=== PATIENT | male | born 1960 | race Caucasian/White ===

== ENCOUNTER 2021-02-25 09:42 | Inpatient (IN) | payer OTHER ==
[2021-02-25 10:19] LABS: Absolute Lymphocytes (CBC) 1.8 K/uL (0.7-4.9); Basophils % 0.6 % (0-1.3); Hematocrit 46.7 % (39.6-49.0); Lymphocytes % 21.3 % (15.3-44.8); MPV 8.1 fL (7.6-11.3); RBC Red Blood Cell Count 4.72 M/uL (4.33-5.43)
[2021-02-25] MEDS ORDERED: METOPROLOL TAR 50 MG TAB ONE (10:19)
[2021-02-25] MEDS ORDERED: NA CHLORIDE 0.9% 1,000 ML ONE (10:19)
[2021-02-25 10:20] LABS: Protime INR 1.05
[2021-02-25] MEDS ORDERED: METOPROLOL TARTRATE 5 MG/5 ML INJ IV ONE ×2 (10:23→11:41)
[2021-02-25] MEDS ORDERED: ENOXAPARIN 100 MG/ML SYR SQ ONE (10:27)
[2021-02-25 10:36] LABS: ALT/SGPT 57 U/L (12-78); AST/SGOT 34 U/L (15-37); Albumin 4.2 g/dL (3.4-5.0); Alkaline Phosphatase 87 U/L (45-117); BUN Blood Urea Nitrogen 13 mg/dL (7-18); Bicarbonate 27 mmol/L (21-32); Bilirubin Direct 0.3 mg/dL (0-0.2); Bilirubin Total 1.1 mg/dL (0.2-1.0); Glucose Level 114 mg/dL (74-106); NT PRO-BNP 2197 pg/mL (<125); Potassium 3.9 mmol/L (3.5-5.1); Protein, Total 7.9 g/dL (6.4-8.2); Sodium Level 138 mmol/L (136-145); Troponin (Emerg Dept Use Only) < 0.02 ng/mL (0.0-0.045)
[2021-02-25] MEDS ORDERED: THIAMINE 200 MG/2 ML INJ ONE (10:44)
[2021-02-25] MEDS ORDERED: Magnesium Sulfate 2gm IVPB 0 G/0 ML BAG IV ONE (10:45)
[2021-02-25] MEDS ORDERED: NA CHLORIDE 0.9% 100 ML ONE (10:48)
[2021-02-25] MEDS ORDERED: FOLIC ACID 5 MG/ML VIAL ONE ×2 (10:49→10:50)
[2021-02-25] MEDS ORDERED: MAGNESIUM SULFATE 1 gm IVPB 1 GM/100 ML BAG IV ONE (10:52)
--- NOTE | 2021-02-25 10:55 | ER ---
Nurse's Notes [facility] Name: Abel Birch Age: 60 yrs Sex: Male : 1960 Arrival Date: 02/25/2021 Time: 09:44 Bed 4 Private MD: Diagnosis: Palpitations;Persistent atrial fibrillation-with rvr;Alcohol abuse Presentation: 02/25 09:52 Chief complaint: Patient states: Rapid heart rate, started yesterday, denies cardiac jl7 history. Coronavirus screen: Vaccine status: Patient reports being unvaccinated. At this time, the client does not indicate any symptoms associated with coronavirus-19. Ebola Screen: No symptoms or risks identified at this time. Initial Sepsis Screen: Does the patient meet any 2 criteria? No. Patient's initial sepsis screen is negative. Does the patient have a suspected source of infection? No. Patient's initial sepsis screen is negative. Risk Assessment: Do you want to hurt yourself or someone else? Patient reports no desire to harm self or others. Onset of symptoms was February 24, 2021. 09:52 Method Of Arrival: Wheelchair jl7 09:52 Acuity: HOMERO 2 jl7 Triage Assessment: 09:55 General: Appears in no apparent distress. uncomfortable, Behavior is calm, cooperative, jl7 appropriate for age. Pain: Denies pain. Cardiovascular: Patient's skin is warm and dry. Historical: - Allergies: 09:54 PENICILLINS; jl7 - Home Meds: 09:54 None [Active]; jl7 - PMHx: 09:54 None; jl7 - PSHx: 09:54 bilateral shoulder; left knee; jl7 - Immunization history:: Adult Immunizations not up to date, Client reports having NOT received the Covid vaccine. - Social history:: Smoking status: Patient denies any tobacco usage or history of. Patient uses alcohol, on a daily basis. Vodka, 5-6 drinks per day, last drink yesterday. - Family history:: not pertinent. Screenin:56 Abuse screen: Denies threats or abuse. Denies injuries from another. Nutritional jl7 screening: No deficits noted. Tuberculosis screening: No symptoms or risk factors identified. 10:12 Fall Risk None identified. No fall in past 12 months (0 pts). tw5 Assessment: 10:12 General: Appears in no apparent distress. Behavior is calm, cooperative, anxious, tw5 Reports "I just didn't feel right." He states that this started yesterday. "I sometimes feel like my head was throbbing and some lightheadness. So I check my blood pressure and heart rate.". Pain: Denies pain. Pain began. Neuro: Level of Consciousness is awake, alert, obeys commands, Oriented to person, place, time, situation. Cardiovascular: Heart tones present Capillary refill < 3 seconds is brisk in bilateral fingers Pulses are 1+ in right radial artery and left radial artery Rhythm is SVT. Respiratory: Airway is patent Trachea midline Respiratory effort is even, unlabored, Respiratory pattern is regular. Derm: Skin is intact, is healthy with good turgor, Skin is diaphoretic, Skin is pink, Skin temperature is cool. Musculoskeletal: No signs and/or symptoms reported regarding the musculoskeletal system. 10:32 Reassessment: Patient appears in no apparent distress at this time. No changes from tw5 previously documented assessment. 10:50 : Urine is clear. tw5 12:38 Reassessment: Patient states symptoms have improved. General: Appears in no apparent tw5 distress. Behavior is calm, cooperative, Reports "I am feeling good.". Cardiovascular: Rhythm is atrial flutter. Vital Signs: 09:52 BP 133 / 96; Pulse 157; Resp 19; Temp 98.3; Pulse Ox 100% on R/A; Weight 92.99 kg; Pain jl7 0/10; 10:12 BP 102 / 83; Pulse 153; Resp 16; Pulse Ox 100% on R/A; Pain 0/10; tw5 11:11 BP 129 / 101; Pulse 126; Resp 18; Pulse Ox 100% on R/A; tr6 12:00 BP 133 / 84; Pulse 85; Resp 18; Pulse Ox 97% on R/A; tr6 12:38 BP 126 / 96; Pulse 77; Resp 16; Pulse Ox 100% on R/A; tw5 ED Course: 09:44 Patient arrived in ED. as 09:49 Pablo Myers MD is Attending Physician. aubree 09:54 Triage completed. jl7 09:55 Arm band placed on right wrist. jl7 09:56 Patient maintains SpO2 saturation greater than 95% on room air. jl7 10:00 No apparent distress. Awaiting lab results. tw5 10:00 Inserted saline lock: 20 gauge in left antecubital area, using aseptic technique. Blood tw5 collected. 10:00 Initial lab(s) drawn, by me, EKG done, by ED staff, COVID swab sent to lab. tw5 10:01 Donna Bejarano is Primary Nurse. tw5 10:12 Patient has correct armband on for positive identification. Placed in gown. Bed in low tw5 position. Call light in reach. Side rails up X 1. [employer] on. Pulse ox on. NIBP on. Door closed. Noise minimized. Lights dimmed. Warm blanket given. Verbal reassurance given. 10:50 Fracisco Kelly DO is Hospitalizing Provider. [facility] 10:50 X-ray(s) taken. tw5 10:55 XRAY Chest (1 view) In Process Unspecified. EDMS 11:27 No provider procedures requiring assistance completed. tr6 12:20 Patient admitted, IV remains in place. tr6 12:38 Awaiting bed assignment. tw5 12:38 Door closed. Noise minimized. Lights dimmed. Verbal reassurance given. tw5 Administered Medications: 10:07 Drug: Lopressor (metoprolol) 5 mg Route: IVP; Site: right antecubital; tw5 10:32 Follow up: Response: No adverse reaction tw5 10:32 Follow up: Response: Cardiac rhythm is unchanged tw5 10:08 Drug: NS 0.9% 1000 ml Route: IV; Rate: 125 ml/hr; Site: right antecubital; tw5 10:08 Drug: Lopressor (metoprolol TARTRATE) 50 mg Route: PO; tw5 12:40 Follow up: Response: No adverse reaction tw5 10:12 Drug: Lovenox (enoxaparin) 90 mg Route: Sub-Q; Site: right lower abdomen; tw5 10:32 Follow up: Response: No adverse reaction tw5 10:35 Drug: Thiamine 100 mg Route: IV; Rate: bolus; Site: right antecubital; tw5 12:40 Follow up: Response: No adverse reaction; IV Status: Completed infusion tw5 10:35 Drug: foLIC Acid 1 mg Route: IVPB; Site: right antecubital; tw5 12:40 Follow up: Response: No adverse reaction; IV Status: Completed infusion tw5 11:13 Drug: Lopressor (metoprolol) 5 mg Route: IVP; Site: right antecubital; 5 12:41 Follow up: Response: No adverse reaction tw5 11:23 Drug: Lopressor (metoprolol) 5 mg Route: IVP; Site: right antecubital; 5 12:40 Follow up: Response: No adverse reaction; Cardiac rhythm changed tw5 11:23 Drug: Digoxin 0.5 mg Route: IVP; Site: right antecubital; 5 12:39 Follow up: Response: No adverse reaction; Cardiac rhythm changed tw5 11:29 Drug: Magnesium Sulfate 1 grams Route: IVPB; Infused Over: 1 hrs; Site: right ch5 antecubital; 14:41 Follow up: Response: No adverse reaction; IV Status: Completed infusion tw5 Outcome: 10:55 Decision to Hospitalize by Provider. aubree 12:20 Admitted to Tele tr6 12:20 Condition: stable 12:20 Instructed on the need for admit, Demonstrated understanding of instructions. 18:05 Patient left the ED. jl7 Signatures: Dispatcher [employer] EDPablo Carbajal MD MD cha Martinez, Amelia as Leal, Jahala, RN RN jl7 Donna Major RN RN tr6 Jose Eduardo Fleming RN RN 5 Donna Bejarano tw5 Corrections: (The following items were deleted from the chart) 09:55 09:54 Allergies: No Known Allergies; jlGary jl7
--- NOTE | 2021-02-25 10:55 | EDPHYS ---
Physician Documentation [facility] Name: Abel Birch Age: 60 yrs Sex: Male : 1960 Arrival Date: 02/25/2021 Time: 09:44 Bed 4 Private MD: LASHELL Physician Pablo Myers HPI: 02/25 10:13 This 60 yrs old Male presents to ER via Wheelchair with complaints of aubree Irregular Pulse. 10:13 The patient presents with a history of irregular heart beat, heart racing. Context: The aubree symptoms occur with anxiety. Onset: The symptoms/episode began/occurred 1 day(s) ago. Duration: The patient or guardian reports a single episode, that is still ongoing, but improving, The patient or guardian reports multiple episodes, that have now resolved. Modifying factors: The symptoms are aggravated by anxiety, The symptoms are alleviated by nothing. Associated signs and symptoms: The patient has no apparent associated signs or symptoms. Severity of symptoms: At their worst the symptoms were mild in the emergency department the symptoms are unchanged. The patient has not experienced similar symptoms in the past. Historical: - Allergies: 09:54 PENICILLINS; jl7 - Home Meds: 09:54 None [Active]; jl7 - PMHx: 09:54 None; jl7 - PSHx: 09:54 bilateral shoulder; left knee; jl7 - Immunization history:: Adult Immunizations not up to date, Client reports having NOT received the Covid vaccine. - Social history:: Smoking status: Patient denies any tobacco usage or history of. Patient uses alcohol, on a daily basis. Vodka, 5-6 drinks per day, last drink yesterday. - Family history:: not pertinent. ROS: 10:13 Constitutional: Negative for fever, chills, and weight loss, Eyes: Negative for injury, aubree pain, redness, and discharge, ENT: Negative for injury, pain, and discharge, Neck: Negative for injury, pain, and swelling, Respiratory: Negative for shortness of breath, cough, wheezing, and pleuritic chest pain, Abdomen/GI: Negative for abdominal pain, nausea, vomiting, diarrhea, and constipation, Back: Negative for injury and pain, : Negative for injury, bleeding, discharge, and swelling, MS/Extremity: Negative for injury and deformity, Skin: Negative for injury, rash, and discoloration, Neuro: Negative for headache, weakness, numbness, tingling, and seizure, Psych: Negative for depression, anxiety, suicide ideation, homicidal ideation, and hallucinations, Allergy/Immunology: Negative for hives, rash, and allergies, Endocrine: Negative for neck swelling, polydipsia, polyuria, polyphagia, and marked weight changes, Hematologic/Lymphatic: Negative for swollen nodes, abnormal bleeding, and unusual bruising. 10:13 Cardiovascular: Positive for palpitations. Exam: 10:13 Constitutional: This is a well developed, well nourished patient who is awake, alert, aubree and in no acute distress. Head/Face: Normocephalic, atraumatic. Eyes: Pupils equal round and reactive to light, extra-ocular motions intact. Lids and lashes normal. Conjunctiva and sclera are non-icteric and not injected. Cornea within normal limits. Periorbital areas with no swelling, redness, or edema. ENT: Nares patent. No nasal discharge, no septal abnormalities noted. Tympanic membranes are normal and external auditory canals are clear. Oropharynx with no redness, swelling, or masses, exudates, or evidence of obstruction, uvula midline. Mucous membranes moist. Neck: Trachea midline, no thyromegaly or masses palpated, and no cervical lymphadenopathy. Supple, full range of motion without nuchal rigidity, or vertebral point tenderness. No Meningismus. Chest/axilla: Normal chest wall appearance and motion. Nontender with no deformity. No lesions are appreciated. Respiratory: Lungs have equal breath sounds bilaterally, clear to auscultation and percussion. No rales, rhonchi or wheezes noted. No increased work of breathing, no retractions or nasal flaring. Abdomen/GI: Soft, non-tender, with normal bowel sounds. No distension or tympany. No guarding or rebound. No evidence of tenderness throughout. Back: No spinal tenderness. No costovertebral tenderness. Full range of motion. Male : Normal genitalia with no discharge or lesions. Skin: Warm, dry with normal turgor. Normal color with no rashes, no lesions, and no evidence of cellulitis. MS/ Extremity: Pulses equal, no cyanosis. Neurovascular intact. Full, normal range of motion. Neuro: Awake and alert, GCS 15, oriented to person, place, time, and situation. Cranial nerves II-XII grossly intact. Motor strength 5/5 in all extremities. Sensory grossly intact. Cerebellar exam normal. Normal gait. Psych: Awake, alert, with orientation to person, place and time. Behavior, mood, and affect are within normal limits. 10:13 Cardiovascular: Rate: tachycardic, Rhythm: irregularly irregular, Pulses: Pulses are 4+ in bilateral radial, brachial, femoral, popliteal, posterior tibial and and dorsalis pedis arteries.. Heart sounds: normal, Edema: is not appreciated, JVD: is not appreciated. Vital Signs: 09:52 BP 133 / 96; Pulse 157; Resp 19; Temp 98.3; Pulse Ox 100% on R/A; Weight 92.99 kg; Pain jl7 0/10; 10:12 BP 102 / 83; Pulse 153; Resp 16; Pulse Ox 100% on R/A; Pain 0/10; tw5 11:11 BP 129 / 101; Pulse 126; Resp 18; Pulse Ox 100% on R/A; tr6 12:00 BP 133 / 84; Pulse 85; Resp 18; Pulse Ox 97% on R/A; tr6 12:38 BP 126 / 96; Pulse 77; Resp 16; Pulse Ox 100% on R/A; tw5 MDM: 09:49 Patient medically screened. aubree 10:49 CINTHIA Risk Score: Total Score = 0. Differential diagnosis: arrythmia, dehydration, aubree stress disorder. Data reviewed: vital signs, nurses notes, lab test result(s), EKG, radiologic studies, plain films. Data interpreted: engine monitor: rate is 153 beats/min, rhythm is atrial fibrillation, irregularly irregular, Pulse oximetry: on room air is 100 %. Test interpretation: by ED physician or midlevel provider: ECG, plain radiologic studies. Counseling: I had a detailed discussion with the patient and/or guardian regarding: the presence of at least one elevated blood pressure reading (>120/80) during this emergency department visit, lab results, radiology results, the need for further work-up and treatment in the hospital. 02/25 09:51 Order name: Basic Metabolic Panel; Complete Time: 11:06 [facility] 02/25 09:51 Order name: CBC with Diff; Complete Time: 10:44 [facility] 02/25 09:51 Order name: LFT's; Complete Time: 11:06 [facility] 02/25 09:51 Order name: Magnesium; Complete Time: 11:06 [facility] 02/25 09:51 Order name: NT PRO-BNP; Complete Time: 11:06 [facility] 02/25 09:51 Order name: PT-INR; Complete Time: 10:44 [facility] 02/25 09:51 Order name: Troponin (emerg Dept Use Only); Complete Time: 11:06 [facility] 02/25 09:51 Order name: XRAY Chest (1 view); Complete Time: 14:42 [facility] 02/25 09:51 Order name: TSH; Complete Time: 11:06 [facility] 02/25 09:51 Order name: Echo w/ Doppler [facility] 02/25 10:40 Order name: T4 Free; Complete Time: 11:06 [facility] 02/25 11:02 Order name: Urine Dipstick-Ancillary; Complete Time: 11:06 [facility] 02/25 11:13 Order name: SARS-COV-2 RT PCR; Complete Time: 14:42 [facility] 02/25 09:51 Order name: EKG; Complete Time: 09:52 [facility] 02/25 09:51 Order name: Cardiac monitoring; Complete Time: 10:03 [facility] 02/25 09:51 Order name: EKG - Nurse/Tech; Complete Time: 10:03 [facility] 02/25 10:29 Order name: EKG; Complete Time: 10:30 [facility] 02/25 13:17 Order name: Echo with Doppler [facility] 02/25 14:52 Order name: Diet Heart Healthy; Complete Time: 14:53 [facility] 02/25 09:51 Order name: IV Saline Lock; Complete Time: 10:02 [facility] 02/25 09:51 Order name: Labs collected and sent; Complete Time: 10:02 [facility] 02/25 09:51 Order name: O2 Per Protocol; Complete Time: 10:06 [facility] 02/25 09:51 Order name: O2 Sat Monitoring; Complete Time: 10:06 [facility] 02/25 09:51 Order name: Urine Dipstick-Ancillary (obtain specimen); Complete Time: 12:20 [facility] 02/25 10:29 Order name: EKG - Nurse/Tech; Complete Time: 10:43 [facility] Administered Medications: 10:07 Drug: Lopressor (metoprolol) 5 mg Route: IVP; Site: right antecubital; tw5 10:32 Follow up: Response: No adverse reaction tw5 10:32 Follow up: Response: Cardiac rhythm is unchanged tw5 10:08 Drug: NS 0.9% 1000 ml Route: IV; Rate: 125 ml/hr; Site: right antecubital; tw5 10:08 Drug: Lopressor (metoprolol TARTRATE) 50 mg Route: PO; tw5 12:40 Follow up: Response: No adverse reaction tw5 10:12 Drug: Lovenox (enoxaparin) 90 mg Route: Sub-Q; Site: right lower abdomen; tw5 10:32 Follow up: Response: No adverse reaction tw5 10:35 Drug: Thiamine 100 mg Route: IV; Rate: bolus; Site: right antecubital; tw5 12:40 Follow up: Response: No adverse reaction; IV Status: Completed infusion tw5 10:35 Drug: foLIC Acid 1 mg Route: IVPB; Site: right antecubital; tw5 12:40 Follow up: Response: No adverse reaction; IV Status: Completed infusion tw5 11:13 Drug: Lopressor (metoprolol) 5 mg Route: IVP; Site: right antecubital; ch5 12:41 Follow up: Response: No adverse reaction tw5 11:23 Drug: Lopressor (metoprolol) 5 mg Route: IVP; Site: right antecubital; ch5 12:40 Follow up: Response: No adverse reaction; Cardiac rhythm changed tw5 11:23 Drug: Digoxin 0.5 mg Route: IVP; Site: right antecubital; ch5 12:39 Follow up: Response: No adverse reaction; Cardiac rhythm changed tw5 11:29 Drug: Magnesium Sulfate 1 grams Route: IVPB; Infused Over: 1 hrs; Site: right ch5 antecubital; 14:41 Follow up: Response: No adverse reaction; IV Status: Completed infusion tw5 Disposition Summary: 02/25/21 10:55 Hospitalization Ordered Hospitalization Status: Observation aubree Provider: Fracisco Kelly cha Location: Telemetry/MedSurg (observation) aubree Condition: Fair aubree Problem: new aubree Symptoms: have improved aubree Bed/Room Type: Standard aubree Room Assignment: 429(02/25/21 17:03) bd Diagnosis - Palpitations aubree - Persistent atrial fibrillation - with rvr aubree - Alcohol abuse aubree Forms: - Medication Reconciliation Form aubree - SBAR form aubree Signatures: Dispatcher [employer] EDMS Dirrim, Inge bd Louis, Pablo, MD MD aubree Magallanes, Jahala, RN RN jl7 Jose Eduardo Fleming RN RN 5 Donna Bejarano 5 Corrections: (The following items were deleted from the chart) 09:55 09:54 Allergies: No Known Allergies; lázaro jl7 10:19 10:01 CORONAVIRUS+.BRZ ordered. EDMS EDMS 17:03 10:55 aubree munoz
[2021-02-25 11:02] LABS: Urine Blood Negative (Negative); Urine Glucose Negative (Negative); Urine Protein Negative (Negative); Urine Specific Gravity 1.015 (1.005-1.030); Urine pH 6.5 (5.0-7.0)
[2021-02-25] MEDS ORDERED: DIGOXIN 0.25 MG/ML AMP ONE (11:41)
--- NOTE | 2021-02-25 12:23 | RAD REPORT ---
EXAM DESCRIPTION: RAD - Chest Single View - 02/25/2021 10:55 am CLINICAL HISTORY: COUGH COMPARISON: None TECHNIQUE: AP portable chest image was obtained 02/25/2021 10:55 am . FINDINGS: Lungs are clear. Heart size is upper normal. Vasculature within normal limits. No measurab le pleural effusion and no pneumothorax. No acute bony abnormality seen. No acute aortic findings claudio pected. IMPRESSION: No acute cardiopulmonary process.
[2021-02-25 14:38] VITALS: BMI 29.4
--- NOTE | 2021-02-25 14:57 | P.HP ---
Certification for Inpatient Patient admitted to: Observation With expected LOS: <2 Midnights Patient will require the following post-hospital care: None Practitioner: I am a practitioner with admitting privileges, knowledge of patient current condition, hospital course, and medical plan of care. Services: Services provided to patient in accordance with Admission requirements found in Title 42 Section 412.3 of the Code of Federal Regulations Patient History Date of Service: 02/25/21 Primary Care Provider: Dr. Medina Reason for admission: Palpitations, SOB History of Present Illness: 60-year-old male presented to the emergency room with palpitations and shortness of breath. Patient reported symptoms since yesterday. Patient also reports similar episodes about a year ago. He denies any significant chest pain, edema, fever or chills. He came to the ER for further evaluation. In the ER patient was evaluated. Patient found to have atrial fibrillation with RVR. Patient was given metoprolol IV 5 mg then 50 mg oral. Heart rate has improved. Patient admitted for further evaluation and treatment. Patient stable at this time. Patient admits to alcohol use. No prior history of atrial fibrillation. No family history of atrial fibrillation that he reports. Allergies Penicillins Allergy (Verified 02/25/21 14:17) Rash Home Medications: NK [No Home Meds] 02/25/21 - Past Medical/Surgical History Has patient received pneumonia vaccine in the past: Yes Diabetic: No Past Medical History: Patient denies medical history -: Left shoulder surgery- 2015 -: Left Knee Surgery-2007 Psychosocial/ Personal History: Patient lives at home - Family History Family History: Reviewed- Non-Contributory - Social History Smoking Status: Never smoker Alcohol use: Yes CD- Drugs: No Caffeine use: Yes Place of Residence: Home Review of Systems General: As per HPI Eyes: As per HPI ENT: Unremarkable Respiratory: Shortness of Breath, As per HPI Cardiovascular: Palpitations, As per HPI Gastrointestinal: Unremarkable Genitourinary: Unremarkable Musculoskeletal: Unremarkable Integumentary: Unremarkable Neurological: Unremarkable Lymphatics: Unremarkable Physical Examination - Vital Signs Blood Pressure: 138/95 Pulse: 79 Respirations: 16 Pulse Ox (%): 100 - Studies Laboratory Data (last 24 hrs) 02/25/21 10:00: PT 12.1, INR 1.05 02/25/21 10:00: WBC 8.40, Hgb 15.7, Hct 46.7, Plt Count 212 02/25/21 10:00: Sodium 138, Potassium 3.9, BUN 13, Creatinine 1.00, Glucose 114 H, Magnesium 2.0, Total Bilirubin 1.1 H, AST 34, ALT 57, Alkaline Phosphatase 87 Assessment and Plan - Plan Physical Exam: GENERAL: The patient is a well-developed, well-nourished, in no apparent distress. Alert and oriented x3. VITAL SIGNS: Reviewed HEENT: Head is normocephalic and atraumatic. Extraocular muscles are intact. Pupils are equal, round, and reactive to light and accommodation. Nares appeared normal. Mouth is well hydrated and without lesions. Mucous membranes are moist. NECK: Supple. No carotid bruits. No lymphadenopathy or thyromegaly. LUNGS: Clear to auscultation. No crackles or wheezes are heard. HEART: Atrial fibrillation rate controlled ABDOMEN: Soft, nontender, and nondistended. Positive bowel sounds. No hepatosplenomegaly was noted. EXTREMITIES: Without any cyanosis, clubbing, rash, lesions or peripheral edema. NEUROLOGIC: The patient is oriented to person, place and time. Strength and sensation are grossly intact. Face is symmetric. SKIN: Normal color, turgor and temperature. No ulcerations or rashes noted. Impression: Atrial fibrillation with RVR Hypertension Alcohol use Plan: Atrial fibrillation with RVR: Patient admitted for further evaluation and observation. Will continue with metoprolol 50 mg 1 pill twice daily. Will start Lovenox at 1 mg/kg subcu twice daily. Will obtain echocardiogram to further evaluate. Case discussed with cardiology. Await further recommendations from cardiology. We will also start thiamine and folic acid. Alcohol cessation addressed in detail. Patient plans to quit. Will monitor the patient closely. Hopefully patient will convert back to normal rhythm. If this persists await recommendations by cardiology. Hypertension: Continue with metoprolol. May require additional medication. Alcohol use: Patient admits to alcohol use. Cessation education provided. Patient plans to quit. Code Status: Full Code DVT prophylaxis: Lovenox Advanced Care Planning-30 minutes: Home at discharge Discharge Plan: Home Plan to discharge in: 48 Hours - Advance Directives Does patient have a Living Will: No Does patient have a Durable POA for Healthcare: No Time Spent Managing Pts Care (In Minutes): 55
--- NOTE | 2021-02-25 16:40 | EKG ---
Test Date: 2021-02-25 Test Time: 09:58:44 Brakes Inspector: RICKIE MEASUREMENT RESULTS: Intervals: Rate: 159 MI: QRSD: 104 QT: 308 QTc: 501 [place]: P: MI: QRS: 20 T: -80 INTERPRETIVE STATEMENTS: Supraventricular tachycardia Incomplete right bundle branch block Septal infarct, age undetermined ST & T wave abnormality, consider inferolateral ischemia Abnormal ECG No previous ECG available for comparison Electronically Signed On 02-25-21 16:38:52 CDT by Kit Daniels
--- NOTE | 2021-02-25 17:21 | P.DS ---
Admission Date: 02/25/21 Discharge Date: 02/25/21 Primary Care Provider: Dr. Medina Disposition: ROUTINE DISCHARGE Discharge Condition: GOOD Reason for Admission: Palpitations, SOB Consultations: Cardiology-Dr. Daniels Procedures: Medical problem list Atrial fibrillation with RVR Hypertension Alcohol use Brief History of Present Illness: 60-year-old male presented to the emergency room with palpitations and shortness of breath. Patient reported symptoms since yesterday. Patient also reports similar episodes about a year ago. He denies any significant chest pain, edema, fever or chills. He came to the ER for further evaluation. In the ER patient was evaluated. Patient found to have atrial fibrillation with RVR. Patient was given metoprolol IV 5 mg then 50 mg oral. Heart rate has improved. Patient admitted for further evaluation and treatment. Patient stable at this time. Patient admits to alcohol use. No prior history of atrial fibrillation. No family history of atrial fibrillation that he reports. Hospital Course: Patient presented with atrial fibrillation with RVR. Patient was started on metoprolol IV and switched over to oral metoprolol. Patient converted to normal sinus rhythm. Patient was seen and evaluated by cardiology. This was likely related to his alcohol use. Patient admits to severe alcohol use. Patient plans to quit. Case discussed at length with cardiology. Patient will be discharged home. Patient will continue with metoprolol XL 50 mg daily and aspirin 81 mg daily. Recommend follow-up with cardiology in 1 to 2 weeks to follow-up his hospitalization. Patient with alcohol abuse. Patient plans to quit. Alcohol cessation education provided. Patient with hypertension. As mentioned above patient will continue with metoprolol XL 50 mg daily. Blood pressure stable at this time. Recommend to maintain blood pressure less than 130/80. Further adjustment can be done by his PCP. Vital Signs/Physical Exam: Temp Pulse Resp BP Pulse Ox 98.5 F 53 16 140/93 H 99 02/25/21 16:00 02/25/21 16:00 02/25/21 16:00 02/25/21 16:02/25/21 16:00 General: Alert, In no apparent distress, Oriented x3, Cooperative HEENT: Atraumatic Neck: Supple Respiratory: Clear to auscultation bilaterally, Normal air movement Cardiovascular: Normal pulses, Regular rate/rhythm Gastrointestinal: Normal bowel sounds, No tenderness, No masses, No rebound, No guarding Musculoskeletal: No erythema, No tenderness, No warmth Integumentary: No tenderness/swelling Neurological: Normal speech, Normal strength at 5/5 x4 extr, Normal tone, Normal affect Laboratory Data at Discharge: WBC 8.40 K/uL (4.3-10.9) 02/25/21 10:00 Hgb 15.7 g/dL (13.6-17.9) 02/25/21 10:00 Hct 46.7 % (39.6-49.0) 02/25/21 10:00 Plt Count 212 K/uL (152-406) 02/25/21 10:00 PT 12.1 SECONDS (9.5-12.5) 02/25/21 10:00 INR 1.05 02/25/21 10:00 Sodium 138 mmol/L (136-145) 02/25/21 10:00 Potassium 3.9 mmol/L (3.5-5.1) 02/25/21 10:00 BUN 13 mg/dL (7-18) 02/25/21 10:00 Creatinine 1.00 mg/dL (0.55-1.3) 02/25/21 10:00 Glucose 114 mg/dL (74-106) H 02/25/21 10:00 Magnesium 2.0 mg/dL (1.8-2.4) 02/25/21 10:00 Total Bilirubin 1.1 mg/dL (0.2-1.0) H 02/25/21 10:00 AST 34 U/L (15-37) 02/25/21 10:00 ALT 57 U/L (12-78) 02/25/21 10:00 Alkaline Phosphatase 87 U/L (45-117) 02/25/21 10:00 Home Medications: Aspirin [Aspirin EC 81 MG] 81 mg PO DAILY #90 tablet. 02/25/21 Metoprolol Succinate [Toprol Xl] 50 mg PO DAILY #30 tab 02/25/21 Thiamine HCl 100 mg PO DAILY #90 tablet 02/25/21 New Medications: Aspirin [Aspirin EC 81 MG] 81 mg PO DAILY #90 tablet. Thiamine HCl 100 mg PO DAILY #90 tablet Metoprolol Succinate [Toprol Xl] 50 mg PO DAILY #30 tab Physician Discharge Instructions: Patient presented with atrial fibrillation with RVR. Patient was started on metoprolol IV and switched over to oral metoprolol. Patient converted to normal sinus rhythm. Patient was seen and evaluated by cardiology. This was likely related to his alcohol use. Patient admits to severe alcohol use. Patient plans to quit. Case discussed at length with cardiology. Patient will be discharged home. Patient will continue with metoprolol XL 50 mg daily and aspirin 81 mg daily. Recommend follow-up with cardiology in 1 to 2 weeks to follow-up his hospitalization. Patient with alcohol abuse. Patient plans to quit. Alcohol cessation education provided. Patient with hypertension. As mentioned above patient will continue with metoprolol XL 50 mg daily. Blood pressure stable at this time. Recommend to maintain blood pressure less than 130/80. Further adjustment can be done by his PCP. Diet: AHA Activity: Ad jesús Followup: NONE,NONE [Primary Care Provider] - Time spent managing pt's care (in minutes): 55
[2021-02-25] MEDS ORDERED: METOPROLOL TAR 25 MG TAB PO SCH (18:00)
[2021-02-25 18:14] VITALS: BP 135/83; TEMP 97.9
[2021-02-25 18:17] VITALS: O2SAT 100
[2021-02-25] MEDS ORDERED: METOPROLOL TAR 50 MG TAB PO SCH (21:00)
[2021-02-25] MEDS ORDERED: FAMOTIDINE 20 MG TAB PO SCH (21:00)
[2021-02-25] MEDS ORDERED: ENOXAPARIN 100 MG/ML SYR SQ SCH (21:00)
--- NOTE | 2021-02-26 06:13 | CON ---
Date of Consultation: 02/25/2021 Reason For Consultation: Atrial fibrillation. History Of Present Illness: Mr. Birch is a 60-year-old white male, originally with no significan t past medical history. He came in with atrial fibrillation, irregular heartbeat. No chest pain, na usea, vomiting, diaphoresis, PND, orthopnea, pedal edema, or syncope. Denied any fever or chills. A dmitted to alcohol use. Allergies: PENICILLIN. Past Medical History: Negative. Medications: At home are negative. Review of Systems: Negative. Social History: Positive for alcohol. Family History: Noncontributory. Physical Examination: General: By the time I saw him, he was already in sinus rhythm after receiving metoprolol IV and p.o . Vital Signs: Otherwise stable and afebrile. HEENT: Negative. Neck: Supple. No bruit. Chest: Clear. Cardiac: Normal. Abdomen: Benign. Extremities: Revealed no clubbing, cyanosis, or edema. Diagnostic Data: All normal. 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 He is on aspirin. Echocardiogram is normal. He can go home today on metop rolol and aspirin, and I will see him in the office in the next 2 weeks. The use of alcohol was disc ussed with him in detail. He needs to cut back on the alcohol intake. He has a low CHADS score. He does not need to be on his significant anticoagulation except for aspirin. Case was discussed with Dr. Kelly. CORDELIA/ALTA Voice ID: [id number] Report ID: [id number]
[2021-02-26] MEDS ORDERED: FOLIC ACID 1 MG TABLET PO SCH (09:00)
[2021-02-26] MEDS ORDERED: THIAMINE HCL 100 MG TABLET PO SCH (09:00)
--- NOTE | 2021-02-26 10:25 | ECHO ---
HEIGHT: 5 ft 10 in WEIGHT: 205 lb 0 oz DATE OF STUDY: 02/25/[address]: Pablo Myers MD 2-DIMENSIONAL: YES M.MODE: YES DOPPLER: YES COLOR FLOW: YES TDS: PORTABLE: DEFINITY: BUBBLE STUDY: DIAGNOSIS: ATRIAL FIBRILLATION WITH RAPID VENTRICULAR RESPONSE CARDIAC HISTORY: CATHERIZATION: NO SURGERY: NO PROSTHETIC VALVE: NO PACEMAKER: NO MEASUREMENTS (cm) DIASTOLIC (NORMALS) SYSTOLIC (NORMALS) IVSd (0.6-1.2) LA Diam (1.9-4.0) LVEF % LVIDd (3.5-5.7) LVIDs (2.0-3.5) %FS % LVPWd (0.6-1.2) Ao Diam (2.0-3.7) 2 DIMENSIONAL ASSESSMENT: RIGHT ATRIUM: LEFT ATRIUM: RIGHT VENTRICLE: LEFT VENTRICLE: TRICUSPID VALVE: MITRAL VALVE: PULMONIC VALVE: AORTIC VALVE: PERICARDIAL EFFUSION: AORTIC ROOT: LEFT VENTRICULAR WALL MOTION: DOPPLER/COLOR FLOW: COMMENTS: TECHNICALLY DIFFICULT STUDY. ATRIAL FIBRILLATION. GROSSLY NORMAL LEFT SIZE AND FUNCTION. MILD TRICUSPID REGURGITATION. TECHNOLOGIST: JIMENA COBOS
--- NOTE | 2021-02-26 16:59 | EKG ---
Test Date: 2021-02-25 Test Time: 11:37:03 [place] Automatic: TTR MEASUREMENT RESULTS: Intervals: Rate: 161 [place]: QRSD: 32 QT: 92 QTc: 150 [place]: P: 80 [place]: QRS: 0 T: 85 INTERPRETIVE STATEMENTS: Atrial flutter with variable AV block with premature ventricular or aberrantly conducted complexes Pulmonary disease pattern Consider right ventricular involvement in acute inferior infarct Abnormal ECG Compared to ECG 02/25/2021 09:58:44 [facility] Electronically Signed On 02-26-21 16:58:40 CDT by Kit Daniels
== END 2021-02-25 19:00 | disposition home or self-care (01) | DRG 310 ==
LOC: ER 09:42 → ERHOLD 13:28 → 4TH 17:34
PROVIDERS: ADMIT Family Medicine; ATTEND Family Medicine
DX: I48.91 Unspecified atrial fibrillation (principal); I10 Essential (primary) hypertension; Z72.89 Other problems related to lifestyle; Z88.0 Allergy status to penicillin; Z20.822 Contact with and (suspected) exposure to COVID-19
CPT/HCPCS: 36415; 71045; 80048; 80076; 81003; 83735; 83880; 84439; 84443; 84484; 85025; 85610; 93005; 93306; 96365; 96366; 96367; 96368; 96372; 96375; 99285; J1160; J1650; J3411; J3475; J7030; U0003

== ENCOUNTER 2021-03-31 07:29 | Day surgery (SDC) | payer OTHER ==
[2021-03-28 10:11] LABS: Absolute Lymphocytes (CBC) 2.7 K/uL (0.7-4.9); Basophils % 0.4 % (0-1.3); Hematocrit 46.2 % (39.6-49.0); Lymphocytes % 27.4 % (15.3-44.8); MPV 8.6 fL (7.6-11.3); RBC Red Blood Cell Count 4.69 M/uL (4.33-5.43)
[2021-03-28 10:24] LABS: Protime INR 0.98
[2021-03-28 10:25] LABS: Potassium 4.7 mmol/L (3.5-5.1)
--- NOTE | 2021-03-29 14:24 | EKG ---
Test Date: 2021-03-28 Test Time: 08:32:02 [place] Attendant: JULIANA MEASUREMENT RESULTS: Intervals: Rate: 57 AL: 162 QRSD: 84 QT: 414 QTc: 402 [place]: P: -14 AL: 162 QRS: 17 T: 28 INTERPRETIVE STATEMENTS: Sinus bradycardia Otherwise normal ECG Compared to ECG 02/25/2021 11:37:03 Atrial flutter no longer present Ventricular premature complex(es) no longer present Myocardial infarct finding no longer present Electronically Signed On 03-29-21 14:21:48 CDT by Kit Daniels
[2021-03-31] MEDS ORDERED: NA CHLORIDE 0.9% 500 ML ONE ×2 (08:52→10:20)
[2021-03-31] MEDS ORDERED: MIDAZOLAM HCL 2 MG/2 ML INJ ONE ×2 (09:40→09:53)
[2021-03-31] MEDS ORDERED: FENTANYL CITR 100 MCG/2 ML ONE (09:41)
[2021-03-31] MEDS ORDERED: NITROGLYCERIN/D5W 0 MG/0 ML BTL IV ONE (09:41)
[2021-03-31] MEDS ORDERED: ATROPINE SULF 1 MG/10 ML SYR IV ONE (09:41)
[2021-03-31] MEDS ORDERED: NA CHLORIDE 0.9% 0 ML ONE (09:41)
[2021-03-31] MEDS ORDERED: NITROGLYCERIN 100 MCG/ML SYR (for cath lab use only) IV ONE (09:41)
[2021-03-31] MEDS ORDERED: METOPROLOL TARTRATE 5 MG/5 ML INJ IV ONE (09:51)
[2021-03-31] MEDS ORDERED: AMIODARONE IN DEXTROSE,ISO-OSM 0 MG/0 ML BAG IV ONE (09:54)
--- NOTE | 2021-03-31 10:44 | OP ---
Surgeon: Kit Daniels MD Care Aide: Smith. The patient will remain at bedrest for 2 hours after an Angio-Seal. I will see him in the office patrick john. Procedure Performed: Admitted today as an outpatient to the microbiology lab technician for heart catheterization, shavonne ctive coronary arteriogram. Indication: Atrial flutter, abnormal stress test, routine abnormal Cardiolite. Procedure In Detail: The patient was prepped and draped in routine sterile fashion. Was found to hensley ve atrial flutter at a rate of 140. He has not been taking his metoprolol at home except on an as-ne eded basis, completely asymptomatic, normotensive. Prepped and draped in routine sterile fashion. Ramya jarvis Versed for sedation. A 6-Indonesian sheath introduced in the right common femoral artery successful ly. Angiography using left and right Pancho catheter showed a tortuous vessel, very large, minimal plaquing. No focal stenosis. RCA was codominant and again was very large vessel, tortuous. Angiogr aphy of the iliac showed tortuous iliac as well. Angio-Seal was used to close the case. There were no complications. Blood Loss: 10 cc. Postoperative Diagnoses: 1.Atrial flutter. 2.Low ejection fraction. 3.Positive stress test. 4.Normal coronaries. We will continue beta-blockers and aspirin. I think the patient is going to have to have antiarrhyth casandra such as sotalol or amiodarone. I will discuss that with him in more details. Anesthesia: Total conscious sedation was 45 minutes. CORDELIA/ALTA Voice ID: [id number] Report ID: [id number]
[2021-03-31 15:04] VITALS: BP 103/78; TEMP 97; O2SAT 99
== END 2021-03-31 12:07 | disposition home or self-care (01) ==
LOC: PRE 07:29 → CCL 12:07
DX: R94.39 Abnormal result of other cardiovascular function study (principal); I48.92 Unspecified atrial flutter; I48.0 Paroxysmal atrial fibrillation; I77.1 Stricture of artery; Z88.0 Allergy status to penicillin; Z20.822 Contact with and (suspected) exposure to COVID-19; Z82.49 Family history of ischemic heart disease and other diseases of the circulatory system
CPT/HCPCS: 93005; 85025; 80048; 36415; 85610; 85730; 93454; U0003; C1893; C1760; J2250; J3010; J7040 ×2; J0282; J0583

== ENCOUNTER 2021-10-19 09:23 | Emergency (ER) | payer OTHER ==
--- OUTSIDE RECORDS SUMMARY | 2021-10-19 09:26 | XMS REPORT | Continuity of Care Document ---
:1960 Author Organization [facility] t Address [address] [place] [address] Care Team Providers Name Role Phone Hi CONTRERAS, Nely Attending Clinician Payers Payer Name Policy Type Policy Number Effective Date Expiration Date S ource Problems Condition Condition Condition Status Onset Resolution Last Treating Co mments Source Name Details Category Date Date Treatment Clinician Date Left Left Disease Active Univers shoulder shoulder 3-14 ity of pain pain 00:00: [place] [address] [facility] Branch Allergies, Adverse Reactions, Alerts Allergy Allergy Status Severity Reaction(s) Onset Inactive Treating Comm ents Source Name Type Date Date Clinician Penicill Propensi Active Rash Univer s ins ty to 3-14 ity of adverse 00:00: [place] reaction Medical s [facility] Social History Social Habit Start Date Stop Date Quantity Comments Source Alcohol intake [facility] Smoking Status Start Date Stop Date Source Never smoker General acute hospital Medications Ordered Filled Start Stop Current Ordering Indication Dosage Frequency Signature Comments Components Source Medication Medication Date Date Medication? Clinician (SIG) Name Name diclofenac Yes [id number] 75mg Take 1 U nivers 75 mg EC 7-26 tablet by ity of tablet 00:00: mouth 2 [place] [address] (two) Medical times Branch daily with meals. diclofenac Yes [id number] 75mg Take 1 U nivers 75 mg EC 7-26 tablet by ity of tablet 00:00: mouth 2 [place] [address] (two) Medical times Branch daily with meals. acetaminoph 2015-05 Yes TAKE 1 TO U nivers en-codeine 1-30 2 TABLETS ity of (TYLENOL 00:00: BY MOUTH [place] #3) 300-30 00 EVERY 6 Medica l mg tablet HOURS Branch NEEDED FOR PAIN acetaminoph 2015-05 Yes TAKE 1 TO U nivers en-codeine 1-30 2 TABLETS ity of (TYLENOL 00:00: BY MOUTH [place] #3) 300-30 00 EVERY 6 Medica l mg tablet HOURS Branch NEEDED FOR PAIN Vital Signs Vital Name Observation Time Observation Value Comments Source Systolic blood 2018-12-23 13:53:00 114 mm[Hg] Univer sity of pressure [facility] Diastolic blood 2018-12-23 13:53:00 76 mm[Hg] Unive rsity [facility] Heart rate 2018-12-23 13:53:00 94 /min [facility] Respiratory rate 2018-12-23 13:53:00 18 /min [facility] Body height 2018-12-23 13:53:00 177.8 cm [facility] Body weight 2018-12-23 13:53:00 97.523 kg [facility] BMI 2018-12-23 13:53:00 30.85 kg/m2 [facility] Procedures This patient has no known procedures. Encounters Start End Encounter Admission Attending Care Care Encounter Source Date/Time Date/Time Type Type Clinicians Facility Department ID 2018-12-23 2018-12-23 Office Do, [facility] [id number] [facility] 08:44:48 09:35:46 Visit [facility] [id number] it y of Surgical [id number] Leo as Specialti [id number] [place] dical es [address] [place] Results This patient has no known results.
[2021-10-19 10:06] LABS: Absolute Lymphocytes (CBC) 2.6 K/uL (0.7-4.9); Hematocrit 45.9 % (39.6-49.0); Lymphocytes % 22.7 % (15.3-44.8); MPV 8.1 fL (7.6-11.3)
[2021-10-19] MEDS ORDERED: ASPIRIN 325 MG TAB ONE ×2 (10:06→10:08)
[2021-10-19] MEDS ORDERED: ASPIRIN 81 MG CHEWABLE TABLET ONE (10:12)
--- NOTE | 2021-10-19 10:34 | RAD REPORT ---
EXAM DESCRIPTION: CT - Ct Stroke Brain Wo Cont - 10/19/2021 10:20 am CLINICAL HISTORY: Left sided weakness COMPARISON: <Comparisons> TECHNIQUE: Axial 5 millimeter thick images of the head were obtained without IV contrast. All CT scans are performed using dose optimization technique as appropriate and may include automated exposure control or mA/KV adjustment according to patient size. FINDINGS: No intracranial hemorrhage is present. There is no midline shift. There is a large nonhemo rrhagic acute/subacute CVA involving the majority of the right temporal lobe extending posteriorly to the temporal occipital junction. Additional acute/ subacute non infarction changes involve the right head of the caudate and lentiform nucleus. The basal ganglia infarction extends to the subcortical i nsular cortex. The insular cortex does not appear edematous. There is superior extension into the yenny p periventricular white matter of the right frontal lobe. Small area of infarction is seen in the inf erior aspect of the right frontal lobe anterior to the basal ganglia. Superior aspects of the right frontal lobe and the right parietal lobe are mostly uninvolved. There m ay be involvement of the lateral aspect of the thalamus and the posterior limb internal capsule. Left cerebral hemispheres uninvolved. Ventricles are normal size. Patient does have some mild volume loss given the patient's age. No extra-axial fluid collections. No globe or orbital content abnormality. Visualized portions of the mastoid air cells, paranasal sinuses, and orbits are unremarkable. Findings telephoned to Vas[place] 9:33 a.m. IMPRESSION: Large area of nonhemorrhagic acute/ subacute infarction involving majority of the right temporal lobe, right basal ganglia, lateral margin of the right thalamus and posterior limb internal capsule. Additional nonhemorrhagic infarction changes extend into the right frontal lobe periventricular white matter and posteriorly to the temporal occipital junction. There is mild localized mass effect. No midline shift is present.
--- NOTE | 2021-10-19 11:05 | RAD REPORT ---
EXAM DESCRIPTION: RAD - Chest Single View - 10/19/2021 10:45 am CLINICAL HISTORY: Left sided weakness, Stroke protocol chest film COMPARISON: Portable 02/25/2021 TECHNIQUE: AP portable chest image was obtained 10/19/2021 10:45 am . FINDINGS: Lungs are clear. Heart and vasculature are normal. No measurable pleural effusion and no p neumothorax. No acute bony abnormality seen. No acute aortic findings suspected. IMPRESSION: No acute cardiopulmonary process. No significant change from comparison study.
[2021-10-19] MEDS ORDERED: ATORVASTATIN 20 MG TAB ONE (11:13)
[2021-10-19] MEDS ORDERED: CLOPIDOGREL 75 MG TABLET ONE (11:13)
[2021-10-19] MEDS ORDERED: FOLIC ACID 5 MG/ML VIAL ONE (11:14)
[2021-10-19 11:18] LABS: Protime INR 1.06
[2021-10-19 11:28] LABS: Albumin 3.9 g/dL (3.4-5.0); Bilirubin Direct 0.2 mg/dL (0-0.2); Bilirubin Total 0.8 mg/dL (0.2-1.0); Potassium 4.1 mmol/L (3.5-5.1); Protein, Total 7.5 g/dL (6.4-8.2)
--- NOTE | 2021-10-19 11:58 | RAD REPORT ---
EXAM DESCRIPTION: CT - Head angio - 10/19/2021 11:38 am CLINICAL HISTORY: Neuro deficit, acute, stroke suspected TECHNIQUE: During dynamic enhancement using nonionic IV contrast, axial 1 millimeter thick images of the head were obtained. Sagittal and axial reconstruction images were generated using MIP technique and reviewed. All CT scans are performed using dose optimization technique as appropriate and may include automated exposure control or mA/KV adjustment according to patient size. FINDINGS: No aneurysm or vascular malformation identified. Major venous sinuses are patent. Right vertebral artery is dominant. Vertebrobasilar tortuosity is present. No basilar stenosis or dis section. Right posterior communicating artery is present. The posterior cerebral artery distribution show no significant finding. Internal carotid arteries show no significant findings. Left anterior cerebral artery is smaller than the right along its entire course. No stenosis, vasculitis or other significant finding in the bilat eral anterior cerebral artery distributions. Left middle cerebral artery unremarkable as well. There is truncation of the M1 segment right middle cerebral artery 5 mm from origin. A few enhancing vessels are seen in the superior aspect of the right frontal lobe and in the right parietal lobe like ly from collateralized anterior or posterior cerebral artery pathways. Truncation at this location sp aces additional areas of frontal and parietal lobe better risk for infarction. 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 Minimal enhancing vessels are seen in the right parietal lobe and superior right frontal lobe. M1 MCA occlusion places the remaining areas of middle cerebral artery distribution at risk for infarction.
--- NOTE | 2021-10-19 12:27 | EDPHYS ---
Physician Documentation [facility] Name: Abel Birch Age: 61 yrs Sex: Male : 1960 Arrival Date: 10/19/2021 Time: 09:25 Bed 4 Private MD: ED Physician Mode Gilman HPI: 10/19 09:56 This 61 yrs old Male presents to ER via Wheelchair with complaints of Unable to move pm1 arm. 09:56 The patient's problem is reported as weakness, in the left upper extremity, in the left pm1 lower extremity. Onset: The symptoms/episode began/occurred yesterday, at 08:00. Duration: The episode is continuous. Context: symptoms became apparent on October 18, 2021, occurred at home, occurred while the patient was eating breakfast. The symptoms are alleviated by nothing. The symptoms are aggravated by nothing. Associated signs and symptoms: Pertinent negatives: abdominal pain, chest pain, dizziness, headache, palpitations, vision changes. Severity of symptoms: in the emergency department the symptoms are unchanged Pain is currently a 0 / 10. Patient's baseline: Neuro: alert and fully oriented, Motor: no deficits, Ambulation: walks without assistance, The patient has a previous history of atrial fibrillation. The patient has not experienced similar symptoms in the past. The patient has not recently seen a physician, the patient's primary care provider is Dr. Tubbs. Historical: - Allergies: 09:48 PENICILLINS; vg1 - PSHx: 09:48 bilateral shoulder; left knee; vg1 - Immunization history:: Client reports having NOT received the Covid vaccine. - Social history:: Smoking status: Patient denies any tobacco usage or history of. ROS: 09:56 Constitutional: Negative for fever, chills, and weight loss, Eyes: Negative for injury, pm1 pain, redness, and discharge, Cardiovascular: Negative for chest pain, palpitations, and edema, Respiratory: Negative for shortness of breath, cough, wheezing, and pleuritic chest pain, Abdomen/GI: Negative for abdominal pain, nausea, vomiting, diarrhea, and constipation. 09:56 Skin: Negative for injury, rash, and discoloration. 09:56 Neuro: Positive for weakness, of the left arm, Negative for dizziness, headache, numbness. 09:56 All other systems are negative. Exam: 10:01 Constitutional: This is a well developed, well nourished patient who is awake, alert, pm1 and in no acute distress. Head/Face: Normocephalic, atraumatic. 10:01 Back: No spinal tenderness. No costovertebral tenderness. Full range of motion. Skin: Warm, dry with normal turgor. Normal color with no rashes, no lesions, and no evidence of cellulitis. 10:01 Eyes: Exam is negative for acute changes, Periorbital structures: no acute changes, Pupils: no acute changes, Extraocular movements: no acute changes, Conjunctiva: no acute changes, no injection, Sclera: no acute changes, icterus, is not appreciated. 10:01 ENT: Mouth: no acute changes, Lips: normal, moist, Oral mucosa: normal, pink and intact, moist. 10:01 Cardiovascular: Exam negative for acute changes, Rate: normal, Rhythm: regular, Pulses: no pulse deficits are appreciated, Heart sounds: normal, Edema: is not appreciated. 10:01 Respiratory: Exam negative for acute changes, respiratory distress, shortness of breath, Breath sounds: are clear throughout. 10:01 Abdomen/GI: Inspection: abdomen appears normal, Palpation: abdomen is soft and non-tender, in all quadrants. 10:01 Musculoskeletal/extremity: Circulation is intact in all extremities. Sensation intact. 10:01 Neuro: Orientation: is normal, Mentation: is normal, Motor: strength is 4/5 in the left leg and left ankle, unable to move left arm, mild facial droop present to left side of face, asymmetrical smile . 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 pm1 Patient previously without any movement to left arm. Patient is now able to bend his arm at the elbow when he could not previously on initial presentation, Change in NIHSS score from 6 to 4 due to left arm improvment. Vital Signs: 09:45 BP 100 / 80; Pulse 86; Resp 16; Temp 97.9; Pulse Ox 97% on R/A; Weight 90.72 kg; Height vg1 5 ft. 10 in. (177.80 cm); Pain 0/10; 10:00 BP 150 / 91; Pulse 70; Resp 16; Pulse Ox 99% ; ll1 11:15 BP 123 / 88; Pulse 64; Pulse Ox 99% ; ll1 12:00 BP 127 / 93; Pulse 68; Resp 16; Pulse Ox 100% ; ll1 12:45 BP 117 / 87; Pulse 74; Resp 17; Pulse Ox 100% ; ll1 13:26 BP 134 / 96; Pulse 65; Resp 17; Pulse Ox 100% ; ll1 14:30 BP 135 / 84; Pulse 72; Resp 17; Pulse Ox 100% ; ww 15:35 BP 131 / 89; Pulse 64; Resp 20; Pulse Ox 100% ; ww 16:30 BP 134 / 91; Pulse 77; Resp 16; Pulse Ox 100% ; ww 09:45 Body Mass Index 28.70 (90.72 kg, 177.80 cm) vg1 NIH Stroke Scale Scores: 09:55 NIHSS Score: 6 pm1 11:31 NIHSS Score: 6 ww 16:02 NIHSS Score: 4 pm1 Aurora Coma Score: 10:00 Eye Response: spontaneous(4). Verbal Response: oriented(5). Motor Response: obeys ww commands(6). Total: 15. 11:07 Eye Response: spontaneous(4). Verbal Response: oriented(5). Motor Response: obeys ww commands(6). Total: 15. Trauma Score (Adult): 14:30 Eye Response: spontaneous(1); Verbal Response: oriented(1); Motor Response: obeys ww commands(2); Systolic BP: > 89 mm Hg(4); Respiratory Rate: 10 to 29 per min(4); Aurora Score: 15; Trauma Score: 12 MDM: 09:40 Patient medically screened. pm1 10:00 Data reviewed: vital signs. Data interpreted: Pulse oximetry: on room air is 99 %. pm1 Interpretation: normal. 10:41 ED course: No CT head report received from radiologist to either myself or Dr. Andino. pm1 Phone system is currently not working. 10:50 Physician consultation: Domingo Novak MD regarding consult, patient's condition, ASA, pm1 Plavix, Folic Acid, Statin and CT angio. 12:08 Physician consultation: Domingo Novak MD regarding CT angio results, after a pm1 discussion of the case, a recommendation for transfer for higher level of care is made. 12:10 Counseling: I had a detailed discussion with the patient and/or guardian regarding: the pm1 historical points, exam findings, and any diagnostic results supporting the discharge/admit diagnosis, radiology results, the need to transfer to another facility. 13:08 Physician consultation: Hospitalist Mary regarding regarding transfer, patient's pm1 condition, and will see patient I discussed the case with Dr. Matthews, neurologist who will be consult. 10/19 09:54 Order name: Basic Metabolic Panel; Complete Time: 11: pm10/19 09:54 Order name: CBC with Diff; Complete Time: : pm10/19 09:54 Order name: Hepatic Function; Complete Time: : pm10/19 09:54 Order name: Magnesium; Complete Time: : pm10/19 09:54 Order name: Protime (+inr); Complete Time: :10/19 09:54 Order name: Ptt, Activated; Complete Time: 11:10/19 09:54 Order name: CT Stroke Brain w/o Contrast; Complete Time: 10:41 pm10/19 09:54 Order name: Stroke CXR 1 View; Complete Time: 11: pm10/19 10:08 Order name: COVID-19 SARS RT PCR (Document "Date of Onset" if Symptomatic); Complete pm1 Time: 13:10/19 10:54 Order name: CT Head Angio; Complete Time: 12:00 pm10/19 09:54 Order name: EKG; Complete Time: 09:55 pm10/19 09:54 Order name: Accucheck; Complete Time: 11:05 10/19 09:54 Order name: Cardiac monitoring; Complete Time: 10:00 pm10/19 09:54 Order name: EKG - Nurse/Tech; Complete Time: :59 pm10/19 09:54 Order name: IV Saline Lock; Complete Time: :59 pm10/19 09:54 Order name: Labs collected and sent; Complete Time: 09:59 pm10/19 09:54 Order name: NPO; Complete Time: 10:10 pm10/19 09:54 Order name: O2 Per Protocol; Complete Time: :59 pm1 10/19 09:54 Order name: O2 Sat Monitoring; Complete Time: 09:59 pm1 10/19 09:54 Order name: Stroke Swallow Screen; Complete Time: 10:10 pm1 10/19 10:08 Order name: Labs - recollect needed: ALL LABS; Complete Time: 11:04 em1 Administered Medications: 10:09 Drug: Aspirin 325 mg {Note: Aspirin 243 mg PO given, took 81 mg PO [employer].} Route: PO; ll1 10:59 Follow up: Response: No adverse reaction ll1 11:20 Drug: foLIC Acid 1 mg Route: IVPB; Site: right forearm; ll1 12:05 Follow up: Response: No adverse reaction; IV Status: Completed infusion; IV Intake: ll1 0.2ml 11:20 Drug: PlaVIX (clopidogrel) 75 mg Route: PO; ll1 12:05 Follow up: Response: No adverse reaction ll1 11:20 Drug: Atorvastatin 80 mg Route: PO; ll1 12:05 Follow up: Response: No adverse reaction ll1 Disposition Summary: 10/19/21 12:26 Transfer Ordered Transfer Location: [facility] pm1 Reason: Higher level of care pm1 Condition: Stable pm1 Problem: new pm1 Symptoms: are unchanged pm1 Accepting Physician: (10/19/21 17:59) ww Diagnosis - Cerebral infarction, unspecified pm1 Forms: - Medication Reconciliation Form pm1 - SBAR form pm1 NIH Stroke Scale - NIH Stroke Score Date: 10/19/2021 Time: 09:55 Total Score = 6 1a. Level of Consciousness (LOC) - 0(Alert) 1b. Level of Consciousness (LOC) (Month \\T\\ Age) - 0(Both) 1c. LOC Commands (Open \\T\\ Closes Eyes/Bindery Leadperson) - 0(Both) 2. Best Gaze (Lateral Gaze Paresis) - 0(Normal) 3. Visual Field Loss - 0(No visual loss) 4. Facial Palsy - 1(Minor Paralysis) 5a. Left Arm: Motor (10-second hold) - 4(No movement) 5b. Right Arm: Motor (10-second hold) - 0(No drift) 6a. Left Leg: Motor (5-second hold - always test supine) - 1(Drift) 6b. Right Leg: Motor (5-second hold - always test supine) - 0(No drift) 7. Limb Ataxia (finger/nose \\T\\ heel/ruelas - test with eyes open) - 0(Absent) 8. Sensory Loss (pinprick arms/legs/face) - 0(Normal) 9. Best Language: Aphasia (description/naming/reading) - 0(No aphasia) 10. Dysarthria (speech clarity - read or repeat words) - 0(Normal) 11. Extinction and Inattention (visual/tactile/auditory/spatial/personal) - 0(No abnormality) Initials: pm1 NIH Stroke Scale - NIH Stroke Score Date: 10/19/2021 Time: 11:31 Total Score = 6 1a. Level of Consciousness (LOC) - 0(Alert) 1b. Level of Consciousness (LOC) (Month \\T\\ Age) - 0(Both) 1c. LOC Commands (Open \\T\\ Closes Eyes/Bindery Leadperson) - 0(Both) 2. Best Gaze (Lateral Gaze Paresis) - 0(Normal) 3. Visual Field Loss - 0(No visual loss) 4. Facial Palsy - 1(Minor Paralysis) 5a. Left Arm: Motor (10-second hold) - 4(No movement) 5b. Right Arm: Motor (10-second hold) - 0(No drift) 6a. Left Leg: Motor (5-second hold - always test supine) - 1(Drift) 6b. Right Leg: Motor (5-second hold - always test supine) - 0(No drift) 7. Limb Ataxia (finger/nose \\T\\ heel/ruelas - test with eyes open) - 0(Absent) 8. Sensory Loss (pinprick arms/legs/face) - 0(Normal) 9. Best Language: Aphasia (description/naming/reading) - 0(No aphasia) 10. Dysarthria (speech clarity - read or repeat words) - 0(Normal) 11. Extinction and Inattention (visual/tactile/auditory/spatial/personal) - 0(No abnormality) Initials: ww NIH Stroke Scale - NIH Stroke Score Date: 10/19/2021 Time: 16:02 Total Score = 4 1a. Level of Consciousness (LOC) - 0(Alert) 1b. Level of Consciousness (LOC) (Month \\T\\ Age) - 0(Both) 1c. LOC Commands (Open \\T\\ Closes Eyes/Bindery Leadperson) - 0(Both) 2. Best Gaze (Lateral Gaze Paresis) - 0(Normal) 3. Visual Field Loss - 0(No visual loss) 4. Facial Palsy - 1(Minor Paralysis) 5a. Left Arm: Motor (10-second hold) - 2(Drift, some effort against gravity) 5b. Right Arm: Motor (10-second hold) - 0(No drift) 6a. Left Leg: Motor (5-second hold - always test supine) - 1(Drift) 6b. Right Leg: Motor (5-second hold - always test supine) - 0(No drift) 7. Limb Ataxia (finger/nose \\T\\ heel/ruelas - test with eyes open) - 0(Absent) 8. Sensory Loss (pinprick arms/legs/face) - 0(Normal) 9. Best Language: Aphasia (description/naming/reading) - 0(No aphasia) 10. Dysarthria (speech clarity - read or repeat words) - 0(Normal) 11. Extinction and Inattention (visual/tactile/auditory/spatial/personal) - 0(No abnormality) Initials: pm1 Signatures: Dispatcher [employer] EDMichael Gongora em1 Vasu Sanchez, MAYUR ENGINE BOSS pm1 Marii Cervantes RN RN vg1 Karmen Manley RN RN ll1 Rachna Bejarano RN RN ww Corrections: (The following items were deleted from the chart) 11:34 09:55 NIHSS Score: 5 pm1 pm1 15:36 15:28 Constitutional: This is a well developed, well nourished patient who is pm1 awake, alert, and in no acute distress. Head/Face: Normocephalic, atraumatic. pm1 15:36 15:28 Eyes: Exam is negative for acute changes, Periorbital structures: no pm1 acute changes, Pupils: no acute changes, Extraocular movements: no acute changes, Conjunctiva: no acute changes, no injection, Sclera: no acute changes, icterus, is not appreciated, pm1 15:36 15:28 ENT: Mouth: no acute changes, Lips: normal, moist, Oral mucosa: normal, pm1 pink and intact, moist, pm1 15:36 15:28 Cardiovascular: Exam negative for acute changes, Rate: normal, Rhythm: pm1 regular, Pulses: no pulse deficits are appreciated, Heart sounds: normal, Edema: is not appreciated, pm1 15:36 15:28 Respiratory: Exam negative for acute changes, respiratory distress, pm1 shortness of breath, Breath sounds: are clear throughout, pm1 15:36 15:28 Abdomen/GI: Inspection: abdomen appears normal, Palpation: abdomen is pm1 soft and non-tender, in all quadrants, pm1 15:36 15:28 Back: No spinal tenderness. No costovertebral tenderness. Full range of pm1 motion. Skin: Warm, dry with normal turgor. Normal color with no rashes, no lesions, and no evidence of cellulitis. pm1 15:36 15:28 Musculoskeletal/extremity: Circulation is intact in all extremities. pm1 Sensation intact. pm1 15:36 15:28 Neuro: Orientation: is normal, Mentation: is normal, Motor: strength is pm1 4/5 in the left leg and left ankle, unable to move left arm, mild facial droop present to left side of face, asymmetrical smile , pm1 17:59 12:26 MD pm1 ww
--- NOTE | 2021-10-19 12:27 | ER ---
Nurse's Notes [facility] Name: Abel Birch Age: 61 yrs Sex: Male : 1960 Arrival Date: 10/19/2021 Time: 09:25 Bed 4 Private MD: Diagnosis: Cerebral infarction, unspecified Presentation: 10/19 09:45 Chief complaint: Patient states: "Yesterday morning I went to try and eat breakfast and vg1 I couldn't sampler pickup it with my Left hand" Pt states numbness and weakness to Left hand; pt appears to be unable to lift Left arm and appears to have left sided facial droop. Coronavirus screen: Vaccine status: Patient reports being unvaccinated. Client denies travel out of the [place] in the last 14 days. Ebola Screen: Patient denies exposure to infectious person. Patient denies travel to an Ebola-affected area in the 21 days before illness onset. Initial Sepsis Screen: Does the patient meet any 2 criteria? No. Patient's initial sepsis screen is negative. Does the patient have a suspected source of infection? No. Patient's initial sepsis screen is negative. Risk Assessment: Do you want to hurt yourself or someone else? Patient reports no desire to harm self or others. Onset of symptoms was October 18, 2021. 09:45 Method Of Arrival: Wheelchair vg1 09:45 Acuity: HOMERO 2 vg1 Triage Assessment: 09:48 General: Appears uncomfortable, Behavior is calm, cooperative. Pain: Denies pain. EENT: vg1 No signs and/or symptoms were reported regarding the EENT system. Neuro: Marcus Agitation-Sedation Scale (RASS): 0 - Alert and Calm Level of Consciousness is awake, alert, obeys commands, Oriented to person, place, time, situation, Hot Packer are weak on left Weakness in left arm(s) Speech is normal, Facial droop on left. Cardiovascular: Patient's skin is warm and dry. Respiratory: Airway is patent Respiratory effort is even, unlabored. GI: No signs and/or symptoms were reported involving the gastrointestinal system. : No signs and/or symptoms were reported regarding the genitourinary system. Derm: Skin is intact, is healthy with good turgor. Musculoskeletal: Range of motion: limited in left arm and left leg. Historical: - Allergies: 09:48 PENICILLINS; vg1 - PSHx: 09:48 bilateral shoulder; left knee; vg1 - Immunization history:: Client reports having NOT received the Covid vaccine. - Social history:: Smoking status: Patient denies any tobacco usage or history of. Screenin:00 VAN Screening: Arm Drift: Severe drift. Aphasia: No aphasia noted. Neglect: No neglect ww noted. 10:10 Abuse screen: Denies threats or abuse. Nutritional screening: No deficits noted. ll1 Tuberculosis screening: No symptoms or risk factors identified. Patient has been NPO before screening. The patient is alert, able to follow commands. The patient does not exhibit slurred or garbled speech The patient is not exhibiting difficulty speaking. The patient does not exhibit difficulty understanding words. The patient is able to swallow own secretions with no drooling or need for suction. Patient tolerated one teaspoon of water. No drooling, immediate coughing, gurgling, or clearing of the throat was noted. The patient tolerated 90mL of water. No drooling, immediate coughing, gurgling, or clearing of the throat was noted. The patient passed the bedside swallow screening. Oral medications may be given as ordered. Contact Physician for further diet orders. 10:11 Fall Risk IV access (20 points). Gait- Impaired (20 pts.). Total Bland Fall Scale ll1 indicates Low Risk Score (25-44 pts). Fall prevention measures have been instituted. Side Rails Up X 2 Placed close to Nursing Station Frequent Obs/Assesments occuring Family Present and informed to notify staff if they need to leave bedside As available Patient and Family Educated on Fall Prevention Program and strategies. Assessment: 10:00 General: Appears in no apparent distress. Neuro: Level of Consciousness is awake, ww alert, obeys commands, Oriented to person, place, time, situation, Hot Packer are weak on left Weakness in left hand(s) leg(s) Facial droop on left, Intact. Cardiovascular: Capillary refill < 3 seconds Patient's skin is warm and dry. Pulses are palpable in right radial artery and left radial artery Rhythm is Chest pain is denied. Respiratory: Airway is patent Respiratory effort is even, unlabored, Respiratory pattern is regular, symmetrical. GI: No signs and/or symptoms were reported involving the gastrointestinal system. : No signs and/or symptoms were reported regarding the genitourinary system. Derm: Skin is intact, is healthy with good turgor. 10:11 Reassessment: No changes from previously documented assessment. Patient and/or family ll1 updated on plan of care and expected duration. Pain level reassessed. Patient is alert, oriented x 3, equal unlabored respirations, skin warm/dry/pink. 10:30 Reassessment: Patient appears in no apparent distress at this time. No changes from ww previously documented assessment. Patient and/or family updated on plan of care and expected duration. Pain level reassessed. Patient is alert, oriented x 3, equal unlabored respirations, skin warm/dry/pink. 11:07 Reassessment: Patient appears in no apparent distress at this time. No changes from ww previously documented assessment. Patient and/or family updated on plan of care and expected duration. Pain level reassessed. Patient is alert, oriented x 3, equal unlabored respirations, skin warm/dry/pink. 12:05 Reassessment: No changes from previously documented assessment. Patient and/or family ll1 updated on plan of care and expected duration. Pain level reassessed. Patient is alert, oriented x 3, equal unlabored respirations, skin warm/dry/pink. 13:00 Reassessment: No changes from previously documented assessment. Patient and/or family ll1 updated on plan of care and expected duration. Pain level reassessed. Patient is alert, oriented x 3, equal unlabored respirations, skin warm/dry/pink. 14:15 Reassessment: Patient appears in no apparent distress at this time. No changes from ww previously documented assessment. Patient and/or family updated on plan of care and expected duration. Pain level reassessed. Patient is alert, oriented x 3, equal unlabored respirations, skin warm/dry/pink. assisted with urinal, repositioned in bed, updated with transfer update. 15:34 Reassessment: Patient appears in no apparent distress at this time. No changes from ww previously documented assessment. Patient and/or family updated on plan of care and expected duration. Pain level reassessed. Patient is alert, oriented x 3, equal unlabored respirations, skin warm/dry/pink. Patient states symptoms have not improved. 16:29 Reassessment: report given to DINH Cummings at [facility]. ww 16:59 Reassessment: Patient appears in no apparent distress at this time. Patient and/or ww family updated on plan of care and expected duration. Pain level reassessed. Patient is alert, oriented x 3, equal unlabored respirations, skin warm/dry/pink. speech is improving and patient now able to lift left arm but still with weakness Patient states feeling better. Vital Signs: 09:45 BP 100 / 80; Pulse 86; Resp 16; Temp 97.9; Pulse Ox 97% on R/A; Weight 90.72 kg; Height vg1 5 ft. 10 in. (177.80 cm); Pain 0/10; 10:00 BP 150 / 91; Pulse 70; Resp 16; Pulse Ox 99% ; ll1 11:15 BP 123 / 88; Pulse 64; Pulse Ox 99% ; ll1 12:00 BP 127 / 93; Pulse 68; Resp 16; Pulse Ox 100% ; ll1 12:45 BP 117 / 87; Pulse 74; Resp 17; Pulse Ox 100% ; ll1 13:26 BP 134 / 96; Pulse 65; Resp 17; Pulse Ox 100% ; ll1 14:30 BP 135 / 84; Pulse 72; Resp 17; Pulse Ox 100% ; ww 15:35 BP 131 / 89; Pulse 64; Resp 20; Pulse Ox 100% ; ww 16:30 BP 134 / 91; Pulse 77; Resp 16; Pulse Ox 100% ; ww 09:45 Body Mass Index 28.70 (90.72 kg, 177.80 cm) vg1 Keshia Coma Score: 10:00 Eye Response: spontaneous(4). Verbal Response: oriented(5). Motor Response: obeys commands(6). Total: 15. 11:07 Eye Response: spontaneous(4). Verbal Response: oriented(5). Motor Response: obeys commands(6). Total: 15. Trauma Score (Adult): 14:30 Eye Response: spontaneous(1); Verbal Response: oriented(1); Motor Response: obeys commands(2); Systolic BP: > 89 mm Hg(4); Respiratory Rate: 10 to 29 per min(4); [place] Score: 15; Trauma Score: 12 NIH Stroke Scale Scores: 09:55 NIHSS Score: 6 pm1 11:31 NIHSS Score: 6 ww 16:02 NIHSS Score: 4 pm1 ED Course: :25 Patient arrived in ED. mr 09:40 Laura Vasu, MOLDING AND TRIM INSTALLER is PHCP. pm1 09:40 Mode Gilman MD is Attending Physician. pm1 09:40 Arm band placed on Patient placed in an exam room, on a stretcher. ll1 09:41 Karmen Manley, DINH is Primary Nurse. ll1 09:46 Initial lab(s) drawn, by me, sent to lab. Inserted saline lock: 20 gauge in right dh3 forearm, using aseptic technique. Blood collected. 09:48 Triage completed. vg1 09:48 EKG completed in triage. Results shown to MD. vg1 10:11 Patient has correct armband on for positive identification. Bed in low position. Call ll1 light in reach. Side rails up X2. Client placed on continuous cardiac and pulse oximetry monitoring. NIBP monitoring applied. 10:22 CT Stroke Brain w/o Contrast In Process Unspecified. EDMS 10:47 Stroke CXR 1 View In Process Unspecified. EDMS 11:08 Lab(s) recollected, by me, sent to lab. 3 11:39 CT Head Angio In Process Unspecified. EDMS 12:17 Transfer initiated with [facility]. em1 12:46 recruiter coordinator Stuart advised us that a bed assignment could take 2 to 3 hours, we em1 acknowledged. 15:34 Rachna Bejarano, RN is Primary Nurse. ww 17:02 No provider procedures requiring assistance completed. Patient transferred, IV remains ww in place. Administered Medications: 10:09 Drug: Aspirin 325 mg {Note: Aspirin 243 mg PO given, took 81 mg PO DIAMOND MERCHANT.} Route: PO; ll1 10:59 Follow up: Response: No adverse reaction ll1 11:20 Drug: foLIC Acid 1 mg Route: IVPB; Site: right forearm; ll1 12:05 Follow up: Response: No adverse reaction; IV Status: Completed infusion; IV Intake: ll1 0.2ml 11:20 Drug: PlaVIX (clopidogrel) 75 mg Route: PO; ll1 12:05 Follow up: Response: No adverse reaction ll1 11:20 Drug: Atorvastatin 80 mg Route: PO; ll1 12:05 Follow up: Response: No adverse reaction ll1 Medication: 10:11 VIS not applicable for this client. ll1 Intake: 12:05 IV: 0ml; Total: 0ml. ll1 Outcome: 12:26 ER care complete, transfer ordered by . pm1 17:02 Transferred by ground EMS to [facility]. 17:02 Condition: stable 17:02 Instructed on the need for transfer. 17:59 Patient left the ED. NIH Stroke Scale - NIH Stroke Score Date: 10/19/2021 Time: 09:55 Total Score = 6 1a. Level of Consciousness (LOC) - 0(Alert) 1b. Level of Consciousness (LOC) (Month \\T\\ Age) - 0(Both) 1c. LOC Commands (Open \\T\\ Closes Eyes/Metallurgical Engineering Technician) - 0(Both) 2. Best Gaze (Lateral Gaze Paresis) - 0(Normal) 3. Visual Field Loss - 0(No visual loss) 4. Facial Palsy - 1(Minor Paralysis) 5a. Left Arm: Motor (10-second hold) - 4(No movement) 5b. Right Arm: Motor (10-second hold) - 0(No drift) 6a. Left Leg: Motor (5-second hold - always test supine) - 1(Drift) 6b. Right Leg: Motor (5-second hold - always test supine) - 0(No drift) 7. Limb Ataxia (finger/nose \\T\\ heel/ruelas - test with eyes open) - 0(Absent) 8. Sensory Loss (pinprick arms/legs/face) - 0(Normal) 9. Best Language: Aphasia (description/naming/reading) - 0(No aphasia) 10. Dysarthria (speech clarity - read or repeat words) - 0(Normal) 11. Extinction and Inattention (visual/tactile/auditory/spatial/personal) - 0(No abnormality) Initials: pm1 NIH Stroke Scale - NIH Stroke Score Date: 10/19/2021 Time: 11:31 Total Score = 6 1a. Level of Consciousness (LOC) - 0(Alert) 1b. Level of Consciousness (LOC) (Month \\T\\ Age) - 0(Both) 1c. LOC Commands (Open \\T\\ Closes Eyes/Metallurgical Engineering Technician) - 0(Both) 2. Best Gaze (Lateral Gaze Paresis) - 0(Normal) 3. Visual Field Loss - 0(No visual loss) 4. Facial Palsy - 1(Minor Paralysis) 5a. Left Arm: Motor (10-second hold) - 4(No movement) 5b. Right Arm: Motor (10-second hold) - 0(No drift) 6a. Left Leg: Motor (5-second hold - always test supine) - 1(Drift) 6b. Right Leg: Motor (5-second hold - always test supine) - 0(No drift) 7. Limb Ataxia (finger/nose \\T\\ heel/ruelas - test with eyes open) - 0(Absent) 8. Sensory Loss (pinprick arms/legs/face) - 0(Normal) 9. Best Language: Aphasia (description/naming/reading) - 0(No aphasia) 10. Dysarthria (speech clarity - read or repeat words) - 0(Normal) 11. Extinction and Inattention (visual/tactile/auditory/spatial/personal) - 0(No abnormality) Initials: NIH Stroke Scale - NIH Stroke Score Date: 10/19/2021 Time: 16:02 Total Score = 4 1a. Level of Consciousness (LOC) - 0(Alert) 1b. Level of Consciousness (LOC) (Month \\T\\ Age) - 0(Both) 1c. LOC Commands (Open \\T\\ Closes Eyes/Metallurgical Engineering Technician) - 0(Both) 2. Best Gaze (Lateral Gaze Paresis) - 0(Normal) 3. Visual Field Loss - 0(No visual loss) 4. Facial Palsy - 1(Minor Paralysis) 5a. Left Arm: Motor (10-second hold) - 2(Drift, some effort against gravity) 5b. Right Arm: Motor (10-second hold) - 0(No drift) 6a. Left Leg: Motor (5-second hold - always test supine) - 1(Drift) 6b. Right Leg: Motor (5-second hold - always test supine) - 0(No drift) 7. Limb Ataxia (finger/nose \\T\\ heel/ruelas - test with eyes open) - 0(Absent) 8. Sensory Loss (pinprick arms/legs/face) - 0(Normal) 9. Best Language: Aphasia (description/naming/reading) - 0(No aphasia) 10. Dysarthria (speech clarity - read or repeat words) - 0(Normal) 11. Extinction and Inattention (visual/tactile/auditory/spatial/personal) - 0(No abnormality) Initials: pm1 Signatures: Dispatcher [employer] [place] Leon, Yana mr Nik, Michael em1 Vasu Sanchez, MOLDING AND TRIM INSTALLER MOLDING AND TRIM INSTALLER pm1 Kerrie Hall 3 Marii Cervantes, RN RN vg1 Karmen Manley RN RN ll1 Rachna Bejarano RN RN ww Corrections: (The following items were deleted from the chart) 11:33 10:00 NIHSS Score: 7 jess mercado
[2021-10-19 18:10] VITALS: TEMP 97.9
[2021-10-19 18:15] VITALS: O2SAT 100
[2021-10-19 18:23] VITALS: BP 134/91
--- NOTE | 2021-10-20 11:26 | EKG ---
Test Date: 2021-10-19 Test Time: 09:44:32 Technical Aid: MELIDA MEASUREMENT RESULTS: Intervals: Rate: 72 MI: 152 QRSD: 78 QT: 384 QTc: 420 [place]: P: 35 MI: 152 QRS: -1 T: 36 INTERPRETIVE STATEMENTS: Sinus rhythm with premature atrial complexes Otherwise normal ECG Compared to ECG 10/19/2021 09:44:00 Atrial premature complex(es) now present Sinus arrhythmia no longer present Electronically Signed On 10-20-21 11:23:31 CDT by Kit Daniels
--- NOTE | 2021-10-20 11:26 | EKG ---
Test Date: 2021-10-19 Test Time: 09:44:00 [employer] Treat Furnace Operator: MELIDA MEASUREMENT RESULTS: Intervals: Rate: 75 DC: 154 QRSD: 78 QT: 396 QTc: 442 [place]: P: 42 DC: 154 QRS: 2 T: 40 INTERPRETIVE STATEMENTS: Normal sinus rhythm with sinus arrhythmia Normal ECG Compared to ECG 03/28/2021 08:32:02 Sinus bradycardia no longer present Electronically Signed On 10-20-21 11:23:33 CDT by Kit Daniels
== END 2021-10-19 17:59 | disposition short-term general hospital (02) ==
LOC: ER 09:23
DX: I63.9 Cerebral infarction, unspecified (principal); R29.706 NIHSS score 6; Z88.0 Allergy status to penicillin; Z20.822 Contact with and (suspected) exposure to COVID-19
CPT/HCPCS: 96365; 93005 ×2; 85025; 80048; 36415; 83735; 85610; 80076; 85730; 70496; 70450; 71045; 99285; U0003; Q9967

== ENCOUNTER 2021-10-22 15:31 | Inpatient (IN) | payer OTHER ==
--- NOTE | 2021-10-22 12:19 | R.PREADM ---
PRE-ADMISSION SCREENING FORM SCREENING DATE AND TIME 10/22/2021 08:56 (CDT) ANTICIPATED REHAB ADMISSION DATE 10/24/2021 REFERRING FACILITY [facility] REFERRAL DATE AND TIME 10/22/2021 08:56 (CDT) ACUTE ADMIT DATE 10/19/2021 Previous Rehabilitation(s): No. 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 Domingo Novak M.D. MR# [id number] NAME AZAM TEJEDA ADDRESS [address] [place] [address] DATE OF 1960 AGE 61 SSN# [id number] GENDER male MARITAL STATUS Single (Never ) RACE unknown race ADMIT FROM 02 - [facility] PRE-HOSPITAL LIVING SETTING 01 - Home (private home/apt. board/care, assisted living, half-way, transitional living) HOME TYPE AND DETAILS Type of home: single family house # of levels in the residence: 2 # of steps within the residence: unknown # of steps to enter the residence: 1 PRE-HOSPITAL LIVING WITH Alone FAMILY SUPPORT Yes FAMILY SUPPORT DETAILS Family and friends will work out schedule to assist pt in the home upon discharge PRIMARY FAMILY CONTACT NAME Yana Tejeda PHONE PRIMARY FAMILY CONTACT ON ADM.? no IS PRIMARY FAMILY CONTACT AUTH. REP.? no 1ST EMERGENCY CONTACT Yana Tejeda PHONE 1ST CONTACT ON ADM. no IS 1ST CONTACT AUTH. REP.? no PHONE 2ND CONTACT ON ADM.? no PATIENT EMPLOYMENT STATUS Employed Outside [employer] PAYOR INFORMATION: 1ST PAYOR NAME Kris 1ST PAYOR PHONE 1ST PAYOR INJURY/ILLNESS DUE TO ACCIDENT? No ANOTHER LIBERTARIAN RESPONSIBLE? 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) ONSET DATE 10/18/2021 REHAB IMPAIRMENT CATEGORY (MICHAEL): 01 Stroke (STR) MEETS 60% rule AFFECTED EXTREMITIES: LLE, and LUE PRIMARY DIAGNOSIS-RELATED SURGERIES: None INTERVENTIONS: - Stroke Provide aggressive PT, OT and Speech to improve pt level of function Assess pt neuro status regularly - Permissive Hypertension Monitor pt b/p regularly Administer medications when indicated by pt BP per MD order and monitor effectivness - Afib Administer prescribed anticoagulants and monitor effectiveness Vitals will be monitored regularly Monitor pt cardiac and respiratory status - DVT Administer medications as prescribed per MD Reposition pt regularly RISK FOR COMPLICATIONS: - DVT Active and Passive ROM exercises Assist patient with frequent position changes Elevate BLE - Skin Breakdown Encourage ambulation as tolerated Repositioning q 2 hours Use of pillows or foam wedges while in bed - Falls Maintain call light within patient reach for easy access to nursing assistance Provide assistance getting out of bed and with ambulation Provide assistive devices - Pain Anticipate the need for pain medication for optimal pain managment Administer prescribed pain medication as needed Education on relaxation and deep breathing techniques - Stroke Monitor and maintain patient pain level Monitor patient blood pressure SUMMARY OF ACUTE HOSPITALIZATION: On 10/18/2021 Pt. presented to [facility] with sudden onset of left-side weakness. Pt. is a 61 yo male of unknown race. 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 His impairment category is Stroke 01 - Left Body (Right Brain) (01.1). Pre-morbidly, Pt. was independent/mod-I in Locomotion and Self-Care; and he had good Balance, Communi cation, Endurance, Safety Awareness, and Transfers Control. Currently, he has deficits of Locomotion, Balance, Self-Care, Communication, Endurance, and Safety Aw areness. Pt. is now referred to [facility] for acute in-patient rehabilitation in order to maximize patient's functional independence in activities of daily living, strength, ROM, and mobi lity. Patient has realistic goal of being discharged at assistance level 6-Christy to reside at Home with Pt self. PAST MEDICAL HISTORY Hypertension Atrial Fibrillation PAST SURGICAL HISTORY: None MEDICATION ALLERGIES: No Known Drug Allergies (NKDA) ENVIRONMENTAL ALLERGIES: - Substance Allergies None Known - Other Allergies None Known CODE STATUS: Full code WEIGHT/HEIGHT/BMI: WEIGHT 199 lbs HEIGHT 5' 10" BMI 28.6 DIET: - Diet Type Regular - Diet - Solid Texture Regular - Diet - Liquid Texture Regular - Tube Feed N/A none REVIEW OF SYSTEMS: - Gen Alert and awake Lying in bed No apparent distress Oriented to: person, time, and place - Vital Signs Temperature: 98.2 F SBP/DBP: 141/77 Pulse: 66 Resp: 18 Vital signs stable, afebrile - CVS RRR VITAL SIGNS Temperature: 98.2 F SBP/DBP: 141/77 Pulse: 66 Resp: 18 Vital signs stable, afebrile Date 10/21/2021 MEDICATIONS/TREATMENT: Other- See attached MAR (Medication Administration Record). CURRENT SPHINCTER CONTROL: Pre-hospital bladder status: unspecified # of bladder accidents in the last 7 days prior to screenin Pre-hospital bowel status: unspecified # of bowel accidents in the last 7 days prior to screenin Last Bowel Movement Date: 10/22/2021 CURRENT LOCOMOTION STATUS: distance walked 30 feet distance walked 70 feet DETAILED CURRENT FUNCTIONAL STATUS: - Bladder accident frequency: 7-Ind - No accidents in the past 7 days - Bowel accident frequency: 7-Ind - No accidents in the past 7 days - Walking score based on distance walked: 0(N/A) score based on distance walked: 1(<=50ft) score based on distance walked: 2(50-149ft) - Wheelchair score based on distance traveled: 0(N/A) QI SCORES: - Self-Care A. Eating 04-Supervision or touching assistance B. Oral hygiene 04-Supervision or touching assistance C. Toileting hygiene 04-Supervision or touching assistance E. Shower/bathe self 03-Partial/moderate assistance F. Upper body dressing 09-Not applicable G. Lower body dressing 01-Dependent H. Putting on/taking off footwear 01-Dependent - Mobility A. Roll left and right 88-Not attempted due to medical condition or safety concerns B. Sit to lying 04-Supervision or touching assistance C. Lying to sitting on side of bed 88-Not attempted due to medical condition or safety concerns D. Sit to stand 04-Supervision or touching assistance E. Chair/rpu-cd-iroas transfer 03-Partial/moderate assistance F. Toilet transfer 03-Partial/moderate assistance G. Car transfer 03-Partial/moderate assistance I. Walk 10 feet 03-Partial/moderate assistance J. Walk 50 feet with two turns 03-Partial/moderate assistance K. Walk 150 feet 88-Not attempted due to medical condition or safety concerns L. Walking 10 feet on uneven surfaces 88-Not attempted due to medical condition or safety concerns M. 1 step (curb) 88-Not attempted due to medical condition or safety concerns N. 4 steps 88-Not attempted due to medical condition or safety concerns O. 12 steps 88-Not attempted due to medical condition or safety concerns P. Picking up object 88-Not attempted due to medical condition or safety concerns R. Wheel 50 feet with two turns 09-Not applicable S. Wheel 150 feet 09-Not applicable - Bladder and Bowel Bladder continence 0-Always continent Bowel continence 0-Always continent - Endurance Fair - Balance Fair - Safety Awareness Fair CURRENT FUNC. DEFICITS: Self-Care, Endurance, Balance, Safety Awareness, and Mobility CURRENT / PREVIOUS ASSISTIVE DEVICES: Straight Cane HISTORY OF FALLS. HAS THE PATIENT HAD TWO OR MORE FALLS IN THE PAST YEAR OR ANY FALL WITH INJURY IN T HE PAST YEAR?: No PRIOR SURGERY. DID THE PATIENT HAVE MAJOR SURGERY DURING THE 100 DAYS PRIOR TO ADMISSION?: No THERAPY NOTES FROM ACUTE CARE: [id number] ched. SPECIAL NEEDS: - Safety Concerns Skin breakdown and Fall precautions needed due to skin breakdown risk, Fall history, Poor balance, an d Risk of injury - IV inserted on unknown - Fall Precautions Due to poor balance - Communication Slurred/Impaired speech, slightly dysarthric PRECAUTIONS: - Fall Precaution Bed alarm TABS alarm Wheel chair alarm - DVT Risk due to restricted mobility and age - Cardiac Precaution Monitor blood pressure, heart rate, lower extremity edema, notify MD for shortness of breath or chest pain - Skin Breakdown Risk due to restricted mobility and age PATIENT NEEDS ACTIVE AND ONGOING THERAPEUTIC INTERVENTION OF MULTIPLE THERAPY DISCIPLINES, INCLUDING: - Dietary and Nutrition Adequate Nutrition. Nutritional Education. Nutritional Supplements. - Occupational Therapy Cognitive Retraining. Patient needs Occupational Therapy for a daily minimum of 1.5 hours at least 5 out of 7 days, to improve Activities of Daily Living, including: Eating, Grooming, Bathing, Dressing, Toileting, Toilet Transfers, Community Reintegration, Higher functional activities, Adaptive Equipme nt, Splinting, Household Tasks, and Other activities as determined. Visual Perceptual Training. - Speech Therapy Expressive Language Skills. Memory Strategies. Patient needs Speech Therapy for a daily minimum of 1. 5 hours at least 5 out of 7 days, to improve: Cognition, Language Skills, and Compensatory Strategies . Receptive Language Skills. Speech Intelligibility Training. - Physical Therapy Patient needs Physical Therapy for a daily minimum of 1.5 hours at least 5 out of 7 days, to improve: Mobility, Strengthening, Transfers, Stretching, ROM, Endurance, Ability to manage stairs, Gait, and Balance. PATIENT NEEDS CLOSE MEDICAL SUPERVISION BY A REHABILITATION PHYSICIAN FOR: Coordination of Treatment Team Bowel and Bladder Management DVT Management Medical and Co-Morbidity Management Pain Management PATIENT REQUIRES 24X7 REHAB NURSING FOR MEDICAL AND FUNCTIONAL MGT. OF THE FOLLOWING DEFICITS: Patient requires 24x7 Rehabilitation Nursing for: Pain Issues, Identifying and preventing risk factor s, Monitoring and reporting current medical conditions, Assisting with ambulation and transfer, Esvin ting with all ADL-s, Teaching patients about disease process and medications, Family teaching, Provid ing safe environment, Bowel and Bladder Issues, Skin Integrity, and Medication Management PATIENT REQUIRES INTENSIVE, COORDINATED INTERDISCIPLINARY APPROACH TO REHAB: Patient needs Dietary and Nutrition Services for: Adequate Nutrition, Nutritional Supplements, and Nu tritional Education Patient needs Welding Production Supervisor and/or Case Management for: Discharge Planning, Arranging Home Equipmen t or Services, and Family Interventions PATIENT REHAB POTENTIAL: Guero TEJEDA is able and expected to receive 3 hours of individualized therapy daily on at least 5 of every 7 days Guero TEJEDA's prognosis for significant practical improvement within a reasonable period of time jordan ears Good Expected level of measurable improvement will be of a practical value to Guero TEJEDA's functional ca pacity or adaptations to impairments Has a viable Discharge Plan Medically appropriate; condition is sufficiently stable to participate in intensive rehab program DISCHARGE PLAN: - Estimated Length of Stay (days) 17. - Consensus on plan Discharge plan has been discussed with primary caregiver. Patient/Family is in agreement with the vale n. Primary caregiver is in agreement with the plan. - Patient/Family Goals Return home independently. - Potential barriers to discharge Any lines must be removed or patient/caregiver needs to be educated on line care. - Planned Living Setting Upon Discharge Home, to live alone. Transitional Living. Primary caregiver: Pt self. RECOMMENDED CARE LEVEL: IRF RECOMMENDATION DETAILS: Recommended Admission to Comprehensive Rehabilitation Program to Increase Functional [place] SCREENER'S COMPLETENESS CONFIRMATION: - Screening Confirmation The patient data collection on this preadmission screening form is finished PHYSICIANS REVIEW AND ADMISSION DETERMINATION Admit - Based on my review of the Pre-Admission Screening results, in my medical judgment and experie nce, I concur with the findings and recommend admission to [facility], as this patient requires an IRF level of care. SIGNATURE PANEL: Clinical Liaison - [electronically] signed by Lindsay Ward on 10/22/2021 at 12:06 (CDT) Physician Reviewer - [electronically] signed by Dr. Domingo Novak M.D. on 10/22/2021 at 12:18 (CDT )
--- OUTSIDE RECORDS SUMMARY | 2021-10-22 20:52 | XMS REPORT | Continuity of Care Document ---
:1960 Author Organization [facility] t Address [address] [place] [address] Care Team Providers Name Role Phone ALENA KOWALSKI Attending Clinician Unavailable CEE Attending Clinician Unavailable Hi CONTRERAS, L Attending Clinician SAUNDRA Admitting Clinician Unavailable Payers Payer Name Policy Type Policy Number Effective Date Expiration Date S brenna [employer] O POS [id number] 2021 00:00:00 QPOS Problems Condition Condition Condition Status Onset Resolution Last Treating Co mments Source Name Details Category Date Date Treatment Clinician Date Left Left Disease Active [facility] shoulder shoulder 3-14 ity of pain pain 00:00: [place] [address] [facility] [place] Allergies, Adverse Reactions, Alerts Allergy Allergy Status Severity Reaction(s) Onset Inactive Treating Comm ents Source Name Type Date Date Clinician Penicill Propensi Active Rash Univer s ins ty to 3-14 ity of adverse 00:00: [place] reaction Medical s Branch NO KNOWN Allergy Active [facility] Social History Social Habit Start Date Stop Date Quantity Comments Source Alcohol intake [facility] Sex Assigned At [facility] Smoking Status Start Date Stop Date Source Never smoker [facility] Medications Ordered Filled Start Stop Current Ordering Indication Dosage Frequency Signature Comments Components Source Medication Medication Date Date Medication? Clinician (SIG) Name Name diclofenac Yes [id number] 75mg Take 1 U nivers 75 mg EC 7-26 tablet by ity of tablet 00:00: mouth 2 [place] 00 (two) Medical times Branch daily with meals. diclofenac Yes [id number] 75mg Take 1 U nivers 75 mg EC 7-26 tablet by ity of tablet 00:00: mouth 2 00 (two) Medical times Branch daily with meals. acetaminoph 2015-05 Yes TAKE 1 TO U nivers en-codeine 1-30 2 TABLETS ity of (TYLENOL 00:00: BY MOUTH [place] #3) 300-30 00 EVERY 6 Medica l mg tablet HOURS Branch NEEDED FOR PAIN acetaminoph 2015-05 Yes TAKE 1 TO U nivers en-codeine 1-30 2 TABLETS ity of (TYLENOL 00:00: BY MOUTH [place] #3) 300-30 00 EVERY 6 Medica l mg tablet HOURS Branch NEEDED FOR PAIN Vital Signs Vital Name Observation Time Observation Value Comments Source WEIGHT 2021-10-19 20:08:00 90.402 kg HEIGHT 2021-10-19 20:08:00 177.8 cm WEIGHT 2021-10-19 20:08:00 90.402 kg HEIGHT 2021-10-19 20:08:00 177.8 cm Systolic blood 2018-12-23 13:53:00 114 mm[Hg] [facility]iver [facility] Diastolic blood 2018-12-23 13:53:00 76 [facility]Hg[facility] 2018-12-23 13:53:00 94 /min [facility] Respiratory rate 2018-12-23 13:53:00 18 /[facility] height 2018-12-23 13:53:00 177.8 cm [facility] Body weight 2018-12-23 13:53:00 97.523 kg [facility] BMI 2018-12-23 13:53:00 30.85 kg/m2 [facility] Procedures This patient has no known procedures. Encounters Start End Encounter Admission Attending Care Care Encounter Source Date/Time Date/Time Type Type Clinicians Facility Department ID 2021-10-19 2021-10-22 Inpatient ER VALORIE KOWALSKI Neurology [id number] VAL[place]IE 19:12:00 17:43:00 [facility] 2018-12-23 2018-12-23 Office SOLOMON Do [id number] [facility] 08:44:48 09:35:46 Visit [facility] [id number] it y of Surgical [id number] Leo as Specialti [id number] Ma dical es [address] [place] Results Test Description Test Time Test Comments Results Result Comments Source SARS-COV2/RT-PCR ([facility]) 2021-10-22 14:12:05 Test Item Value Reference Range Interpretation Comme nts SARS-COV2/RT-PCR (test code = Negative Negative The SARS-CoV-2 target nucleic [id number]) acids are not d etected in this specimen. Nega tive results do not preclude SA RS-CoV-2 infection and s hould not be used as the sole bas is for patient management deci sions. Negative results must be combined with clinical observ ations, patient history, and ep idemiological information. A false negative result may occu r if a specimen is improperly c ollected, transported or handled. This SARS CoV-2 test is a rapid, real-time RT-PC R test intended for the qualita tive detection of nucleic acid fr om SARS-CoV-2 in a nasopharyngea l swab specimen collected from individuals suspected of CO VID-19 by their healthcare prov ider. This test has been authorized by FDA under an EUA for use by authorized laboratories. This test is only authorized for the duration of the declaration that circumstances exist justifying the authorization of emergency use of in vitro diagnostic tests for detection and/or diagnosis of COVID-19 under Section 564(b)(1) of the Federal Food, Drug and Cosmetic Act, 21 U.S.C. 360bbb- 3(b)(1), unless the authorization is terminated or revoked sooner. Fact Sheet for Healthcare Providers: https://www.[employer]/Documents/Xpert%20Xpress%20SARS%20CoV-2/Fact%20Sheets/017-3712%20SARS-COV -2%20HEALTHCARE%20PROVIDERS%20FACT%20SHEET.pdf Fact Sheet for Healthcare Patients: https://www.[employer]/Documents/Xpert %20Xpress%20SARS%20CoV-2/Fact%20Sheets/288-3801%64AYSU-FMV-9%20PATIENT%20FACT%20 SHEET.pdfBASIC METABOLIC [id number] 05:32:28 Test Item Value Reference Range Interpretation Comments SODIUM (BEAKER) 140 meq/L 136-145 (test code = 381) POTASSIUM (BEAKER) 3.7 meq/L 3.5-5.1 (test code = 379) CHLORIDE (BEAKER) 104 meq/L 98-107 (test code = 382) CO2 (BEAKER) (test 27 meq/L 22-29 code = 355) BLOOD UREA NITROGEN 14 mg/dL 7-21 (BEAKER) (test code = 354) CREATININE (BEAKER) 1.05 mg/dL 0.57-1.25 (test code = 358) GLUCOSE RANDOM 109 mg/dL 70-105 H (BEAKER) (test code = 652) CALCIUM (BEAKER) 9.4 mg/dL 8.4-10.2 (test code = 697) EGFR (BEAKER) (test 88 mL/min/1.73 ESTIMA MILA GFR IS code = 1092) sq m NOT ACCURATE CREATININE CLEARANCE IN PREDICTING GLOMERULAR FILTRATION RATE . ESTIMATED GFR I S NOT APPLICABLE FOR DIALYSIS PATIEN TS. [employer] Farm Manager ID - JACOB [facility]BC W/PLT COUNT & AUTO [id number] 04:59:31 Test Item Value Reference Range Interpretation Comments WHITE BLOOD CELL COUNT (BEAKER) 9.7 K/ L 3.5-10.5 (test code = 775) RED BLOOD CELL COUNT (BEAKER) 4.14 M/ L 4.63-6.08 L (test code = 761) HEMOGLOBIN (BEAKER) (test code = 13.6 GM/DL 13.7-17.5 L 410) HEMATOCRIT (BEAKER) (test code = 40.3 % 40.1-51.0 411) MEAN CORPUSCULAR VOLUME (BEAKER) 97.3 fL 79.0-92.2 H (test code = 753) MEAN CORPUSCULAR HEMOGLOBIN 32.9 pg 25.7-32.2 H (BEAKER) (test code = 751) MEAN CORPUSCULAR HEMOGLOBIN CONC 33.7 GM/DL 32.3-36.5 (BEAKER) (test code = 752) RED CELL DISTRIBUTION WIDTH 13.0 % 11.6-14.4 (BEAKER) (test code = 412) PLATELET COUNT (BEAKER) (test 186 K/CU MM 150-450 code = 756) MEAN PLATELET VOLUME (BEAKER) 10.0 fL 9.4-12.4 (test code = 754) NUCLEATED RED BLOOD CELLS 0 /100 WBC 0-0 (BEAKER) (test code = 413) NEUTROPHILS RELATIVE PERCENT 56 % (BEAKER) (test code = 429) LYMPHOCYTES RELATIVE PERCENT 33 % (BEAKER) (test code = 430) MONOCYTES RELATIVE PERCENT 8 % (BEAKER) (test code = 431) EOSINOPHILS RELATIVE PERCENT 2 % (BEAKER) (test code = 432) BASOPHILS RELATIVE PERCENT 1 % (BEAKER) (test code = 437) NEUTROPHILS ABSOLUTE COUNT 5.40 K/ L 1.78-5.38 H (BEAKER) (test code = 670) LYMPHOCYTES ABSOLUTE COUNT 3.18 K/ L 1.32-3.57 (BEAKER) (test code = 414) MONOCYTES ABSOLUTE COUNT (BEAKER) 0.80 K/ L 0.30-0.82 (test code = 415) EOSINOPHILS ABSOLUTE COUNT 0.19 K/ L 0.04-0.54 (BEAKER) (test code = 416) BASOPHILS ABSOLUTE COUNT (BEAKER) 0.06 K/ L 0.01-0.08 (test code = 417) IMMATURE GRANULOCYTES-RELATIVE 1 % 0-1 PERCENT (BEAKER) (test code = 2801) BASIC METABOLIC [id number] 04:45:24 Test Item Value Reference Range Interpretation Comments SODIUM (BEAKER) 136 meq/L 136-145 (test code = 381) POTASSIUM (BEAKER) 3.9 meq/L 3.5-5.1 (test code = 379) CHLORIDE (BEAKER) 101 meq/L 98-107 (test code = 382) CO2 (BEAKER) (test 25 meq/L 22-29 code = 355) BLOOD UREA NITROGEN 15 mg/dL 7-21 (BEAKER) (test code = 354) CREATININE (BEAKER) 1.06 mg/dL 0.57-1.25 (test code = 358) GLUCOSE RANDOM 98 mg/dL 70-105 (BEAKER) (test code = 652) CALCIUM (BEAKER) 9.4 mg/dL 8.4-10.2 (test code = 697) EGFR (BEAKER) (test 87 mL/min/1.73 ESTIMA MILA GFR IS code = 1092) sq m NOT ACCURATE CREATININE CLEARANCE IN PREDICTING GLOMERULAR FILTRATION RATE . ESTIMATED GFR I S NOT APPLICABLE FOR DIALYSIS PATIEN TS. [employer] Farm Manager ID - DBCBC W/PLT COUNT & AUTO [id number] 04:06:29 Test Item Value Reference Range Interpretation Comments WHITE BLOOD CELL COUNT (BEAKER) 10.7 K/ L 3.5-10.5 H (test code = 775) RED BLOOD CELL COUNT (BEAKER) 4.44 M/ L 4.63-6.08 L (test code = 761) HEMOGLOBIN (BEAKER) (test code = 14.3 GM/DL 13.7-17.5 410) HEMATOCRIT (BEAKER) (test code = 43.2 % 40.1-51.0 411) MEAN CORPUSCULAR VOLUME (BEAKER) 97.3 fL 79.0-92.2 H (test code = 753) MEAN CORPUSCULAR HEMOGLOBIN 32.2 pg 25.7-32.2 (BEAKER) (test code = 751) MEAN CORPUSCULAR HEMOGLOBIN CONC 33.1 GM/DL 32.3-36.5 (BEAKER) (test code = 752) RED CELL DISTRIBUTION WIDTH 13.0 % 11.6-14.4 (BEAKER) (test code = 412) PLATELET COUNT (BEAKER) (test 190 K/CU MM 150-450 code = 756) MEAN PLATELET VOLUME (BEAKER) 9.9 fL 9.4-12.4 (test code = 754) NUCLEATED RED BLOOD CELLS 0 /100 WBC 0-0 (BEAKER) (test code = 413) NEUTROPHILS RELATIVE PERCENT 64 % (BEAKER) (test code = 429) LYMPHOCYTES RELATIVE PERCENT 26 % (BEAKER) (test code = 430) MONOCYTES RELATIVE PERCENT 8 % (BEAKER) (test code = 431) EOSINOPHILS RELATIVE PERCENT 1 % (BEAKER) (test code = 432) BASOPHILS RELATIVE PERCENT 1 % (BEAKER) (test code = 437) NEUTROPHILS ABSOLUTE COUNT 6.80 K/ L 1.78-5.38 H (BEAKER) (test code = 670) LYMPHOCYTES ABSOLUTE COUNT 2.76 K/ L 1.32-3.57 (BEAKER) (test code = 414) MONOCYTES ABSOLUTE COUNT (BEAKER) 0.84 K/ L 0.30-0.82 H (test code = 415) EOSINOPHILS ABSOLUTE COUNT 0.15 K/ L 0.04-0.54 (BEAKER) (test code = 416) BASOPHILS ABSOLUTE COUNT (AKER) 0.08 K/ L 0.01-0.08 (test code = 417) IMMATURE GRANULOCYTES-RELATIVE 1 % 0-1 PERCENT (AKER) (test code = 2801) [id number] 12:31:09 Test Item Value Reference Range Interpretation Comments RPR SCREEN ([facility]) (test code = Nonreactive Nonreactive 420) HEMOGLOBIN [id number] 10:00:30 Test Item Value Reference Range Interpretation Comments HEMOGLOBIN A1C 5.2 % See_Comment [Automated m essage] ELECTROPHORESIS ([facility]) The system which (test code = 3212) generated this result transmitted ref erence range: <=5.6%. The reference range was not used to int erpret this result as normal/abnormal . "The A1c is measured using a [facility]certified method. HbA1c value equal to or greater than 6.5% as thediagnosis cutoff for diabetes. An HbA1c value of 5.7- 6.4% indicates increased risk for diabetes (prediabetes)."[employer] Farm Manager ID - ADMOperator ID - ADMVITAMIN B12 AND [id number] 02:51:34 Test Item Value Reference Range Interpretation Comments VITAMIN B12 688 pg/mL 213-816 ([employer]) (test code = 774) FOLATE ([employer]) 14.60 ng/mL See_Comment [Automated message] (test code = 362) The system which generated this result transmitted ref erence range: >=7.00. The reference range was not used to interpr et this result as normal/abnormal . [employer] Farm Manager ID - JACOB MTSH/FREE T4 IF [id number] 22:56:15 Test Item Value Reference Range Interpretation Comments THYROID STIMULATING HORMONE 3.905 uIU/mL 0.350-4.940 ([employer]) (test code = 772) [employer] Farm Manager ID - DBC-REACTIVE [id number] 22:36:37 Test Item Value Reference Range Interpretation Comments C-REACTIVE PROTEIN (BEAKER) (test 2.89 mg/dL 0.00-0.50 H code = 676) [employer] Farm Manager ID - DBLIPID [id number] 22:36:37 Test Item Value Reference Range Interpretation Comments TRIGLYCERIDES ([employer]) (test code = 81 mg/dL 540) CHOLESTEROL (BEAKER) (test code = 229 mg/dL 631) HDL CHOLESTEROL (BEAKER) (test code 85 mg/dL = 976) LDL CHOLESTEROL CALCULATED (BEAKER) 128 mg/dL (test code = 633) Triglyceride Reference Range: Low Risk <150 Borderline 150-199 High Risk 200-499 Very High Risk >=500Cholesterol Reference Range: Low Risk <200 Borderline 200-239 High Risk >240HDL Cholesterol Reference Range: Low Risk >=60 High Risk <40LDL Cholesterol Reference Range: Optimal <100 Near Optimal 100-129 Borderline 130-159 High 160-189 Very High >=190 [employer] Farm Manager ID - DBCOMPREHENSIVE METABOLIC [id number] 22:36:36 Test Item Value Reference Range Interpretation Comments TOTAL PROTEIN 7.5 gm/dL 6.0-8.3 (BEAKER) (test code = 770) ALBUMIN (BEAKER) 4.4 g/dL 3.5-5.0 (test code = 1145) ALKALINE PHOSPHATASE 83 U/L 40-150 (BEAKER) (test code = 346) BILIRUBIN TOTAL 0.9 mg/dL 0.2-1.2 (BEAKER) (test code = 377) SODIUM (BEAKER) (test 139 meq/L 136-145 code = 381) POTASSIUM (BEAKER) 4.2 meq/L 3.5-5.1 (test code = 379) CHLORIDE (BEAKER) 102 meq/L 98-107 (test code = 382) CO2 (BEAKER) (test 24 meq/L 22-29 code = 355) BLOOD UREA NITROGEN 16 mg/dL 7-21 (BEAKER) (test code = 354) CREATININE (BEAKER) 1.13 mg/dL 0.57-1.25 (test code = 358) GLUCOSE RANDOM 100 mg/dL 70-105 (BEAKER) (test code = 652) CALCIUM (BEAKER) 9.6 mg/dL 8.4-10.2 (test code = 697) AST (SGOT) (BEAKER) 24 U/L 5-34 (test code = 353) ALT (SGPT) (BEAKER) 20 U/L 6-55 (test code = 347) EGFR (BEAKER) (test 81 mL/min/1.73 ESTIMA MILA GFR IS code = 1092) sq m NOT ACCURATE CREATININE CLEARANCE IN PREDICTING GLOMERULAR FILTRATION RATE . ESTIMATED GFR I S NOT APPLICABLE FOR DIALYSIS PATIEN TS. [employer] Farm Manager ID - [id number] 22:28:54 Test Item Value Reference Range Interpretation Comments PROTIME (BEAKER) 14.1 seconds 11.9-14.2 (test code = 759) INR (BEAKER) (test 1.11 See_Comment [Automat ed message] code = 370) The system vivit generated this result transmitted ref erence range: <=5.90. The reference range was not used to int erpret this result as normal/abnormal . RECOMMENDED COUMADIN/WARFARIN INR THERAPY RANGESSTANDARD DOSE: 2.0 - 3.0 Includes: PROPHYLAXIS forvenous thrombosis, systemic embolization; TREATMENT for venous thrombosis and/or pulmonary embolus.HIGH RISK: Target INR is 2.5-3.5 for patients with mechanical heart valves.CBC W/PLT COUNT & AUTO DIFFERENTIAL 2021-10-19 22:18:13 Test Item Value Reference Range Interpretation Comments WHITE BLOOD CELL COUNT (BEAKER) 9.7 K/ L 3.5-10.5 (test code = 775) RED BLOOD CELL COUNT (BEAKER) 4.53 M/ L 4.63-6.08 L (test code = 761) HEMOGLOBIN (BEAKER) (test code = 14.8 GM/DL 13.7-17.5 410) HEMATOCRIT (BEAKER) (test code = 44.3 % 40.1-51.0 411) MEAN CORPUSCULAR VOLUME (BEAKER) 97.8 fL 79.0-92.2 H (test code = 753) MEAN CORPUSCULAR HEMOGLOBIN 32.7 pg 25.7-32.2 H (BEAKER) (test code = 751) MEAN CORPUSCULAR HEMOGLOBIN CONC 33.4 GM/DL 32.3-36.5 (BEAKER) (test code = 752) RED CELL DISTRIBUTION WIDTH 13.6 % 11.6-14.4 (BEAKER) (test code = 412) PLATELET COUNT (BEAKER) (test 207 K/CU MM 150-450 code = 756) MEAN PLATELET VOLUME (BEAKER) 9.6 fL 9.4-12.4 (test code = 754) NUCLEATED RED BLOOD CELLS 0 /100 WBC 0-0 (BEAKER) (test code = 413) NEUTROPHILS RELATIVE PERCENT 69 % (BEAKER) (test code = 429) LYMPHOCYTES RELATIVE PERCENT 22 % (BEAKER) (test code = 430) MONOCYTES RELATIVE PERCENT 7 % (BEAKER) (test code = 431) EOSINOPHILS RELATIVE PERCENT 1 % (BEAKER) (test code = 432) BASOPHILS RELATIVE PERCENT 1 % (BEAKER) (test code = 437) NEUTROPHILS ABSOLUTE COUNT 6.65 K/ L 1.78-5.38 H (BEAKER) (test code = 670) LYMPHOCYTES ABSOLUTE COUNT 2.15 K/ L 1.32-3.57 (BEAKER) (test code = 414) MONOCYTES ABSOLUTE COUNT (BEAKER) 0.70 K/ L 0.30-0.82 (test code = 415) EOSINOPHILS ABSOLUTE COUNT 0.05 K/ L 0.04-0.54 (BEAKER) (test code = 416) BASOPHILS ABSOLUTE COUNT (BEAKER) 0.06 K/ L 0.01-0.08 (test code = 417) IMMATURE GRANULOCYTES-RELATIVE 1 % 0-1 PERCENT (BEAKER) (test code = 0421)
[2021-10-22] MEDS ORDERED: IBUPROFEN 200 MG TAB PO PRN (21:14)
[2021-10-22] MEDS: ATORVASTATIN 80 MG TAB PO SCH (21:54)
[2021-10-22] MEDS: MELATONIN 5 MG TABLET PO PRN (21:54)
[2021-10-22 22:59] LABS: Urine Appearance Clear (Clear); Urine Bilirubin Negative (Negative); Urine Blood Negative (Negative); Urine Color Yellow (Yellow); Urine Glucose Negative (Negative); Urine Protein Negative (Negative); Urine Specific Gravity 1.025 (1.005-1.030); Urine Urobilinogen 0.2 mg/dL (0.2-1.0); Urine pH 5.5 (5.0-7.0)
[2021-10-22 23:09] LABS: Urine Microscopic Reflex ORDER UMIC
[2021-10-22 23:16] LABS: Urine Bacteria <20 /HPF (NONE SEEN); Urine RBC <5 /HPF (NONE SEEN); Urine Urothelial Cells <5 /HPF (NONE SEEN)
[2021-10-23 04:36] LABS: Absolute Lymphocytes (CBC) 2.8 K/uL (0.7-4.9); Hematocrit 45.2 % (39.6-49.0); MPV 8.2 fL (7.6-11.3); RBC Red Blood Cell Count 4.64 M/uL (4.33-5.43)
[2021-10-23 04:57] LABS: Albumin 3.4 g/dL (3.4-5.0); Magnesium 1.9 mg/dL (1.8-2.4); Potassium 3.6 mmol/L (3.5-5.1); Prealbumin 14.1 mg/dL (20-40)
[2021-10-23] MEDS: METOPROLOL TAR 25 MG TAB PO SCH ×2 (05:09→17:41)
[2021-10-23] MEDS ORDERED: METOPROLOL XL 50 MG TAB PO SCH (08:00)
[2021-10-23] MEDS: FLUOXETINE 20 MG CAP PO SCH (08:25)
[2021-10-23] MEDS: ASPIRIN 81 MG CHEWABLE TABLET PO SCH (08:25)
[2021-10-23] MEDS: MULTIVIT W/ MINERAL TAB PO SCH (08:25)
[2021-10-23] MEDS: terbinafine HCL 250 MG TAB PO SCH (12:31)
[2021-10-23] MEDS ORDERED: DOCUSATE NA/SENNA CONC 1 TAB PO PRN (14:08)
--- NOTE | 2021-10-23 17:16 | R.HP ---
HISTORY AND PHYSICAL FACILITY: [facility] ENCOUNTER DATE AND TIME: 10/23/2021 17:08 (CDT) MR#: [id number] NAME AZAM TEJEDA ADDRESS: [address] [place] [address] CITY: [place]IP [id number] PHONE: DATE OF : 1960 AGE: 61 SSN# [id number] GENDER: Male DEXTERITY Unknown dexterity MARITAL STATUS Single (Never ) RACE Unknown race PRE-HOSPITAL LIVING SETTING 01 - Home (private home/apt. board/care, assisted living, care home, transitional living) PRE-HOSPITAL LIVING WITH Alone ENCOUNTER PHYSICIAN: Dr. Domingo Novak M.D. REFERRING DOCTOR: Cody Matos DATE OF ADMISSION: 10/22/2021 20:49 (CDT) REFERRING FACILITY [facility] HOME TYPE AND DETAILS: Type of home: single family house # of levels in the residence: 2 # of steps within the residence: unknown # of steps to enter the residence: 1 ONSET DATE: 10/18/2021 PRIMARY DIAGNOSIS-RELATED SURGERIES: None HISTORY OF PRESENT ILLNESS (HPI): On 10/18/2021 Pt. presented to [facility] with sudden onset of left-side weakness. Pt. is a 61 yo male of unknown race. 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 His impairment category is Stroke 01 - Left Body (Right Brain) (01.1). Pre-morbidly, Pt. was independent/mod-I in Locomotion and Self-Care; and he had good Balance, Communi cation, Endurance, Safety Awareness, and Transfers Control. Currently, he has deficits of Locomotion, Balance, Self-Care, Communication, Endurance, and Safety Aw areness. Pt. is now referred to [facility] for acute in-patient rehabilitation in order to maximize patient's functional independence in activities of daily living, strength, ROM, and mobi lity. Patient has realistic goal of being discharged at assistance level 6-Christy to reside at Home with Pt self. MEDICATION ALLERGIES: No Known Drug Allergies (NKDA) ENVIRONMENTAL ALLERGIES: - Substance Allergies None Known - Other Allergies None Known PAST MEDICAL HISTORY: Hypertension Atrial Fibrillation PAST SURGICAL HISTORY: None SOCIAL HISTORY: - Home Living Alone REVIEW OF SYSTEMS: - Gen No Chills Fatigue No Fever - Eyes No Double Vision No itchiness - ENMT No Difficulty Swallowing - CVS No Chest Discomfort No Chest Pain No Fatigue No Weight Gain - Resp No Cough No Shortness of Breath - GI Continent No Abdominal Pain No Constipation No Diarrhea - Continent No Kidney Pain No Painful Urination No Urinary Urgency - MSK No Joint Pain Muscle Cramps Stiffness - Skin No Itching No Rash No Suspicious Lesions - Neuro Coordination Difficulty No Difficulty with Concentration No Memory Loss No Seizures Weakness - Psych No Anxiety No Depression No HIV Exposure No Persistent Infections No Seasonal Allergies - Endo No Cold/Heat Intolerance No Excessive Hunger No Excessive Thirst No Excessive Urination PHYSICAL EXAM - Gen Alert and awake Lying in bed No apparent distress Oriented to: person, time, and place - Skin No skin breakdown. No abnormalities - Eyes No abnormalities - ENMT No abnormalities - Neck No abnormalities - CVS RRR - Chest No abnormalities - Abd Soft - GI Non distended No abnormalities - No abnormalities - Ext No significant edema - MSK 4+/5 weakness in left upper and lower extremity - Neuro 4/5 strength left upper and lower extremities. - Psych No abnormalities VITAL SIGNS Temperature: 97.8 F SBP/DBP: 121/88 Pulse: 90 Resp: 18 NURSING: - Shower allowing shower - Bladder care per protocol - Skin care per protocol PRECAUTIONS: - Fall Precaution Bed alarm TABS alarm Wheel chair alarm - DVT Risk due to restricted mobility and age - Cardiac Precaution Monitor blood pressure, heart rate, lower extremity edema, notify MD for shortness of breath or chest pain - Skin Breakdown Risk due to restricted mobility and age ACTIVITIES OOB only with supervision QI SCORES: - Self-Care A. Eating 04-Supervision or touching assistance B. Oral hygiene 04-Supervision or touching assistance C. Toileting hygiene 04-Supervision or touching assistance E. Shower/bathe self 03-Partial/moderate assistance F. Upper body dressing 09-Not applicable G. Lower body dressing 01-Dependent H. Putting on/taking off footwear 01-Dependent - Mobility A. Roll left and right 88-Not attempted due to medical condition or safety concerns B. Sit to lying 04-Supervision or touching assistance C. Lying to sitting on side of bed 88-Not attempted due to medical condition or safety concerns D. Sit to stand 04-Supervision or touching assistance E. Chair/nyp-xt-umaaz transfer 03-Partial/moderate assistance F. Toilet transfer 03-Partial/moderate assistance G. Car transfer 03-Partial/moderate assistance I. Walk 10 feet 03-Partial/moderate assistance J. Walk 50 feet with two turns 03-Partial/moderate assistance K. Walk 150 feet 88-Not attempted due to medical condition or safety concerns L. Walking 10 feet on uneven surfaces 88-Not attempted due to medical condition or safety concerns M. 1 step (curb) 88-Not attempted due to medical condition or safety concerns N. 4 steps 88-Not attempted due to medical condition or safety concerns O. 12 steps 88-Not attempted due to medical condition or safety concerns P. Picking up object 88-Not attempted due to medical condition or safety concerns R. Wheel 50 feet with two turns 09-Not applicable S. Wheel 150 feet 09-Not applicable - Bladder and Bowel Bladder continence 0-Always continent Bowel continence 0-Always continent - Endurance Fair - Balance Fair - Safety Awareness Fair CURRENT FUNC. DEFICITS: Self-Care, Endurance, Balance, Safety Awareness, and Mobility MEDICATIONS: - Other See attached MAR (Medication Administration Record) ASSESSMENT: On 10/18/2021 Pt. presented to [facility] with sudden onset of left-side weakness.Pt. 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 was independent/mod-I in Loc omotion and Self-Care; and he had good Balance, Communication, Endurance, Safety Awareness, and Trans fers Control.Currently, he has deficits of Locomotion, Balance, Self-Care, Communication, Endurance, and Safety Awareness.Pt. is now referred to [facility] for acute in-patient re habilitation in order to maximize patient's functional independence in activities of daily living, st rength, ROM, and mobility.- Rehab Goal Patient has realistic goal of being discharged at assistance level 6-Christy to reside at Home with Pt self. for Dementia, TBI, Stroke, or others - Physical Therapy Gait dysfunction - to improve, our physical therapists will perform initial evaluation of pt's status upon admission and devise an individualized program for Gait Training, and Wheel Chair mobility Need for home safety evaluation - to improve, our physical therapists will perform initial evaluation of pt's status upon admission and devise an individualized program for Home Evaluation Need in caregiver upon discharge - to improve, our physical therapists will perform initial evaluatio n of pt's status upon admission and devise an individualized program for Caregiver Training New precaution - to improve, our physical therapists will perform initial evaluation of pt's status u umu admission and devise an individualized program for Patient precaution education Edema - to improve, our physical therapists will perform initial evaluation of pt's status upon admi ssion and devise an individualized program for Elevation Training, and Lymphedema Therapy Poor balance - to improve, our physical therapists will perform initial evaluation of pt's status upo n admission and devise an individualized program for Balance Training Poor endurance - to improve, our physical therapists will perform initial evaluation of pt's status u umu admission and devise an individualized program for Endurance Training Weakness - to improve, our physical therapists will perform initial evaluation of pt's status upon ad mission and devise an individualized program for Aquatic Therapy, Neuromuscular Reeducation, and Stre ngthening Achieving independence - to improve, our physical therapists will perform initial evaluation of pt's status upon admission and devise an individualized program for Community Reintegration Activities - Occupational Therapy ADL deficits - to improve, our occupation therapists will perform initial evaluation of pt's status u umu admission and devise an individualized program for Bathing, Bed mobility, Community Reintegration , Cooking, Dressing, Eating, Fine Motor Skills, Grooming, Homemaking, Kitchen Mobility, Laundry, Sharifa ent Education, Safety Awareness, Splinting - Positioning, Transfers(Toilet, Tub, Shower), and Wheel C hair Management Need for client care representative - to improve, our occupation therapists will perform initial evaluation of pt's s tatus upon admission and devise an individualized program for Caregiver Training Weakness - to improve, our occupation therapists will perform initial evaluation of pt's status upon admission and devise an individualized program for Aquatic Therapy, Balance, Endurance, UE ROM, and U E strengthening MEDICAL PLAN: - Diet Type Start Regular - Diet - Liquid Texture Start Regular - Tube Feed Start N/A - Bladder care per protocol - DVT Risk due to restricted mobility and age - Skin Breakdown Risk due to restricted mobility and age - Cardiac Precaution Monitor blood pressure, heart rate, lower extremity edema, notify MD for shortness of breath or ches t pain - Weight Bearing Precaution WBAT left LE - Fall Precaution Bed alarm TABS alarm Wheel chair alarm - Skin care per protocol - Other See attached MAR (Medication Administration Record) - Diet - Solid Texture Regular - Shower shower DISCHARGE PLAN: - Estimated Length of Stay (days) 17. - Consensus on plan Discharge plan has been discussed with primary caregiver. Patient/Family is in agreement with the vale n. Primary caregiver is in agreement with the plan. - Patient/Family Goals Return home independently. - Potential barriers to discharge Any lines must be removed or patient/caregiver needs to be educated on line care. - Planned Living Setting Upon Discharge Home, to live alone. Transitional Living. Primary caregiver: Pt self. SIGNATURE PANEL: (CDT)
--- NOTE | 2021-10-23 17:20 | PAPE ---
POST ADMISSION PHYSICIAN EVALUATION PATIENT: [facility] MR# [id number] REFERRING DOCTOR Cody Matos EVALUATION DATE AND TIME 10/23/2021 17:17 (CDT) NAME AZAM TEJEDA DATE OF 1960 AGE 61 PHONE SSN# [id number] GENDER male EVALUATING PHYSICIAN Dr. Domingo Novak M.D. 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 PATIENT NEEDS CLOSE MEDICAL SUPERVISION BY A REHABILITATION PHYSICIAN FOR: Coordination of Treatment Team Bowel and Bladder Management DVT Management Medical and Co-Morbidity Management Pain Management PATIENT REQUIRES 24X7 REHAB NURSING FOR MEDICAL AND FUNCTIONAL MGT. OF THE FOLLOWING DEFICITS: Patient requires 24x7 Rehabilitation Nursing for: Pain Issues, Identifying and preventing risk factor s, Monitoring and reporting current medical conditions, Assisting with ambulation and transfer, Esvin ting with all ADL-s, Teaching patients about disease process and medications, Family teaching, Provid ing safe environment, Bowel and Bladder Issues, Skin Integrity, and Medication Management PATIENT REQUIRES INTENSIVE, COORDINATED INTERDISCIPLINARY APPROACH TO REHAB: Patient needs Dietary and Nutrition Services for: Adequate Nutrition, Nutritional Supplements, and Nu tritional Education Patient needs Gold Frame Assembler and/or Case Management for: Discharge Planning, Arranging Home Equipmen t or Services, and Family Interventions LIST OF IDENTIFIED AND POTENTIAL PROBLEMS: Alteration in leisure activities Bladder, Incontinence Bowel, Incontinence Falls, Actual or Potential Ineffective Communication Infection, Actual or Potential Mobility Impaired Pain, Alteration in Comfort Self Care Deficit Skin Integrity, Actual or Potential Urinary Tract Infection (UTI), Actual or Potential RISK FOR COMPLICATIONS - DVT Active and Passive ROM exercises. Assist patient with frequent position changes. Elevate BLE. - Skin Breakdown Encourage ambulation as tolerated. Repositioning q 2 hours. Use of pillows or foam wedges while in be d. - Falls Maintain call light within patient reach for easy access to nursing assistance. Provide assistance ge tting out of bed and with ambulation. Provide assistive devices. - Pain Anticipate the need for pain medication for optimal pain managment. Administer prescribed pain medica tion as needed. Education on relaxation and deep breathing techniques. - Stroke Monitor and maintain patient pain level. Monitor patient blood pressure. INTERVENTIONS - Stroke Provide aggressive PT, OT and Speech to improve pt level of function. Assess pt neuro status regularl y. - Permissive Hypertension Monitor pt b/p regularly. Administer medications when indicated by pt BP per MD order and monitor eff ectivness. - Afib Administer prescribed anticoagulants and monitor effectiveness. Vitals will be monitored regularly. M onitor pt cardiac and respiratory status. - DVT Administer medications as prescribed per MD. Reposition pt regularly. PATIENT COULD BE AT RISK FOR COMPLICATIONS FROM ADVERSE MEDICAL CONDITIONS DUE TO HIS/HER COMORBIDITI ES AND THE RIGORS OF THE INTENSIVE REHABILLITATION PROGRAM. METHODS OR INTERVENTIONS TO AVOID COMPLIC ATIONS INCLUDE: - Deep Vein Thrombosis (DVT) Prophylaxis therapy for prevention . Sequential Compression Device (SCD). TE D Hose. - Bleeding Stroke patients assessed for lethargy or change in status. - Infection Clinical staff to assess and manage the signs and symptoms of infection including fever, redness, war mth, etc. - Urinary Tract Infection - Aspiration Clinical staff will assess and manage coughing, drooling, congestion. - Falls Patient will be evaluated for Fall Precautions and will be placed on Fall Precautions as indicated pe r protocol. - Skin Breakdown Nursing will assess skin daily using assessment tool and will place on Skin Breakdown Precautions as indicated per protocol. - Pain Clinical staff may employ non-medication methods such as massage, distraction, decrease stimulus, etc . as needed. Clinical staff will assess patient's pain level every shift per protocol to assess and e nsure pain management effectiveness. Medications will be given and the pain level re-assessed. PRELIMINARY PLAN OF CARE: - Physical Therapy Patient needs Physical Therapy for a daily minimum of 1.5 hours at least 5 out of 7 days, to improve: Mobility, Strengthening, Transfers, Stretching, ROM, Endurance, Ability to manage stairs, Gait, and Balance. - Speech Therapy Patient needs Speech Therapy for a daily minimum of 0.5 hours at least 5 out of 7 days, to improve: S wallowing, Cognition, Language Skills, and Compensatory Strategies. - Rehabilitation Nursing Patient requires 24x7 Rehabilitation Nursing for: Pain Issues, Identifying and preventing risk factor s, Monitoring and reporting current medical conditions, Assisting with ambulation and transfer, Esvin ting with all ADL-s, Teaching patients about disease process and medications, Family teaching, Provid ing safe environment, Bowel and Bladder Issues, Skin Integrity, and Medication Management. Patient needs Gold Frame Assembler and/or Case Management for: Discharge Planning, Arranging Home Equipmen t or Services, and Family Interventions. - Dietary and Nutrition Services Patient needs Dietary and Nutrition Services for: Adequate Nutrition, Nutritional Supplements, and Nu tritional Education. - Occupational Therapy Patient needs Occupational Therapy for a daily minimum of 1.5 hours at least 5 out of 7 days, to impr ove Activities of Daily Living, including: Eating, Grooming, Bathing, Dressing, Toileting, Toilet Tra nsfers, Community Reintegration, Higher functional activities, Adaptive Equipment, Splinting, Househo ld Tasks, and Other activities as determined. QI SCORES: - Self-Care A. Eating 04-Supervision or touching assistance B. Oral hygiene 04-Supervision or touching assistance C. Toileting hygiene 04-Supervision or touching assistance E. Shower/bathe self 03-Partial/moderate assistance F. Upper body dressing 09-Not applicable G. Lower body dressing 01-Dependent H. Putting on/taking off footwear 01-Dependent - Mobility A. Roll left and right 88-Not attempted due to medical condition or safety concerns B. Sit to lying 04-Supervision or touching assistance C. Lying to sitting on side of bed 88-Not attempted due to medical condition or safety concerns D. Sit to stand 04-Supervision or touching assistance E. Chair/pin-tn-pjgja transfer 03-Partial/moderate assistance F. Toilet transfer 03-Partial/moderate assistance G. Car transfer 03-Partial/moderate assistance I. Walk 10 feet 03-Partial/moderate assistance J. Walk 50 feet with two turns 03-Partial/moderate assistance K. Walk 150 feet 88-Not attempted due to medical condition or safety concerns L. Walking 10 feet on uneven surfaces 88-Not attempted due to medical condition or safety concerns M. 1 step (curb) 88-Not attempted due to medical condition or safety concerns N. 4 steps 88-Not attempted due to medical condition or safety concerns O. 12 steps 88-Not attempted due to medical condition or safety concerns P. Picking up object 88-Not attempted due to medical condition or safety concerns R. Wheel 50 feet with two turns 09-Not applicable S. Wheel 150 feet 09-Not applicable - Bladder and Bowel Bladder continence 0-Always continent Bowel continence 0-Always continent - Endurance Fair - Balance Fair - Safety Awareness Fair POTENTIAL FUNCTIONAL GOALS FOR PATIENT TO ACHIEVE BY DISCHARGE: - Safety Precaution Patient will remain free from falls or injury at time of discharge. - Bed Mobility Patient will perform bed mobility at 4-Drake level of assistance. - Transfers Patient will complete transfers from bed to chair at 4-Drake level of assistance. - Mobility Patient will ambulate 150 ft with 4-Drake level of assistance with RW. PATIENT REHAB POTENTIAL LorenzaVipul TEJEDA is able and expected to receive 3 hours of individualized therapy daily on at least 5 of every 7 days Guero TEJEDA's prognosis for significant practical improvement within a reasonable period of time jordan ears Good Expected level of measurable improvement will be of a practical value to Guero TEJEDA's functional ca pacity or adaptations to impairments Has a viable Discharge Plan Medically appropriate; condition is sufficiently stable to participate in intensive rehab program DISCHARGE PLAN: - Estimated Length of Stay (days) 17. - Consensus on plan Discharge plan has been discussed with primary caregiver. Patient/Family is in agreement with the vale n. Primary caregiver is in agreement with the plan. - Patient/Family Goals Return home independently. - Potential barriers to discharge Any lines must be removed or patient/caregiver needs to be educated on line care. - Planned Living Setting Upon Discharge Home, to live alone. Transitional Living. Primary caregiver: Pt self. CONCLUSION ON REHABILITATION NECESSITY: I have evaluated patient's pre-admission functional status and, comparing it to the patient's post-ad mission functional status now, I conclude that the pre-admission assessment was accurate. Patient's c ondition on admission supports the medical necessity of admission to [facility]. It is safe to proceed with patient's therapy program. SIGNATURE PANEL: (CDT)
[2021-10-23] MEDS: MELATONIN 5 MG TABLET PO PRN (20:20)
[2021-10-23] MEDS: APIXABAN 2.5 MG TABLET PO SCH (20:20)
[2021-10-23] MEDS: ATORVASTATIN 80 MG TAB PO SCH (20:20)
[2021-10-23 21:56] LABS: Urine Appearance Clear (Clear); Urine Bilirubin Negative (Negative); Urine Blood Negative (Negative); Urine Color Yellow (Yellow); Urine Glucose Negative (Negative); Urine Protein Negative (Negative); Urine Specific Gravity 1.025 (1.005-1.030); Urine Urobilinogen 0.2 mg/dL (0.2-1.0); Urine pH 5.5 (5.0-7.0)
[2021-10-23 22:10] LABS: Urine Microscopic Reflex NO UMIC
[2021-10-24] MEDS: METOPROLOL TAR 25 MG TAB PO SCH ×2 (05:03→18:25)
[2021-10-24] MEDS: ASPIRIN 81 MG CHEWABLE TABLET PO SCH (07:34)
[2021-10-24] MEDS: FLUOXETINE 20 MG CAP PO SCH (07:34)
[2021-10-24] MEDS: MULTIVIT W/ MINERAL TAB PO SCH (07:34)
[2021-10-24] MEDS: terbinafine HCL 250 MG TAB PO SCH (07:34)
[2021-10-24] MEDS: APIXABAN 2.5 MG TABLET PO SCH ×2 (07:34→20:03)
--- NOTE | 2021-10-24 09:52 | P.RH.PN ---
Estimated Length of Stay: 14 Expected Discharge Date: 11/05/21 Discharge Disposition Plan: Home Family Support: Yes [facility] Goal: Mobility, Transfers, Self Care Vital Signs: Last Vital Signs Temp 96.6 F L 10/24/21 08:00 Pulse 50 10/24/21 08:00 Resp 16 10/24/21 08:00 BP 124/83 10/24/21 08:00 Pulse Ox 100 10/24/21 08:00 Laboratory: Laboratory Last Values WBC 9.2 K/uL (4.3-10.9) D 10/23/21 04:19 RBC 4.64 M/uL (4.33-5.43) 10/23/21 04:19 Hgb 15.0 g/dL (13.6-17.9) 10/23/21 04:19 Hct 45.2 % (39.6-49.0) 10/23/21 04:19 MCV 97.5 fL (80-100) 10/23/21 04:19 MCH 32.3 pg (27.0-35.0) 10/23/21 04:19 MCHC 33.1 g/dL (32.0-36.0) 10/23/21 04:19 RDW 13.8 % (12.1-15.2) 10/23/21 04:19 Plt Count 203 K/uL (152-406) 10/23/21 04:19 MPV 8.2 fL (7.6-11.3) 10/23/21 04:19 Neutrophils % 59.6 % (41.7-73.7) 10/23/21 04:19 Lymphocytes % 30.0 % (15.3-44.8) 10/23/21 04:19 Monocytes % 7.4 % (3.3-12.3) 10/23/21 04:19 Eosinophils % 2.3 % (0-4.4) 10/23/21 04:19 Basophils % 0.7 % (0-1.3) 10/23/21 04:19 Absolute Neutrophils 5.5 K/uL (1.8-8.0) 10/23/21 04:19 Absolute Lymphocytes 2.8 K/uL (0.7-4.9) 10/23/21 04:19 Absolute Monocytes 0.7 K/uL (0.1-1.3) 10/23/21 04:19 Absolute Eosinophils 0.2 K/uL (0-0.5) 10/23/21 04:19 Absolute Basophils 0.1 K/uL (0-0.5) 10/23/21 04:19 Sodium 139 mmol/L (136-145) 10/23/21 04:19 Potassium 3.6 mmol/L (3.5-5.1) 10/23/21 04:19 Chloride 106 mmol/L (98-107) 10/23/21 04:19 Carbon Dioxide 26 mmol/L (21-32) 10/23/21 04:19 Anion Gap 10.6 mEq/L (5.0-15.0) 10/23/21 04:19 BUN 20 mg/dL (7-18) H 10/23/21 04:19 Creatinine 1.05 mg/dL (0.55-1.3) 10/23/21 04:19 Est GFR (CKD-EPI) 82 ml/min (=/>90) L 10/23/21 04:19 Glucose 104 mg/dL (74-106) 10/23/21 04:19 Calcium 9.0 mg/dL (8.5-10.1) 10/23/21 04:19 Magnesium 1.9 mg/dL (1.8-2.4) 10/23/21 04:19 Albumin 3.4 g/dL (3.4-5.0) 10/23/21 04:19 Prealbumin 14.1 mg/dL (20-40) L 10/23/21 04:19 Urine Color Yellow (Yellow) 10/23/21 21:54 Urine Appearance Clear (Clear) 10/23/21 21:54 Urine pH 5.5 (5.0-7.0) 10/23/21 21:54 Ur Specific Evangeline 1.025 (1.005-1.030) 10/23/21 21:54 Glucose (UA)(Auto) Negative (Negative) 10/23/21 21:54 Urine Ketones Negative (Negative) 10/23/21 21:54 Urine Blood Negative (Negative) 10/23/21 21:54 Urine Nitrite Negative (Negative) 10/23/21 21:54 Urine Bilirubin Negative (Negative) 10/23/21 21:54 Urine Urobilinogen 0.2 mg/dL (0.2-1.0) 10/23/21 21:54 Ur Leukocyte Esterase Negative (Negative) 10/23/21 21:54 Urine RBC <5 /HPF (NONE SEEN) 10/22/21 22:56 Urine WBC <5 /HPF (<5) 10/22/21 22:56 Ur Squamous Epith Cells MOLDER PUNCH 10/22/21 22:56 Ur Urothelial Cells <5 /HPF (NONE SEEN) 10/22/21 22:56 Calcium Oxalate Crystal Cancelled 10/22/21 22:10 Uric Acid Crystals Cancelled 10/22/21 22:10 Triple Phos Crystals Cancelled 10/22/21 22:10 Other Crystals Cancelled 10/22/21 22:10 Amorphous Sediment Cancelled 10/22/21 22:10 Glitter Cells Cancelled 10/22/21 22:10 Urine Bacteria <20 /HPF (NONE SEEN) 10/22/21 22:56 Hyaline Casts Cancelled 10/22/21 22:10 Fine Granular Casts Cancelled 10/22/21 22:10 Coarse Granular Casts Cancelled 10/22/21 22:10 Waxy Casts Cancelled 10/22/21 22:10 RBC Casts Cancelled 10/22/21 22:10 WBC Casts Cancelled 10/22/21 22:10 Urine Mucus Cancelled 10/22/21 22:10 Urine Other Cancelled 10/22/21 22:10 Urine Trichomonas Cancelled 10/22/21 22:10 Urine Yeast Cancelled 10/22/21 22:10 Ur Yeast w Hyphae Cancelled 10/22/21 22:10 Urine Yeast (Budding) Cancelled 10/22/21 22:10 Urine Sperm Cancelled 10/22/21 22:10 Urine Culture Reflexed Not needed 10/22/21 22:56 Urine Total Volume Cancelled 10/22/21 22:10 Urine Total Protein Negative (Negative) 10/23/21 21:54 SARS-CoV-2 Rap RNA(RT-PCR) Negative (NEGATIVE) 10/22/21 21:45 Weight: 199 lb Wound Present: No Closed Surgical Incision Present: No Negative Pressure Wound Therapy Present: No Physician Update: Labs reviewed. Supervision with bed mobility and transfers. Min assistance ambulating with rolling walker 80'. Min assistance for ADLs, CGA for transfers, mod martha for upper body dressing. Working on oral motor exercises and language. 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 Please see the Rehabilitation Signature page for all necessary signatures.
[2021-10-24] MEDS: ATORVASTATIN 80 MG TAB PO SCH (20:04)
[2021-10-24] MEDS: MELATONIN 5 MG TABLET PO PRN (22:29)
[2021-10-25 05:19] VITALS: BMI 26.9
[2021-10-25] MEDS: METOPROLOL TAR 25 MG TAB PO SCH ×2 (05:53→17:16)
[2021-10-25] MEDS: APIXABAN 2.5 MG TABLET PO SCH ×2 (07:24→19:33)
[2021-10-25] MEDS: ASPIRIN 81 MG CHEWABLE TABLET PO SCH (09:40)
[2021-10-25] MEDS: terbinafine HCL 250 MG TAB PO SCH (09:40)
[2021-10-25] MEDS: FLUOXETINE 20 MG CAP PO SCH (09:40)
[2021-10-25] MEDS: MULTIVIT W/ MINERAL TAB PO SCH (09:40)
[2021-10-25] MEDS: ATORVASTATIN 80 MG TAB PO SCH (19:34)
[2021-10-26] MEDS: METOPROLOL TAR 25 MG TAB PO SCH ×2 (05:24→16:39)
[2021-10-26] MEDS: MULTIVIT W/ MINERAL TAB PO SCH (07:38)
[2021-10-26] MEDS: ASPIRIN 81 MG CHEWABLE TABLET PO SCH (07:38)
[2021-10-26] MEDS: APIXABAN 2.5 MG TABLET PO SCH ×2 (07:39→19:50)
[2021-10-26] MEDS: terbinafine HCL 250 MG TAB PO SCH (07:39)
[2021-10-26] MEDS: FLUOXETINE 20 MG CAP PO SCH (07:39)
[2021-10-26] MEDS: ATORVASTATIN 80 MG TAB PO SCH (19:51)
[2021-10-27] MEDS: METOPROLOL TAR 25 MG TAB PO SCH ×2 (05:09→16:52)
[2021-10-27] MEDS: FLUOXETINE 20 MG CAP PO SCH (08:07)
[2021-10-27] MEDS: MULTIVIT W/ MINERAL TAB PO SCH (08:07)
[2021-10-27] MEDS: ASPIRIN 81 MG CHEWABLE TABLET PO SCH (08:07)
[2021-10-27] MEDS: terbinafine HCL 250 MG TAB PO SCH (08:07)
[2021-10-27] MEDS: APIXABAN 2.5 MG TABLET PO SCH ×2 (08:07→20:57)
[2021-10-27] MEDS: MELATONIN 5 MG TABLET PO PRN (20:57)
[2021-10-27] MEDS: ATORVASTATIN 80 MG TAB PO SCH (20:57)
[2021-10-28] MEDS: METOPROLOL TAR 25 MG TAB PO SCH ×2 (06:15→21:02)
[2021-10-28] MEDS: ASPIRIN 81 MG CHEWABLE TABLET PO SCH (07:55)
[2021-10-28] MEDS: APIXABAN 2.5 MG TABLET PO SCH ×2 (07:55→21:02)
[2021-10-28] MEDS: FLUOXETINE 20 MG CAP PO SCH (07:55)
[2021-10-28] MEDS: terbinafine HCL 250 MG TAB PO SCH (07:55)
[2021-10-28] MEDS: MULTIVIT W/ MINERAL TAB PO SCH (07:55)
--- NOTE | 2021-10-28 18:33 | R.PN ---
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 SUBJECTIVE: Pt denied any depression. Pt denied any Shortness of Breath. BMP is essentially normal. Prealbumin 14.1, CBC with differential is normal. Ambulated 1250' with contact guard assistance using a rolling walker. Self-propelled wheelchair 500' with standby assistance. VITAL SIGNS Temperature: 0 F SBP/DBP: 158/80 Pulse: 52 Resp: 16 MEDICATION ALLERGIES: No Known Drug Allergies (NKDA) ENVIRONMENTAL ALLERGIES: - Substance Allergies None Known - Other Allergies None Known NURSING: - Shower allowing shower - Bladder care per protocol - Skin care per protocol PRECAUTIONS: - Fall Precaution Bed alarm TABS alarm Wheel chair alarm - DVT Risk due to restricted mobility and age - Cardiac Precaution Monitor blood pressure, heart rate, lower extremity edema, notify MD for shortness of breath or chest pain - Skin Breakdown Risk due to restricted mobility and age ACTIVITIES OOB only with supervision THERAPIES: - Dietary and Nutrition Adequate Nutrition. Nutritional Education. Nutritional Supplements. - Occupational Therapy Cognitive Retraining. Patient needs Occupational Therapy for a daily minimum of 1.5 hours at least 5 out of 7 days, to improve Activities of Daily Living, including: Eating, Grooming, Bathing, Dressing, Toileting, Toilet Transfers, Community Reintegration, Higher functional activities, Adaptive Equipme nt, Splinting, Household Tasks, and Other activities as determined. Visual Perceptual Training. - Speech Therapy Expressive Language Skills. Memory Strategies. Patient needs Speech Therapy for a daily minimum of 1. 5 hours at least 5 out of 7 days, to improve: Cognition, Language Skills, and Compensatory Strategies . Receptive Language Skills. Speech Intelligibility Training. - Physical Therapy Patient needs Physical Therapy for a daily minimum of 1.5 hours at least 5 out of 7 days, to improve: Mobility, Strengthening, Transfers, Stretching, ROM, Endurance, Ability to manage stairs, Gait, and Balance. PHYSICAL EXAM - Gen Alert and awake Lying in bed No apparent distress Oriented to: person, time, and place - Skin No skin breakdown. No abnormalities - Eyes No abnormalities - ENMT No abnormalities - Neck No abnormalities - CVS RRR - Chest No abnormalities - Abd Soft - GI Non distended No abnormalities - No abnormalities - Ext No significant edema - MSK 4+/5 weakness in left upper and lower extremity - Neuro 4/5 strength left upper and lower extremities. - Psych No abnormalities ASSESSMENT: On 10/18/2021 Pt. presented to [facility] with sudden onset of left-side weakness.Pt. 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 was independent/mod-I in Loc omotion and Self-Care; and he had good Balance, Communication, Endurance, Safety Awareness, and Trans fers Control.Currently, he has deficits of Locomotion, Balance, Self-Care, Communication, Endurance, and Safety Awareness.Pt. is now referred to [facility] for acute in-patient re habilitation in order to maximize patient's functional independence in activities of daily living, st rength, ROM, and mobility.- Rehab Goal Patient has realistic goal of being discharged at assistance level 6-Christy to reside at Home with Pt self. MDM/PLAN: - Physical Therapy Gait dysfunction - to improve, our physical therapists will perform initial evaluation of pt's statu s upon admission and devise an individualized program for Gait Training, and Wheel Chair mobility Need for home safety evaluation - to improve, our physical therapists will perform initial evaluatio n of pt's status upon admission and devise an individualized program for Home Evaluation Need in caregiver upon discharge - to improve, our physical therapists will perform initial evaluati on of pt's status upon admission and devise an individualized program for Caregiver Training New precaution - to improve, our physical therapists will perform initial evaluation of pt's status upon admission and devise an individualized program for Patient precaution education Edema - to improve, our physical therapists will perform initial evaluation of pt's status upon admis tori and devise an individualized program for Elevation Training, and Lymphedema Therapy Poor balance - to improve, our physical therapists will perform initial evaluation of pt's status up on admission and devise an individualized program for Balance Training Poor endurance - to improve, our physical therapists will perform initial evaluation of pt's status upon admission and devise an individualized program for Endurance Training Weakness - to improve, our physical therapists will perform initial evaluation of pt's status upon a dmission and devise an individualized program for Aquatic Therapy, Neuromuscular Reeducation, and Str engthening Achieving independence - to improve, our physical therapists will perform initial evaluation of pt's status upon admission and devise an individualized program for Community Reintegration Activities - Occupational Therapy ADL deficits - to improve, our occupation therapists will perform initial evaluation of pt's status upon admission and devise an individualized program for Bathing, Bed mobility, Community Reintegratio n, Cooking, Dressing, Eating, Fine Motor Skills, Grooming, Homemaking, Kitchen Mobility, Laundry, Pat ient Education, Safety Awareness, Splinting - Positioning, Transfers(Toilet, Tub, Shower), and Wheel Chair Management Need for landcare officer - to improve, our occupation therapists will perform initial evaluation of pt's status upon admission and devise an individualized program for Caregiver Training Weakness - to improve, our occupation therapists will perform initial evaluation of pt's status upon admission and devise an individualized program for Aquatic Therapy, Balance, Endurance, UE ROM, and UE strengthening - Other See attached MAR (Medication Administration Record) - Diet Type Continue Regular - Diet - Liquid Texture Continue Regular - Tube Feed Continue N/A - Bladder care per protocol - DVT Risk due to restricted mobility and age - Skin Breakdown Risk due to restricted mobility and age - Cardiac Precaution Monitor blood pressure, heart rate, lower extremity edema, notify MD for shortness of breath or chest pain - Weight Bearing Precaution WBAT left LE - Fall Precaution Bed alarm TABS alarm Wheel chair alarm - Skin care per protocol - Diet - Solid Texture Continue Regular - Shower allowing shower for Dementia, TBI, Stroke, or others FUNCTIONAL STATUS: UPDATED AT WEEKLY TEAM CONFERENCE - Bladder Same accident frequency: 7-Ind - No accidents in the past 7 days - Bowel Same accident frequency: 7-Ind - No accidents in the past 7 days - Walking Same score based on distance walked: 0(N/A) Same score based on distance walked: 1(<=50ft) Same score based on distance walked: 2(50-149ft) - Wheelchair Same score based on distance traveled: 0(N/A) FUNCTIONAL STATUS: - Self-Care A. Eating Ind B. Grooming Ind C. Bathing sup D. Dressing - Upper sup E. Dressing - Lower sup F. Toileting sup - Sphincter Control G. Bladder control Christy H. Bowel control Christy - Transfers Control I. Bed/Chair/Wheelchair sup J. Toilet Ind K. Tub/Shower Drake - Locomotion L. Walk/Wheelchair (B) sup M. Stairs Drake - Communication N. Comprehension (B) Ind O. Expression (B) Ind - Social Cognition P. Social Interaction Ind Q. Problem Solving Ind R. Memory Ind - Endurance Good - Balance Good - Safety Awareness Good QI SCORES: - Self-Care A. Eating 04-Supervision or touching assistance B. Oral hygiene 04-Supervision or touching assistance C. Toileting hygiene 04-Supervision or touching assistance E. Shower/bathe self 03-Partial/moderate assistance F. Upper body dressing 09-Not applicable G. Lower body dressing 01-Dependent H. Putting on/taking off footwear 01-Dependent - Mobility A. Roll left and right 88-Not attempted due to medical condition or safety concerns B. Sit to lying 04-Supervision or touching assistance C. Lying to sitting on side of bed 88-Not attempted due to medical condition or safety concerns D. Sit to stand 04-Supervision or touching assistance E. Chair/sex-sc-sniqe transfer 03-Partial/moderate assistance F. Toilet transfer 03-Partial/moderate assistance G. Car transfer 03-Partial/moderate assistance I. Walk 10 feet 03-Partial/moderate assistance J. Walk 50 feet with two turns 03-Partial/moderate assistance K. Walk 150 feet 88-Not attempted due to medical condition or safety concerns L. Walking 10 feet on uneven surfaces 88-Not attempted due to medical condition or safety concerns M. 1 step (curb) 88-Not attempted due to medical condition or safety concerns N. 4 steps 88-Not attempted due to medical condition or safety concerns O. 12 steps 88-Not attempted due to medical condition or safety concerns P. Picking up object 88-Not attempted due to medical condition or safety concerns R. Wheel 50 feet with two turns 09-Not applicable S. Wheel 150 feet 09-Not applicable - Bladder and Bowel Bladder continence 0-Always continent Bowel continence 0-Always continent - Endurance Fair - Balance Fair - Safety Awareness Fair CURRENT [facility] [place]. DEFICITS: Self-Care, Endurance, Balance, Safety Awareness, and Mobility SIGNATURE PANEL: (CDT)
[2021-10-28] MEDS: MELATONIN 5 MG TABLET PO PRN (21:02)
[2021-10-28] MEDS: ATORVASTATIN 80 MG TAB PO SCH (21:02)
[2021-10-29] MEDS: METOPROLOL TAR 25 MG TAB PO SCH ×2 (08:00→20:16)
[2021-10-29] MEDS: MULTIVIT W/ MINERAL TAB PO SCH (08:18)
[2021-10-29] MEDS: ASPIRIN 81 MG CHEWABLE TABLET PO SCH (08:18)
[2021-10-29] MEDS: FLUOXETINE 20 MG CAP PO SCH (08:18)
[2021-10-29] MEDS: APIXABAN 2.5 MG TABLET PO SCH ×2 (08:18→20:18)
[2021-10-29] MEDS: terbinafine HCL 250 MG TAB PO SCH (08:18)
--- NOTE | 2021-10-29 17:07 | R.PN ---
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 SUBJECTIVE: Pt denied any depression. Pt denied any Shortness of Breath. BMP is essentially normal. Prealbumin 14.1, CBC with differential is normal. ADLs and functional transfers done with standby assistance. Comprehension activities done with 90 to 100% accuracy. VITAL SIGNS Temperature: 97.6 F SBP/DBP: 136/80 Pulse: 58 Resp: 16 MEDICATION ALLERGIES: No Known Drug Allergies (NKDA) ENVIRONMENTAL ALLERGIES: - Substance Allergies None Known - Other Allergies None Known NURSING: - Shower allowing shower - Bladder care per protocol - Skin care per protocol PRECAUTIONS: - Fall Precaution Bed alarm TABS alarm Wheel chair alarm - DVT Risk due to restricted mobility and age - Cardiac Precaution Monitor blood pressure, heart rate, lower extremity edema, notify MD for shortness of breath or chest pain - Skin Breakdown Risk due to restricted mobility and age ACTIVITIES OOB only with supervision THERAPIES: - Dietary and Nutrition Adequate Nutrition. Nutritional Education. Nutritional Supplements. - Occupational Therapy Cognitive Retraining. Patient needs Occupational Therapy for a daily minimum of 1.5 hours at least 5 out of 7 days, to improve Activities of Daily Living, including: Eating, Grooming, Bathing, Dressing, Toileting, Toilet Transfers, Community Reintegration, Higher functional activities, Adaptive Equipme nt, Splinting, Household Tasks, and Other activities as determined. Visual Perceptual Training. - Speech Therapy Expressive Language Skills. Memory Strategies. Patient needs Speech Therapy for a daily minimum of 1. 5 hours at least 5 out of 7 days, to improve: Cognition, Language Skills, and Compensatory Strategies . Receptive Language Skills. Speech Intelligibility Training. - Physical Therapy Patient needs Physical Therapy for a daily minimum of 1.5 hours at least 5 out of 7 days, to improve: Mobility, Strengthening, Transfers, Stretching, ROM, Endurance, Ability to manage stairs, Gait, and Balance. PHYSICAL EXAM - Gen Alert and awake Lying in bed No apparent distress Oriented to: person, time, and place - Skin No skin breakdown. No abnormalities - Eyes No abnormalities - ENMT No abnormalities - Neck No abnormalities - CVS RRR - Chest No abnormalities - Abd Soft - GI Non distended No abnormalities - No abnormalities - Ext No significant edema - MSK 4+/5 weakness in left upper and lower extremity - Neuro 4/5 strength left upper and lower extremities. - Psych No abnormalities ASSESSMENT: On 10/18/2021 Pt. presented to [facility] with sudden onset of left-side weakness.Pt. 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 was independent/mod-I in Loc omotion and Self-Care; and he had good Balance, Communication, Endurance, Safety Awareness, and Trans fers Control.Currently, he has deficits of Locomotion, Balance, Self-Care, Communication, Endurance, and Safety Awareness.Pt. is now referred to [facility] for acute in-patient re habilitation in order to maximize patient's functional independence in activities of daily living, st rength, ROM, and mobility.- Rehab Goal Patient has realistic goal of being discharged at assistance level 6-Christy to reside at Home with Pt self. MDM/PLAN: - Physical Therapy Gait dysfunction - to improve, our physical therapists will perform initial evaluation of pt's statu s upon admission and devise an individualized program for Gait Training, and Wheel Chair mobility Need for home safety evaluation - to improve, our physical therapists will perform initial evaluatio n of pt's status upon admission and devise an individualized program for Home Evaluation Need in caregiver upon discharge - to improve, our physical therapists will perform initial evaluati on of pt's status upon admission and devise an individualized program for Caregiver Training New precaution - to improve, our physical therapists will perform initial evaluation of pt's status upon admission and devise an individualized program for Patient precaution education Edema - to improve, our physical therapists will perform initial evaluation of pt's status upon admi ssion and devise an individualized program for Elevation Training, and Lymphedema Therapy Poor balance - to improve, our physical therapists will perform initial evaluation of pt's status up on admission and devise an individualized program for Balance Training Poor endurance - to improve, our physical therapists will perform initial evaluation of pt's status upon admission and devise an individualized program for Endurance Training Weakness - to improve, our physical therapists will perform initial evaluation of pt's status upon a dmission and devise an individualized program for Aquatic Therapy, Neuromuscular Reeducation, and Str engthening Achieving independence - to improve, our physical therapists will perform initial evaluation of pt's status upon admission and devise an individualized program for Community Reintegration Activities - Occupational Therapy ADL deficits - to improve, our occupation therapists will perform initial evaluation of pt's status upon admission and devise an individualized program for Bathing, Bed mobility, Community Reintegratio n, Cooking, Dressing, Eating, Fine Motor Skills, Grooming, Homemaking, Kitchen Mobility, Laundry, Pat ient Education, Safety Awareness, Splinting - Positioning, Transfers(Toilet, Tub, Shower), and Wheel Chair Management Need for elderly caregiver - to improve, our occupation therapists will perform initial evaluation of pt's status upon admission and devise an individualized program for Caregiver Training Weakness - to improve, our occupation therapists will perform initial evaluation of pt's status upon admission and devise an individualized program for Aquatic Therapy, Balance, Endurance, UE ROM, and UE strengthening - Other See attached MAR (Medication Administration Record) - Diet Type Continue Regular - Diet - Liquid Texture Continue Regular - Tube Feed Continue N/A - Bladder care per protocol - DVT Risk due to restricted mobility and age - Skin Breakdown Risk due to restricted mobility and age - Cardiac Precaution Monitor blood pressure, heart rate, lower extremity edema, notify MD for shortness of breath or ches t pain - Weight Bearing Precaution WBAT left LE - Fall Precaution Bed alarm TABS alarm Wheel chair alarm - Skin care per protocol - Diet - Solid Texture Continue Regular - Shower allowing shower for Dementia, TBI, Stroke, or others FUNCTIONAL STATUS: UPDATED AT WEEKLY TEAM CONFERENCE - Bladder Same accident frequency: 7-Ind - No accidents in the past 7 days - Bowel Same accident frequency: 7-Ind - No accidents in the past 7 days - Walking Same score based on distance walked: 0(N/A) Same score based on distance walked: 1(<=50ft) Same score based on distance walked: 2(50-149ft) - Wheelchair Same score based on distance traveled: 0(N/A) FUNCTIONAL STATUS: - Self-Care A. Eating Ind B. Grooming Ind C. Bathing sup D. Dressing - Upper sup E. Dressing - Lower sup F. Toileting sup - Sphincter Control G. Bladder control Christy H. Bowel control Christy - Transfers Control I. Bed/Chair/Wheelchair sup J. Toilet Ind K. Tub/Shower Drake - Locomotion L. Walk/Wheelchair (B) sup M. Stairs Drake - Communication N. Comprehension (B) Ind O. Expression (B) Ind - Social Cognition P. Social Interaction Ind Q. Problem Solving Ind R. Memory Ind - Endurance Good - Balance Good - Safety Awareness Good QI SCORES: - Self-Care A. Eating 04-Supervision or touching assistance B. Oral hygiene 04-Supervision or touching assistance C. Toileting hygiene 04-Supervision or touching assistance E. Shower/bathe self 03-Partial/moderate assistance F. Upper body dressing 09-Not applicable G. Lower body dressing 01-Dependent H. Putting on/taking off footwear 01-Dependent - Mobility A. Roll left and right 88-Not attempted due to medical condition or safety concerns B. Sit to lying 04-Supervision or touching assistance C. Lying to sitting on side of bed 88-Not attempted due to medical condition or safety concerns D. Sit to stand 04-Supervision or touching assistance E. Chair/guz-md-[id number] transfer 03-Partial/moderate assistance F. Toilet transfer 03-Partial/moderate assistance G. Car transfer 03-Partial/moderate assistance I. Walk 10 feet 03-Partial/moderate assistance J. Walk 50 feet with two turns 03-Partial/moderate assistance K. Walk 150 feet 88-Not attempted due to medical condition or safety concerns L. Walking 10 feet on uneven surfaces 88-Not attempted due to medical condition or safety concerns M. 1 step (curb) 88-Not attempted due to medical condition or safety concerns N. 4 steps 88-Not attempted due to medical condition or safety concerns O. 12 steps 88-Not attempted due to medical condition or safety concerns P. Picking up object 88-Not attempted due to medical condition or safety concerns R. Wheel 50 feet with two turns 09-Not applicable S. Wheel 150 feet 09-Not applicable - Bladder and Bowel Bladder continence 0-Always continent Bowel continence 0-Always continent - Endurance Fair - Balance Fair - Safety Awareness Fair CURRENT [facility]. DEFICITS: Self-Care, Endurance, Balance, Safety Awareness, and Mobility SIGNATURE PANEL: (CDT)
[2021-10-29] MEDS: MELATONIN 5 MG TABLET PO PRN (20:16)
[2021-10-29] MEDS: ATORVASTATIN 80 MG TAB PO SCH (20:18)
[2021-10-29] MEDS: ENSURE HIGH PROTEIN 237 ML CAN PO SCH (20:18)
[2021-10-30 04:50] LABS: Absolute Lymphocytes (CBC) 2.8 K/uL (0.7-4.9); Hematocrit 39.4 % (39.6-49.0); Lymphocytes % 32.4 % (15.3-44.8); MPV 8.1 fL (7.6-11.3); RBC Red Blood Cell Count 4.13 M/uL (4.33-5.43)
[2021-10-30 05:07] LABS: Albumin 3.3 g/dL (3.4-5.0); Magnesium 2.1 mg/dL (1.8-2.4); Potassium 3.9 mmol/L (3.5-5.1); Prealbumin 19.2 mg/dL (20-40)
[2021-10-30] MEDS: APIXABAN 2.5 MG TABLET PO SCH ×2 (07:54→20:30)
[2021-10-30] MEDS: MULTIVIT W/ MINERAL TAB PO SCH (07:54)
[2021-10-30] MEDS: FLUOXETINE 20 MG CAP PO SCH (07:54)
[2021-10-30] MEDS: terbinafine HCL 250 MG TAB PO SCH (07:54)
[2021-10-30] MEDS: ENSURE HIGH PROTEIN 237 ML CAN PO SCH ×2 (07:54→21:18)
[2021-10-30] MEDS: ASPIRIN 81 MG CHEWABLE TABLET PO SCH (07:54)
[2021-10-30] MEDS: METOPROLOL TAR 25 MG TAB PO SCH ×2 (07:55→21:14)
[2021-10-30] MEDS: MELATONIN 5 MG TABLET PO PRN (21:14)
[2021-10-30] MEDS: ATORVASTATIN 80 MG TAB PO SCH (21:14)
[2021-10-31] MEDS: APIXABAN 2.5 MG TABLET PO SCH ×2 (07:17→20:20)
[2021-10-31] MEDS: FLUOXETINE 20 MG CAP PO SCH (07:44)
[2021-10-31] MEDS: MULTIVIT W/ MINERAL TAB PO SCH (07:44)
[2021-10-31] MEDS: ASPIRIN 81 MG CHEWABLE TABLET PO SCH (07:44)
[2021-10-31] MEDS: terbinafine HCL 250 MG TAB PO SCH (07:44)
[2021-10-31] MEDS: METOPROLOL TAR 25 MG TAB PO SCH ×2 (07:45→20:00)
[2021-10-31] MEDS: ENSURE HIGH PROTEIN 237 ML CAN PO SCH ×2 (07:52→20:20)
--- NOTE | 2021-10-31 09:49 | P.RH.PN ---
Estimated Length of Stay: 14 Expected Discharge Date: 11/05/21 Discharge Disposition Plan: Home Family Support: Yes Long-Term Goal: Mobility, Transfers, Self Care Vital Signs: Last Vital Signs Temp 97.0 F 10/31/21 07:55 Pulse 52 10/31/21 07:55 Resp 20 10/31/21 07:55 BP 104/73 10/31/21 07:55 Pulse Ox 98 10/31/21 07:55 Laboratory: Laboratory Last Values WBC 8.8 K/uL (4.3-10.9) 10/30/21 04:16 RBC 4.13 M/uL (4.33-5.43) L 10/30/21 04:16 Hgb 13.6 g/dL (13.6-17.9) 10/30/21 04:16 Hct 39.4 % (39.6-49.0) L 10/30/21 04:16 MCV 95.3 fL (80-100) 10/30/21 04:16 MCH 33.0 pg (27.0-35.0) 10/30/21 04:16 MCHC 34.6 g/dL (32.0-36.0) 10/30/21 04:16 RDW 13.3 % (12.1-15.2) 10/30/21 04:16 Plt Count 226 K/uL (152-406) 10/30/21 04:16 MPV 8.1 fL (7.6-11.3) 10/30/21 04:16 Neutrophils % 54.0 % (41.7-73.7) 10/30/21 04:16 Lymphocytes % 32.4 % (15.3-44.8) 10/30/21 04:16 Monocytes % 10.2 % (3.3-12.3) 10/30/21 04:16 Eosinophils % 2.4 % (0-4.4) 10/30/21 04:16 Basophils % 1.0 % (0-1.3) 10/30/21 04:16 Absolute Neutrophils 4.7 K/uL (1.8-8.0) 10/30/21 04:16 Absolute Lymphocytes 2.8 K/uL (0.7-4.9) 10/30/21 04:16 Absolute Monocytes 0.9 K/uL (0.1-1.3) 10/30/21 04:16 Absolute Eosinophils 0.2 K/uL (0-0.5) 10/30/21 04:16 Absolute Basophils 0.1 K/uL (0-0.5) 10/30/21 04:16 Sodium 142 mmol/L (136-145) 10/30/21 04:16 Potassium 3.9 mmol/L (3.5-5.1) 10/30/21 04:16 Chloride 111 mmol/L (98-107) H 10/30/21 04:16 Carbon Dioxide 28 mmol/L (21-32) 10/30/21 04:16 Anion Gap 6.9 mEq/L (5.0-15.0) 10/30/21 04:16 BUN 28 mg/dL (7-18) H 10/30/21 04:16 Creatinine 1.22 mg/dL (0.55-1.3) 10/30/21 04:16 Est GFR (CKD-EPI) 68 ml/min (=/>90) L 10/30/21 04:16 Glucose 99 mg/dL (74-106) 10/30/21 04:16 Calcium 8.9 mg/dL (8.5-10.1) 10/30/21 04:16 Magnesium 2.1 mg/dL (1.8-2.4) 10/30/21 04:16 Albumin 3.3 g/dL (3.4-5.0) L 10/30/21 04:16 Prealbumin 19.2 mg/dL (20-40) L 10/30/21 04:16 Urine Color Yellow (Yellow) 10/23/21 21:54 Urine Appearance Clear (Clear) 10/23/21 21:54 Urine pH 5.5 (5.0-7.0) 10/23/21 21:54 Ur Specific [place] 1.025 (1.005-1.030) 10/23/21 21:54 Glucose (UA)(Auto) Negative (Negative) 10/23/21 21:54 Urine Ketones Negative (Negative) 10/23/21 21:54 Urine Blood Negative (Negative) 10/23/21 21:54 Urine Nitrite Negative (Negative) 10/23/21 21:54 Urine Bilirubin Negative (Negative) 10/23/21 21:54 Urine Urobilinogen 0.2 mg/dL (0.2-1.0) 10/23/21 21:54 Ur Leukocyte Esterase Negative (Negative) 10/23/21 21:54 Urine RBC <5 /HPF (NONE SEEN) 10/22/21 22:56 Urine WBC <5 /HPF (<5) 10/22/21 22:56 Ur Squamous Epith Cells APPARATUS OPERATOR 10/22/21 22:56 Ur Urothelial Cells <5 /HPF (NONE SEEN) 10/22/21 22:56 Calcium Oxalate Crystal Cancelled 10/22/21 22:10 Uric Acid Crystals Cancelled 10/22/21 22:10 Triple Phos Crystals Cancelled 10/22/21 22:10 Other Crystals Cancelled 10/22/21 22:10 Amorphous Sediment Cancelled 10/22/21 22:10 Glitter Cells Cancelled 10/22/21 22:10 Urine Bacteria <20 /HPF (NONE SEEN) 10/22/21 22:56 Hyaline Casts Cancelled 10/22/21 22:10 Fine Granular Casts Cancelled 10/22/21 22:10 Coarse Granular Casts Cancelled 10/22/21 22:10 Waxy Casts Cancelled 10/22/21 22:10 RBC Casts Cancelled 10/22/21 22:10 WBC Casts Cancelled 10/22/21 22:10 Urine Mucus Cancelled 10/22/21 22:10 Urine Other Cancelled 10/22/21 22:10 Urine Trichomonas Cancelled 10/22/21 22:10 Urine Yeast Cancelled 10/22/21 22:10 Ur Yeast w Hyphae Cancelled 10/22/21 22:10 Urine Yeast (Budding) Cancelled 10/22/21 22:10 Urine Sperm Cancelled 10/22/21 22:10 Urine Culture Reflexed Not needed 10/22/21 22:56 Urine Total Volume Cancelled 10/22/21 22:10 Urine Total Protein Negative (Negative) 10/23/21 21:54 SARS-CoV-2 Rap RNA(RT-PCR) Negative (NEGATIVE) 10/29/21 12:10 Weight: 188 lb Wound Present: No Closed Surgical Incision Present: No Negative Pressure Wound Therapy Present: No Physician Update: Labs were reviewed. Bed mobility, sit to stand SBA, 250' with rolling walker and SBA. 20 steps with CGA. SBA with most ADLs. Min assistance for bathing, impulsive. Summary: Patient's care plan and shelter goals have been reviewed and revised as necessary. Please see the Rehabilitation Signature page for all necessary signatures.
[2021-10-31] MEDS: CYANOCOBALAMIN 1000MCG/ML INJ IM ONE ×5 (12:00→20:19)
[2021-10-31] MEDS: ATORVASTATIN 80 MG TAB PO SCH (20:21)
[2021-10-31] MEDS: DOCUSATE NA/SENNA CONC 1 TAB PO SCH (20:21)
[2021-10-31] MEDS: MELATONIN 5 MG TABLET PO PRN (20:22)
[2021-11-01] MEDS: METOPROLOL TAR 25 MG TAB PO SCH ×2 (09:13→21:15)
[2021-11-01] MEDS: terbinafine HCL 250 MG TAB PO SCH (09:13)
[2021-11-01] MEDS: APIXABAN 2.5 MG TABLET PO SCH ×2 (09:14→21:00)
[2021-11-01] MEDS: ASPIRIN 81 MG CHEWABLE TABLET PO SCH (09:14)
[2021-11-01] MEDS: MULTIVIT W/ MINERAL TAB PO SCH (09:14)
[2021-11-01] MEDS: FLUOXETINE 20 MG CAP PO SCH (09:14)
[2021-11-01] MEDS: ENSURE HIGH PROTEIN 237 ML CAN PO SCH ×2 (09:15→21:17)
[2021-11-01] MEDS: MELATONIN 5 MG TABLET PO PRN (21:15)
[2021-11-01] MEDS: ATORVASTATIN 80 MG TAB PO SCH (21:16)
[2021-11-01] MEDS: DOCUSATE NA/SENNA CONC 1 TAB PO SCH (21:16)
[2021-11-02] MEDS: METOPROLOL TAR 25 MG TAB PO SCH ×2 (08:41→20:00)
[2021-11-02] MEDS: ASPIRIN 81 MG CHEWABLE TABLET PO SCH (08:42)
[2021-11-02] MEDS: ENSURE HIGH PROTEIN 237 ML CAN PO SCH ×2 (08:42→20:01)
[2021-11-02] MEDS: MULTIVIT W/ MINERAL TAB PO SCH (08:42)
[2021-11-02] MEDS: APIXABAN 2.5 MG TABLET PO SCH ×2 (08:42→20:00)
[2021-11-02] MEDS: terbinafine HCL 250 MG TAB PO SCH (08:42)
[2021-11-02] MEDS: FLUOXETINE 20 MG CAP PO SCH (08:42)
[2021-11-02] MEDS: MELATONIN 5 MG TABLET PO PRN (19:59)
[2021-11-02] MEDS: DOCUSATE NA/SENNA CONC 1 TAB PO SCH (20:00)
[2021-11-02] MEDS: ATORVASTATIN 80 MG TAB PO SCH (20:00)
[2021-11-03] MEDS: APIXABAN 2.5 MG TABLET PO SCH ×2 (07:38→21:00)
[2021-11-03] MEDS: MULTIVIT W/ MINERAL TAB PO SCH (08:08)
[2021-11-03] MEDS: ASPIRIN 81 MG CHEWABLE TABLET PO SCH (08:08)
[2021-11-03] MEDS: METOPROLOL TAR 25 MG TAB PO SCH ×2 (08:09→21:00)
[2021-11-03] MEDS: terbinafine HCL 250 MG TAB PO SCH (08:09)
[2021-11-03] MEDS: FLUOXETINE 20 MG CAP PO SCH (08:09)
[2021-11-03] MEDS: ENSURE HIGH PROTEIN 237 ML CAN PO SCH ×2 (08:11→21:01)
--- NOTE | 2021-11-03 11:08 | R.PN ---
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 SUBJECTIVE: Pt denied any depression. Pt denied any Shortness of Breath. BMP is essentially normal. Prealbumin 19.2, CBC with differential is essentially normal. ADLs and functional transfers done with standby assistance. Comprehension activities done with 90 to 100% accuracy. VITAL SIGNS Temperature: 98.7 F SBP/DBP: 149/83 Pulse: 46 Resp: 16 MEDICATION ALLERGIES: No Known Drug Allergies (NKDA) ENVIRONMENTAL ALLERGIES: - Substance Allergies None Known - Other Allergies None Known NURSING: - Shower allowing shower - Bladder care per protocol - Skin care per protocol PRECAUTIONS: - Fall Precaution Bed alarm TABS alarm Wheel chair alarm - DVT Risk due to restricted mobility and age - Cardiac Precaution Monitor blood pressure, heart rate, lower extremity edema, notify MD for shortness of breath or chest pain - Skin Breakdown Risk due to restricted mobility and age ACTIVITIES OOB only with supervision THERAPIES: - Dietary and Nutrition Adequate Nutrition. Nutritional Education. Nutritional Supplements. - Occupational Therapy Cognitive Retraining. Patient needs Occupational Therapy for a daily minimum of 1.5 hours at least 5 out of 7 days, to improve Activities of Daily Living, including: Eating, Grooming, Bathing, Dressing, Toileting, Toilet Transfers, Community Reintegration, Higher functional activities, Adaptive Equipme nt, Splinting, Household Tasks, and Other activities as determined. Visual Perceptual Training. - Speech Therapy Expressive Language Skills. Memory Strategies. Patient needs Speech Therapy for a daily minimum of 1. 5 hours at least 5 out of 7 days, to improve: Cognition, Language Skills, and Compensatory Strategies . Receptive Language Skills. Speech Intelligibility Training. - Physical Therapy Patient needs Physical Therapy for a daily minimum of 1.5 hours at least 5 out of 7 days, to improve: Mobility, Strengthening, Transfers, Stretching, ROM, Endurance, Ability to manage stairs, Gait, and Balance. PHYSICAL EXAM - Gen Alert and awake Lying in bed No apparent distress Oriented to: person, time, and place - Skin No skin breakdown. No abnormalities - Eyes No abnormalities - ENMT No abnormalities - Neck No abnormalities - CVS RRR - Chest No abnormalities - Abd Soft - GI Non distended No abnormalities - No abnormalities - Ext No significant edema - MSK 4+/5 weakness in left upper and lower extremity - Neuro 4/5 strength left upper and lower extremities. - Psych No abnormalities ASSESSMENT: On 10/18/[address] [facility] with sudden onset of left-side weakness.Pt. is a 61 yo male of unknown race.On 10/18/2021 he [address] to 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 was independent/mod-I in Loc omotion and Self-Care; and he had good Balance, Communication, Endurance, Safety Awareness, and Trans fers Control.Currently, he has deficits of Locomotion, Balance, Self-Care, Communication, Endurance, and Safety Awareness.Pt. is now referred to [facility] for acute in-patient re habilitation in order to maximize patient's functional independence in activities of daily living, st rength, ROM, and mobility.- Rehab Goal Patient has realistic goal of being discharged at assistance level 6-Christy to reside at Home with Pt self. MDM/PLAN: - Physical Therapy Gait dysfunction - to improve, our physical therapists will perform initial evaluation of pt's statu s upon admission and devise an individualized program for Gait Training, and Wheel Chair mobility Need for home safety evaluation - to improve, our physical therapists will perform initial evaluatio n of pt's status upon admission and devise an individualized program for Home Evaluation Need in caregiver upon discharge - to improve, our physical therapists will perform initial evaluati on of pt's status upon admission and devise an individualized program for Caregiver Training New precaution - to improve, our physical therapists will perform initial evaluation of pt's status upon admission and devise an individualized program for Patient precaution education Edema - to improve, our physical therapists will perform initial evaluation of pt's status upon admi ssion and devise an individualized program for Elevation Training, and Lymphedema Therapy Poor balance - to improve, our physical therapists will perform initial evaluation of pt's status up on admission and devise an individualized program for Balance Training Poor endurance - to improve, our physical therapists will perform initial evaluation of pt's status upon admission and devise an individualized program for Endurance Training Weakness - to improve, our physical therapists will perform initial evaluation of pt's status upon a dmission and devise an individualized program for Aquatic Therapy, Neuromuscular Reeducation, and Str engthening Achieving independence - to improve, our physical therapists will perform initial evaluation of pt's status upon admission and devise an individualized program for Community Reintegration Activities - Occupational Therapy ADL deficits - to improve, our occupation therapists will perform initial evaluation of pt's status upon admission and devise an individualized program for Bathing, Bed mobility, Community Reintegratio n, Cooking, Dressing, Eating, Fine Motor Skills, Grooming, Homemaking, Kitchen Mobility, Laundry, Pat ient Education, Safety Awareness, Splinting - Positioning, Transfers(Toilet, Tub, Shower), and Wheel Chair Management Need for day care director - to improve, our occupation therapists will perform initial evaluation of pt's status upon admission and devise an individualized program for Caregiver Training Weakness - to improve, our occupation therapists will perform initial evaluation of pt's status upon admission and devise an individualized program for Aquatic Therapy, Balance, Endurance, UE ROM, and UE strengthening - Other See attached MAR (Medication Administration Record) - Diet Type Continue Regular - Diet - Liquid Texture Continue Regular - Tube Feed Continue N/A - Bladder care per protocol - DVT Risk due to restricted mobility and age - Skin Breakdown Risk due to restricted mobility and age - Cardiac Precaution Monitor blood pressure, heart rate, lower extremity edema, notify MD for shortness of breath or ches t pain - Weight Bearing Precaution WBAT left LE - Fall Precaution Bed alarm TABS alarm Wheel chair alarm - Skin care per protocol - Diet - Solid Texture Continue Regular - Shower allowing shower for Dementia, TBI, Stroke, or others FUNCTIONAL STATUS: UPDATED AT WEEKLY TEAM CONFERENCE - Bladder Same accident frequency: 7-Ind - No accidents in the past 7 days - Bowel Same accident frequency: 7-Ind - No accidents in the past 7 days - Walking Same score based on distance walked: 0(N/A) Same score based on distance walked: 1(<=50ft) Same score based on distance walked: 2(50-149ft) - Wheelchair Same score based on distance traveled: 0(N/A) FUNCTIONAL STATUS: - Self-Care A. Eating Ind B. Grooming Ind C. Bathing sup D. Dressing - Upper sup E. Dressing - Lower sup F. Toileting sup - Sphincter Control G. Bladder control Christy H. Bowel control Christy - Transfers Control I. Bed/Chair/Wheelchair sup J. Toilet Ind K. Tub/Shower Drake - Locomotion L. Walk/Wheelchair (B) sup M. Stairs Drake - Communication N. Comprehension (B) Ind O. Expression (B) Ind - Social Cognition P. Social Interaction Ind Q. Problem Solving Ind R. Memory Ind - Endurance Good - Balance Good - Safety Awareness Good QI SCORES: - Self-Care A. Eating 04-Supervision or touching assistance B. Oral hygiene 04-Supervision or touching assistance C. Toileting hygiene 04-Supervision or touching assistance E. Shower/bathe self 03-Partial/moderate assistance F. Upper body dressing 09-Not applicable G. Lower body dressing 01-Dependent H. Putting on/taking off footwear 01-Dependent - Mobility A. Roll left and right 88-Not attempted due to medical condition or safety concerns B. Sit to lying 04-Supervision or touching assistance C. Lying to sitting on side of bed 88-Not attempted due to medical condition or safety concerns D. Sit to stand 04-Supervision or touching assistance E. Chair/[id number] transfer 03-Partial/moderate assistance F. Toilet transfer 03-Partial/moderate assistance G. Car transfer 03-Partial/moderate assistance I. Walk 10 feet 03-Partial/moderate assistance J. Walk 50 feet with two turns 03-Partial/moderate assistance K. Walk 150 feet 88-Not attempted due to medical condition or safety concerns L. Walking 10 feet on uneven surfaces 88-Not attempted due to medical condition or safety concerns M. 1 step (curb) 88-Not attempted due to medical condition or safety concerns N. 4 steps 88-Not attempted due to medical condition or safety concerns O. 12 steps 88-Not attempted due to medical condition or safety concerns P. Picking up object 88-Not attempted due to medical condition or safety concerns R. Wheel 50 feet with two turns 09-Not applicable S. Wheel 150 feet 09-Not applicable - Bladder and Bowel Bladder continence 0-Always continent Bowel continence 0-Always continent - Endurance Fair - Balance Fair - Safety Awareness Fair CURRENT [facility]. DEFICITS: Self-Care, Endurance, Balance, Safety Awareness, and Mobility SIGNATURE PANEL: (CDT)
--- NOTE | 2021-11-03 17:23 | R.PN ---
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 SUBJECTIVE: Pt denied any depression. Pt denied any Shortness of Breath. BMP is essentially normal. Prealbumin 19.2, CBC with differential is essentially normal. ADLs and functional transfers done with modified independence. Comprehension/cognitive exercises done with 95% accuracy. Ambulated 1000' with contact guard assistance using a rolling walker and 60' with a quad cane. VITAL SIGNS Temperature: 97.6 F SBP/DBP: 140/84 Pulse: 54 Resp: 16 MEDICATION ALLERGIES: No Known Drug Allergies (NKDA) ENVIRONMENTAL ALLERGIES: - Substance Allergies None Known - Other Allergies None Known NURSING: - Shower allowing shower - Bladder care per protocol - Skin care per protocol PRECAUTIONS: - Fall Precaution Bed alarm TABS alarm Wheel chair alarm - DVT Risk due to restricted mobility and age - Cardiac Precaution Monitor blood pressure, heart rate, lower extremity edema, notify MD for shortness of breath or chest pain - Skin Breakdown Risk due to restricted mobility and age ACTIVITIES OOB only with supervision THERAPIES: - Dietary and Nutrition Adequate Nutrition. Nutritional Education. Nutritional Supplements. - Occupational Therapy Cognitive Retraining. Patient needs Occupational Therapy for a daily minimum of 1.5 hours at least 5 out of 7 days, to improve Activities of Daily Living, including: Eating, Grooming, Bathing, Dressing, Toileting, Toilet Transfers, Community Reintegration, Higher functional activities, Adaptive Equipme nt, Splinting, Household Tasks, and Other activities as determined. Visual Perceptual Training. - Speech Therapy Expressive Language Skills. Memory Strategies. Patient needs Speech Therapy for a daily minimum of 1. 5 hours at least 5 out of 7 days, to improve: Cognition, Language Skills, and Compensatory Strategies . Receptive Language Skills. Speech Intelligibility Training. - Physical Therapy Patient needs Physical Therapy for a daily minimum of 1.5 hours at least 5 out of 7 days, to improve: Mobility, Strengthening, Transfers, Stretching, ROM, Endurance, Ability to manage stairs, Gait, and Balance. PHYSICAL EXAM - Gen Alert and awake Lying in bed No apparent distress Oriented to: person, time, and place - Skin No skin breakdown. No abnormalities - Eyes No abnormalities - ENMT No abnormalities - Neck No abnormalities - CVS RRR - Chest No abnormalities - Abd Soft - GI Non distended No abnormalities - No abnormalities - Ext No significant edema - MSK 4+/5 weakness in left upper and lower extremity - Neuro 4/5 strength left upper and lower extremities. - Psych No abnormalities ASSESSMENT: On 10/18/2021 Pt. presented to [facility] with sudden onset of left-side weakness.Pt. 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 was independent/mod-I in Loc omotion and Self-Care; and he had good Balance, Communication, Endurance, Safety Awareness, and Trans fers Control.Currently, he has deficits of Locomotion, Balance, Self-Care, Communication, Endurance, and Safety Awareness.Pt. is now referred to [facility] for acute in-patient re habilitation in order to maximize patient's functional independence in activities of daily living, st rength, ROM, and mobility.- Rehab Goal Patient has realistic goal of being discharged at assistance level 6-Christy to reside at Home with Pt self. MDM/PLAN: - Physical Therapy Gait dysfunction - to improve, our physical therapists will perform initial evaluation of pt's statu s upon admission and devise an individualized program for Gait Training, and Wheel Chair mobility Need for home safety evaluation - to improve, our physical therapists will perform initial evaluatio n of pt's status upon admission and devise an individualized program for Home Evaluation Need in caregiver upon discharge - to improve, our physical therapists will perform initial evaluati on of pt's status upon admission and devise an individualized program for Caregiver Training New precaution - to improve, our physical therapists will perform initial evaluation of pt's status upon admission and devise an individualized program for Patient precaution education Edema - to improve, our physical therapists will perform initial evaluation of pt's status upon admi ssion and devise an individualized program for Elevation Training, and Lymphedema Therapy Poor balance - to improve, our physical therapists will perform initial evaluation of pt's status up on admission and devise an individualized program for Balance Training Poor endurance - to improve, our physical therapists will perform initial evaluation of pt's status upon admission and devise an individualized program for Endurance Training Weakness - to improve, our physical therapists will perform initial evaluation of pt's status upon a dmission and devise an individualized program for Aquatic Therapy, Neuromuscular Reeducation, and Str engthening Achieving independence - to improve, our physical therapists will perform initial evaluation of pt's status upon admission and devise an individualized program for Community Reintegration Activities - Occupational Therapy ADL deficits - to improve, our occupation therapists will perform initial evaluation of pt's status upon admission and devise an individualized program for Bathing, Bed mobility, Community Reintegratio n, Cooking, Dressing, Eating, Fine Motor Skills, Grooming, Homemaking, Kitchen Mobility, Laundry, Pat ient Education, Safety Awareness, Splinting - Positioning, Transfers(Toilet, Tub, Shower), and Wheel Chair Management Need for rn primary care - to improve, our occupation therapists will perform initial evaluation of pt's status upon admission and devise an individualized program for Caregiver Training Weakness - to improve, our occupation therapists will perform initial evaluation of pt's status upon admission and devise an individualized program for Aquatic Therapy, Balance, Endurance, UE ROM, and UE strengthening - Other See attached MAR (Medication Administration Record) - Diet Type Continue Regular - Diet - Liquid Texture Continue Regular - Tube Feed Continue N/A - Bladder care per protocol - DVT Risk due to restricted mobility and age - Skin Breakdown Risk due to restricted mobility and age - Cardiac Precaution Monitor blood pressure, heart rate, lower extremity edema, notify MD for shortness of breath or ches t pain - Weight Bearing Precaution WBAT left LE - Fall Precaution Bed alarm TABS alarm Wheel chair alarm - Skin care per protocol - Diet - Solid Texture Continue Regular - Shower allowing shower for Dementia, TBI, Stroke, or others FUNCTIONAL STATUS: UPDATED AT WEEKLY TEAM CONFERENCE - Bladder Same accident frequency: 7-Ind - No accidents in the past 7 days - Bowel Same accident frequency: 7-Ind - No accidents in the past 7 days - Walking Same score based on distance walked: 0(N/A) Same score based on distance walked: 1(<=50ft) Same score based on distance walked: 2(50-149ft) - Wheelchair Same score based on distance traveled: 0(N/A) FUNCTIONAL STATUS: - Self-Care A. Eating Ind B. Grooming Ind C. Bathing sup D. Dressing - Upper sup E. Dressing - Lower sup F. Toileting sup - Sphincter Control G. Bladder control Christy H. Bowel control Christy - Transfers Control I. Bed/Chair/Wheelchair sup J. Toilet Ind K. Tub/Shower Drake - Locomotion L. Walk/Wheelchair (B) sup M. Stairs Drake - Communication N. Comprehension (B) Ind O. Expression (B) Ind - Social Cognition P. Social Interaction Ind Q. Problem Solving Ind R. Memory Ind - Endurance Good - Balance Good - Safety Awareness Good QI SCORES: - Self-Care A. Eating 04-Supervision or touching assistance B. Oral hygiene 04-Supervision or touching assistance C. Toileting hygiene 04-Supervision or touching assistance E. Shower/bathe self 03-Partial/moderate assistance F. Upper body dressing 09-Not applicable G. Lower body dressing 01-Dependent H. Putting on/taking off footwear 01-Dependent - Mobility A. Roll left and right 88-Not attempted due to medical condition or safety concerns B. Sit to lying 04-Supervision or touching assistance C. Lying to sitting on side of bed 88-Not attempted due to medical condition or safety concerns D. Sit to stand 04-Supervision or touching assistance E. Chair/[id number] transfer 03-Partial/moderate assistance F. Toilet transfer 03-Partial/moderate assistance G. Car transfer 03-Partial/moderate assistance I. Walk 10 feet 03-Partial/moderate assistance J. Walk 50 feet with two turns 03-Partial/moderate assistance K. Walk 150 feet 88-Not attempted due to medical condition or safety concerns L. Walking 10 feet on uneven surfaces 88-Not attempted due to medical condition or safety concerns M. 1 step (curb) 88-Not attempted due to medical condition or safety concerns N. 4 steps 88-Not attempted due to medical condition or safety concerns O. 12 steps 88-Not attempted due to medical condition or safety concerns P. Picking up object 88-Not attempted due to medical condition or safety concerns R. Wheel 50 feet with two turns 09-Not applicable S. Wheel 150 feet 09-Not applicable - Bladder and Bowel Bladder continence 0-Always continent Bowel continence 0-Always continent - Endurance Fair - Balance Fair - Safety Awareness Fair CURRENT [facility]. DEFICITS: Self-Care, Endurance, Balance, Safety Awareness, and Mobility SIGNATURE PANEL: (CDT)
[2021-11-03] MEDS: MELATONIN 5 MG TABLET PO PRN (21:01)
[2021-11-03] MEDS: DOCUSATE NA/SENNA CONC 1 TAB PO SCH (21:01)
[2021-11-03] MEDS: ATORVASTATIN 80 MG TAB PO SCH (21:01)
[2021-11-04] MEDS: APIXABAN 2.5 MG TABLET PO SCH ×2 (07:43→19:28)
[2021-11-04] MEDS: ASPIRIN 81 MG CHEWABLE TABLET PO SCH (07:43)
[2021-11-04] MEDS: MULTIVIT W/ MINERAL TAB PO SCH (07:43)
[2021-11-04] MEDS: FLUOXETINE 20 MG CAP PO SCH (07:43)
[2021-11-04] MEDS: terbinafine HCL 250 MG TAB PO SCH (07:43)
[2021-11-04] MEDS: ENSURE HIGH PROTEIN 237 ML CAN PO SCH ×2 (07:43→18:51)
[2021-11-04] MEDS: METOPROLOL TAR 25 MG TAB PO SCH ×2 (07:44→19:28)
--- NOTE | 2021-11-04 18:18 | R.PN ---
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 SUBJECTIVE: Pt denied any depression. Pt denied any Shortness of Breath. BMP is essentially normal. Prealbumin 19.2, CBC with differential is essentially normal. ADLs and functional transfers done with modified independence. Comprehension/cognitive exercises done with 95% accuracy. Ambulated 1000' with contact guard assistance using a rolling walker on outdoor and indoor surfaces. VITAL SIGNS Temperature: 97.4 F SBP/DBP: 140/83 Pulse: 48 Resp: 16 MEDICATION ALLERGIES: No Known Drug Allergies (NKDA) ENVIRONMENTAL ALLERGIES: - Substance Allergies None Known - Other Allergies None Known NURSING: - Shower allowing shower - Bladder care per protocol - Skin care per protocol PRECAUTIONS: - Fall Precaution Bed alarm TABS alarm Wheel chair alarm - DVT Risk due to restricted mobility and age - Cardiac Precaution Monitor blood pressure, heart rate, lower extremity edema, notify MD for shortness of breath or chest pain - Skin Breakdown Risk due to restricted mobility and age ACTIVITIES OOB only with supervision THERAPIES: - Dietary and Nutrition Adequate Nutrition. Nutritional Education. Nutritional Supplements. - Occupational Therapy Cognitive Retraining. Patient needs Occupational Therapy for a daily minimum of 1.5 hours at least 5 out of 7 days, to improve Activities of Daily Living, including: Eating, Grooming, Bathing, Dressing, Toileting, Toilet Transfers, Community Reintegration, Higher functional activities, Adaptive Equipme nt, Splinting, Household Tasks, and Other activities as determined. Visual Perceptual Training. - Speech Therapy Expressive Language Skills. Memory Strategies. Patient needs Speech Therapy for a daily minimum of 1. 5 hours at least 5 out of 7 days, to improve: Cognition, Language Skills, and Compensatory Strategies . Receptive Language Skills. Speech Intelligibility Training. - Physical Therapy Patient needs Physical Therapy for a daily minimum of 1.5 hours at least 5 out of 7 days, to improve: Mobility, Strengthening, Transfers, Stretching, ROM, Endurance, Ability to manage stairs, Gait, and Balance. PHYSICAL EXAM - Gen Alert and awake Lying in bed No apparent distress Oriented to: person, time, and place - Skin No skin breakdown. No abnormalities - Eyes No abnormalities - ENMT No abnormalities - Neck No abnormalities - CVS RRR - Chest No abnormalities - Abd Soft - GI Non distended No abnormalities - No abnormalities - Ext No significant edema - MSK 4+/5 weakness in left upper and lower extremity - Neuro 4/5 strength left upper and lower extremities. - Psych No abnormalities ASSESSMENT: On 10/18/2021 Pt. presented to [facility] with sudden onset of left-side weakness.Pt. 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 was independent/mod-I in Loc omotion and Self-Care; and he had good Balance, Communication, Endurance, Safety Awareness, and Trans fers Control.Currently, he has deficits of Locomotion, Balance, Self-Care, Communication, Endurance, and Safety Awareness.Pt. is now referred to [facility] for acute in-patient re habilitation in order to maximize patient's functional independence in activities of daily living, st rength, ROM, and mobility.- Rehab Goal Patient has realistic goal of being discharged at assistance level 6-Christy to reside at Home with Pt self. MDM/PLAN: - Physical Therapy Gait dysfunction - to improve, our physical therapists will perform initial evaluation of pt's statu s upon admission and devise an individualized program for Gait Training, and Wheel Chair mobility Need for home safety evaluation - to improve, our physical therapists will perform initial evaluatio n of pt's status upon admission and devise an individualized program for Home Evaluation Need in caregiver upon discharge - to improve, our physical therapists will perform initial evaluati on of pt's status upon admission and devise an individualized program for Caregiver Training New precaution - to improve, our physical therapists will perform initial evaluation of pt's status upon admission and devise an individualized program for Patient precaution education Edema - to improve, our physical therapists will perform initial evaluation of pt's status upon admi ssion and devise an individualized program for Elevation Training, and Lymphedema Therapy Poor balance - to improve, our physical therapists will perform initial evaluation of pt's status up on admission and devise an individualized program for Balance Training Poor endurance - to improve, our physical therapists will perform initial evaluation of pt's status upon admission and devise an individualized program for Endurance Training Weakness - to improve, our physical therapists will perform initial evaluation of pt's status upon a dmission and devise an individualized program for Aquatic Therapy, Neuromuscular Reeducation, and Str engthening Achieving independence - to improve, our physical therapists will perform initial evaluation of pt's status upon admission and devise an individualized program for Community Reintegration Activities - Occupational Therapy ADL deficits - to improve, our occupation therapists will perform initial evaluation of pt's status upon admission and devise an individualized program for Bathing, Bed mobility, Community Reintegratio n, Cooking, Dressing, Eating, Fine Motor Skills, Grooming, Homemaking, Kitchen Mobility, Laundry, Pat ient Education, Safety Awareness, Splinting - Positioning, Transfers(Toilet, Tub, Shower), and Wheel Chair Management Need for point of care specialist - to improve, our occupation therapists will perform initial evaluation of pt's status upon admission and devise an individualized program for Caregiver Training Weakness - to improve, our occupation therapists will perform initial evaluation of pt's status upon admission and devise an individualized program for Aquatic Therapy, Balance, Endurance, UE ROM, and UE strengthening - Other See attached MAR (Medication Administration Record) - Diet Type Continue Regular - Diet - Liquid Texture Continue Regular - Tube Feed Continue N/A - Bladder care per protocol - DVT Risk due to restricted mobility and age - Skin Breakdown Risk due to restricted mobility and age - Cardiac Precaution Monitor blood pressure, heart rate, lower extremity edema, notify MD for shortness of breath or ches t pain - Weight Bearing Precaution WBAT left LE - Fall Precaution Bed alarm TABS alarm Wheel chair alarm - Skin care per protocol - Diet - Solid Texture Continue Regular - Shower allowing shower for Dementia, TBI, Stroke, or others FUNCTIONAL STATUS: UPDATED AT WEEKLY TEAM CONFERENCE - Bladder Same accident frequency: 7-Ind - No accidents in the past 7 days - Bowel Same accident frequency: 7-Ind - No accidents in the past 7 days - Walking Same score based on distance walked: 0(N/A) Same score based on distance walked: 1(<=50ft) Same score based on distance walked: 2(50-149ft) - Wheelchair Same score based on distance traveled: 0(N/A) FUNCTIONAL STATUS: - Self-Care A. Eating Ind B. Grooming Ind C. Bathing sup D. Dressing - Upper sup E. Dressing - Lower sup F. Toileting sup - Sphincter Control G. Bladder control Christy H. Bowel control Christy - Transfers Control I. Bed/Chair/Wheelchair sup J. Toilet Ind K. Tub/Shower Drake - Locomotion L. Walk/Wheelchair (B) sup M. Stairs Drake - Communication N. Comprehension (B) Ind O. Expression (B) Ind - Social Cognition P. Social Interaction Ind Q. Problem Solving Ind R. Memory Ind - Endurance Good - Balance Good - Safety Awareness Good QI SCORES: - Self-Care A. Eating 04-Supervision or touching assistance B. Oral hygiene 04-Supervision or touching assistance C. Toileting hygiene 04-Supervision or touching assistance E. Shower/bathe self 03-Partial/moderate assistance F. Upper body dressing 09-Not applicable G. Lower body dressing 01-Dependent H. Putting on/taking off footwear 01-Dependent - Mobility A. Roll left and right 88-Not attempted due to medical condition or safety concerns B. Sit to lying 04-Supervision or touching assistance C. Lying to sitting on side of bed 88-Not attempted due to medical condition or safety concerns D. Sit to stand 04-Supervision or touching assistance E. Chair/[id number] transfer 03-Partial/moderate assistance F. Toilet transfer 03-Partial/moderate assistance G. Car transfer 03-Partial/moderate assistance I. Walk 10 feet 03-Partial/moderate assistance J. Walk 50 feet with two turns 03-Partial/moderate assistance K. Walk 150 feet 88-Not attempted due to medical condition or safety concerns L. Walking 10 feet on uneven surfaces 88-Not attempted due to medical condition or safety concerns M. 1 step (curb) 88-Not attempted due to medical condition or safety concerns N. 4 steps 88-Not attempted due to medical condition or safety concerns O. 12 steps 88-Not attempted due to medical condition or safety concerns P. Picking up object 88-Not attempted due to medical condition or safety concerns R. Wheel 50 feet with two turns 09-Not applicable S. Wheel 150 feet 09-Not applicable - Bladder and Bowel Bladder continence 0-Always continent Bowel continence 0-Always continent - Endurance Fair - Balance Fair - Safety Awareness Fair CURRENT [facility]. DEFICITS: Self-Care, Endurance, Balance, Safety Awareness, and Mobility SIGNATURE PANEL: (CDT)
[2021-11-04] MEDS: ATORVASTATIN 80 MG TAB PO SCH (19:27)
[2021-11-04] MEDS: DOCUSATE NA/SENNA CONC 1 TAB PO SCH (19:29)
[2021-11-05] MEDS: terbinafine HCL 250 MG TAB PO SCH (07:47)
[2021-11-05] MEDS: APIXABAN 2.5 MG TABLET PO SCH (07:47)
[2021-11-05] MEDS: FLUOXETINE 20 MG CAP PO SCH (07:47)
[2021-11-05] MEDS: MULTIVIT W/ MINERAL TAB PO SCH (07:47)
[2021-11-05] MEDS: ASPIRIN 81 MG CHEWABLE TABLET PO SCH (07:47)
[2021-11-05] MEDS: METOPROLOL TAR 25 MG TAB PO SCH (07:48)
[2021-11-05] MEDS: ENSURE HIGH PROTEIN 237 ML CAN PO SCH (07:48)
[2021-11-05 07:50] VITALS: BP 132/83
[2021-11-05 08:17] VITALS: TEMP 96.8
--- NOTE | 2021-11-07 16:01 | R.DS ---
DISCHARGE SUMMARY FACILITY [facility] MR# [id number] NAME AZAM TEJEDA ADDRESS [address] [address] PHONE DATE OF 1960 AGE 61 SSN# [id number] GENDER Male DEXTERITY Unknown dexterity MARITAL STATUS Single (Never ) RACE Unknown race ENCOUNTER PHYSICIAN Dr. Domingo Novak M.D. 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 DATE OF ADMISSION 10/22/2021 20:49 (CDT) MEDICATION ALLERGIES: No Known Drug Allergies (NKDA) ENVIRONMENTAL ALLERGIES: - Substance Allergies None Known - Other Allergies None Known DISCHARGE MEDICATIONS: Other- ContinueSee attached MAR (Medication Administration Record). NURSING: - Shower allowing shower - Bladder care per protocol - Skin care per protocol PRECAUTIONS: - Fall Precaution Bed alarm TABS alarm Wheel chair alarm - DVT Risk due to restricted mobility and age - Cardiac Precaution Monitor blood pressure, heart rate, lower extremity edema, notify MD for shortness of breath or chest pain - Skin Breakdown Risk due to restricted mobility and age ACTIVITIES OOB only with supervision THERAPIES: - Dietary and Nutrition Adequate Nutrition Nutritional Education Nutritional Supplements - Occupational Therapy Cognitive Retraining Patient needs Occupational Therapy for a daily minimum of 1.5 hours at least 5 out of 7 days, to impr ove Activities of Daily Living, including: Eating, Grooming, Bathing, Dressing, Toileting, Toilet Tra nsfers, Community Reintegration, Higher functional activities, Adaptive Equipment, Splinting, Househo ld Tasks, and Other activities as determined Visual Perceptual Training - Speech Therapy Expressive Language Skills Memory Strategies Patient needs Speech Therapy for a daily minimum of 1.5 hours at least 5 out of 7 days, to improve: C ognition, Language Skills, and Compensatory Strategies Receptive Language Skills Speech Intelligibility Training - Physical Therapy Patient needs Physical Therapy for a daily minimum of 1.5 hours at least 5 out of 7 days, to improve: Mobility, Strengthening, Transfers, Stretching, ROM, Endurance, Ability to manage stairs, Gait, and Balance HISTORY OF PRESENT ILLNESS: On 10/18/2021 Pt. presented to [facility] with sudden onset of left-side weakness.Pt. 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 was independent/mod-I in Loc omotion and Self-Care; and he had good Balance, Communication, Endurance, Safety Awareness, and Trans fers Control.Currently, he has deficits of Locomotion, Balance, Self-Care, Communication, Endurance, and Safety Awareness.Pt. is now referred to [facility] for acute in-patient re habilitation in order to maximize patient's functional independence in activities of daily living, st rength, ROM, and mobility.- Rehab Goal Patient has realistic goal of being discharged at assistance level 6-Christy to reside at Home with Pt self. CARDIAC PRECAUTION: On 10/22/2021 the following precautions were added for the patient: Cardiac Precaution - Monitor bloo d pressure, heart rate, lower extremity edema, notify MD for shortness of breath or chest pain. On 10/23/2021 the following precautions were added for the patient: Cardiac Precaution - Monitor blo od pressure, heart rate, lower extremity edema, notify MD for shortness of breath or chest pain. On 10/28/2021 the following precautions were removed for the patient: Cardiac Precaution - Monitor b lood pressure, heart rate, lower extremity edema, notify MD for shortness of breath or chest pain. On 10/29/2021 the following precautions were added for the patient: Cardiac Precaution - Monitor blo od pressure, heart rate, lower extremity edema, notify MD for shortness of breath or chest pain. On 10/22/2021 the following precautions were removed for the patient: Cardiac Precaution - Monitor bl ood pressure, heart rate, lower extremity edema, notify MD for shortness of breath or chest pain, and Cardiac Precaution - Monitor blood pressure, heart rate, lower extremity edema, notify MD for short ness of breath or chest pain. The following precautions were added for the patient: DVT Risk - due to restricted mobility and age. On 10/23/2021 the following precautions were added for the patient: DVT Risk - due to restricted mob ility and age. On 10/28/2021 the following precautions were removed for the patient: DVT Risk - due to restricted m obility and age. On 10/29/2021 the following precautions were added for the patient: DVT Risk - due to restricted mob ility and age. The following precautions were removed for the patient: DVT Risk - due to restricted mobility and age , and DVT Risk - due to restricted mobility and age. On 10/22/2021 the following precautions were added for the patient: Fall Precaution - Wheel chair ala rm, Fall Precaution - TABS alarm, and Fall Precaution - Bed alarm. On 10/28/2021 the following precautions were added for the patient: Fall Precaution - Bed alarm, Fal l Precaution - TABS alarm, and Fall Precaution - Wheel chair alarm. On 10/22/2021 the following precautions were removed for the patient: Fall Precaution - Bed alarm, Fa ll Precaution - TABS alarm, Fall Precaution - Wheel chair alarm, Fall Precaution - Bed alarm, Fall P recaution - TABS alarm, and Fall Precaution - Wheel chair alarm. The following precautions were added for the patient: Skin Breakdown Risk - due to restricted mobilit y and age. On 10/23/2021 the following precautions were added for the patient: Skin Breakdown Risk - due to res tricted mobility and age. On 10/28/2021 the following precautions were removed for the patient: Skin Breakdown Risk - due to r estricted mobility and age. On 10/29/2021 the following precautions were added for the patient: Skin Breakdown Risk - due to res tricted mobility and age. The following precautions were removed for the patient: Skin Breakdown Risk - due to restricted mobil ity and age, and Skin Breakdown Risk - due to restricted mobility and age. On 10/23/2021 the following precautions were added for the patient: Weight Bearing Precaution - WBAT left LE. On 10/28/2021 the following precautions were removed for the patient: Weight Bearing Precaution - WB AT left LE. The following precautions were added for the patient: Weight Bearing Precaution - WBAT left LE. On 10/29/2021 the following precautions were removed for the patient: Weight Bearing Precaution - WBA T left LE. The following precautions were added for the patient: Weight Bearing Precaution - WBAT left LE. DVT RISK: DIET - LIQUID TEXTURE: On 10/22/2021 Pt was upgraded to Regular Diet - Liquid Texture. DIET - SOLID TEXTURE: On 10/22/2021 Pt was upgraded to Regular Diet - Solid Texture. DIET TYPE: On 10/22/2021 Pt was upgraded to Regular Diet Type. FALL PRECAUTION: SKIN BREAKDOWN RISK: TUBE FEED: On 10/22/2021 Pt was changed to N/A Tube Feed. WEIGHT BEARING PRECAUTION: DISCHARGE PHYSICAL EXAM - Gen Alert and awake Lying in bed No apparent distress Oriented to: person, time, and place - Skin No skin breakdown. No abnormalities - Eyes No abnormalities - ENMT No abnormalities - Neck No abnormalities - CVS RRR - Chest No abnormalities - Abd Soft - GI Non distended No abnormalities - No abnormalities - Ext No significant edema - MSK 4+/5 weakness in left upper and lower extremity - Neuro 4/5 strength left upper and lower extremities. - Psych No abnormalities FUNCTIONAL STATUS: - Self-Care A. Eating 7-Ind B. Grooming 7-Ind C. Bathing 6-Christy D. Dressing - Upper 6-Christy E. Dressing - Lower 6-Christy F. Toileting 6-Christy - Sphincter Control G. Bladder control 6-Christy H. Bowel control 6-Christy - Transfers Control I. Bed/Chair/Wheelchair 6-Christy J. Toilet 7-Ind K. Tub/Shower 6-Christy - Locomotion L. Walk/Wheelchair (B) 6-Christy M. Stairs 6-Christy - Communication N. Comprehension (B) 7-Ind O. Expression (B) 7-Ind - Social Cognition P. Social Interaction 7-Ind Q. Problem Solving 7-Ind R. Memory 7-Ind - Endurance Good - Balance Good - Safety Awareness Good QI SCORES: - Self-Care A. Eating 04-Supervision or touching assistance B. Oral hygiene 04-Supervision or touching assistance C. Toileting hygiene 04-Supervision or touching assistance E. Shower/bathe self 03-Partial/moderate assistance F. Upper body dressing 09-Not applicable G. Lower body dressing 01-Dependent H. Putting on/taking off footwear 01-Dependent - Mobility A. Roll left and right 88-Not attempted due to medical condition or safety concerns B. Sit to lying 04-Supervision or touching assistance C. Lying to sitting on side of bed 88-Not attempted due to medical condition or safety concerns D. Sit to stand 04-Supervision or touching assistance E. Chair/[id number] transfer 03-Partial/moderate assistance F. Toilet transfer 03-Partial/moderate assistance G. Car transfer 03-Partial/moderate assistance I. Walk 10 feet 03-Partial/moderate assistance J. Walk 50 feet with two turns 03-Partial/moderate assistance K. Walk 150 feet 88-Not attempted due to medical condition or safety concerns L. Walking 10 feet on uneven surfaces 88-Not attempted due to medical condition or safety concerns M. 1 step (curb) 88-Not attempted due to medical condition or safety concerns N. 4 steps 88-Not attempted due to medical condition or safety concerns O. 12 steps 88-Not attempted due to medical condition or safety concerns P. Picking up object 88-Not attempted due to medical condition or safety concerns R. Wheel 50 feet with two turns 09-Not applicable S. Wheel 150 feet 09-Not applicable - Bladder and Bowel Bladder continence 0-Always continent Bowel continence 0-Always continent - Endurance Fair - Balance Fair - Safety Awareness Fair DISCHARGE INSTRUCTIONS: - Followup The patient will continue with INR-PT Weekly. - N/A Coumadin 5 mg daily. DISCHARGE PLAN, FOLLOW UP CARE PROVISIONS: - Estimated Length of Stay (days) 17. - Consensus on plan Discharge plan has been discussed with primary caregiver. Patient/Family is in agreement with the vale n. Primary caregiver is in agreement with the plan. - Patient/Family Goals Return home independently. - Potential barriers to discharge Any lines must be removed or patient/caregiver needs to be educated on line care. - Planned Living Setting Upon Discharge Home, to live alone. Transitional Living. Primary caregiver: Pt self. SIGNATURE PANEL: (CDT)
== END 2021-11-05 15:30 | disposition home or self-care (01) | DRG 57 ==
LOC: 5TH 20:49
PROVIDERS: ADMIT Psychiatry & Neurology Neurology with Special Qualifications in Child Neurology; ATTEND Psychiatry & Neurology Neurology with Special Qualifications in Child Neurology
DX: I69.354 Hemiplegia and hemiparesis following cerebral infarction affecting left non-dominant side (principal); I10 Essential (primary) hypertension; I48.91 Unspecified atrial fibrillation; Z20.822 Contact with and (suspected) exposure to COVID-19
CPT/HCPCS: 36415; 80048; 81003; 81015; 82040; 83735; 84134; 85025; 87086; 87088; 92507; 92523; 97110; 97112; 97116; 97129; 97130; 97161; 97530; 97542; J3420; U0003